=== PATIENT | male | born 1975 | race Caucasian/White ===

== ENCOUNTER → 2016-07-23 | Day surgery (SDC) | payer OTHER ==
[2016-07-16 15:22] VITALS: BMI 22.0
[~2016-07-23] VITALS: Ht 180.3 cm; Wt 72.7 kg
[~2016-07-23] MED LIST: BUDE0.09 PO; ERGO1CAP35 PO; ERGO500037 PO; FOLI1TAB7 PO; LEVO1TAB34 PO; LIDOCAINE HCL 2% 2 ML VIAL (20MG/ML) ONE; METH2.5T PO; METR-163 PO; MIDAZOLAM HCL 1 MG/ML 2ML VIAL ONE; MTR500 PO; ONDA4TAB65 PO; ONDA8TAB6 PO; OXYC-88 PO; OXYC15TA49 PO; OXYC1TAB3 PO; PRED10TA PO; PROC1TAB5 PO; PROPOFOL IV EMULSION 10 MG/ML 20 ML VIAL IV ONE; SODIUM CHLORIDE 0.9% 500ML 500 ML IV ONE; VNTHFA/IN INH
[2016-07-23 11:09] VITALS: Ht 180.3 cm; Wt 72.7 kg
[2016-07-23 11:34] VITALS: TEMP 36.9
--- NOTE | 2016-07-23 12:36 | Endo History and Physical ---
History & Physical Date of Service: Jul 23, 2016. Chief Complaint: crohns disease Referring Physician: Dr Arnulfo Arreaga History of Present Illness 40 yo CM who presents for colonoscopy secondary to Crohn's Disease. Past Medical History Gastrointestinal Disorder, Other Past Surgical History Hx Cardiac Surgery: No Hx Internal Defibrillator: No Hx Abdominal Surgery: Yes (2 COLON RESECTION, APPY, ILEECTOMY) Hx of Implantable Prosthesis: No Hx Post-Op Nausea and Vomiting: No Hx Cancer Surgery: No Hx Thoracic Surgery: No Hx Orthopedic: No Hx Urinary Tract Surgery: Yes (VASECTOMY) Family History IBD Social History Smoking Status: Never Smoker Hx Substance Use: No Hx Alcohol Use: No Allergies Coded Allergies: Vedolizumab (Verified Allergy, Severe, LEG SWOLLEN, 08/13/15) Azathioprine (Verified Allergy, Unknown, JOINTS SWELLING, 07/16/16) Infliximab (Verified Adverse Reaction, Unknown, "remicade stopped working for me", 08/13/15) Morphine (Verified Adverse Reaction, Unknown, "does not work for me;only dilaudid", 08/13/15) Current Medications Reported Home Medications Medications Dose Route/Sig Max Daily Dose Days Date Category Dose Instructions Oxycodone/Acetaminophen 10MG/325MG 1 Tab Tab 1 Tab PO Q4H PRN 07/16/16 Reported Zofran (Ondansetron Hcl) 4 Mg Tab 4 Mg PO PRN PRN 07/16/16 Reported Methotrexate 2.5 Mg Tab 6 Tab PO DAILY 07/16/16 Reported TAKES ON MONDAYS Folvite (Folic Acid) 1 Mg Tab 1 Mg PO 6XWK 07/16/16 Reported Budesonide 3 Mg Cap 3 Tab PO DAILY 07/16/16 Reported Flagyl (Metronidazole) 500 Mg Tab 500 Mg PO TID 07/16/16 Reported Compazine (Prochlorperazine Maleate) 10 Mg Tab 10 Mg PO Q6H PRN 07/16/16 Reported Vitamin D Cap (Ergocalciferol) 50,000 Interunit Cap 50,000 Inter.unit PO WK 07/30/15 Reported Vital Signs Weight (Kilograms): 72.73 Height (Feet): 5 Height (Inches): 11 Date Time Temp Pulse Resp B/P Pulse Ox O2 Delivery O2 Flow Rate FiO2 07/23/16 11:34 36.9 75 20 118/65 95 Room Air Physical Exam General Appearance: WD/WN, no apparent distress Respiratory/Chest: Auscultation: breath sounds normal Cardiovascular: Heart Auscultation: RRR Abdomen: Bowel Sounds: normal Inspection & Palpation: soft, non-distended, no tenderness, guarding & rebound Assessment and Plan Assessment: 40 yo CM who presents for colonoscopy secondary to Crohn's Disease. Plan: Proceed with colonoscopy.
--- NOTE | 2016-07-23 13:10 | Anesthesiology Progress Note ---
Anesthesia Post Op Note Date & Time Jul 23, 2016 at 13:10 Vital Signs Pain Intensity: 0 Vital Signs Past 12 Hours Date Time Temp Pulse Resp B/P Pulse Ox O2 Delivery O2 Flow Rate FiO2 07/23/16 12:57 86 20 93/62 95 Room Air 07/23/16 11:34 36.9 75 20 118/65 95 Room Air Notes Mental Status: alert / awake / arousable, participated in evaluation Pt Amnestic to Procedure: Yes Nausea / Vomiting: adequately controlled Pain: adequately controlled Airway Patency, RR, SpO2: stable & adequate BP & HR: stable & adequate Hydration State: stable & adequate Anesthetic Complications: no major complications apparent Pt doing well.
--- NOTE | 2016-07-23 13:22 | Discharge Instructions ---
Endoscopy Patient Instructions Date / Procedure(s) Performed Jul 23, 2016. Colonoscopy Allergy Information Coded Allergies: Vedolizumab (Verified Allergy, Severe, LEG SWOLLEN, 08/13/15) Azathioprine (Verified Allergy, Unknown, JOINTS SWELLING, 07/16/16) Infliximab (Verified Adverse Reaction, Unknown, "remicade stopped working for me", 08/13/15) Morphine (Verified Adverse Reaction, Unknown, "does not work for me;only dilaudid", 08/13/15) Discharge Date / Findings Jul 23, 2016. Crohn's Disease Anal fistula Poor bowel prep Medication Instructions OK to resume all medications today as prescribed Reported Home Medications Medications Dose Route/Sig Max Daily Dose Days Date Category Dose Instructions Oxycodone/Acetaminophen 10MG/325MG 1 Tab Tab 1 Tab PO Q4H PRN 07/16/16 Reported Zofran (Ondansetron Hcl) 4 Mg Tab 4 Mg PO PRN PRN 07/16/16 Reported Methotrexate 2.5 Mg Tab 6 Tab PO DAILY 07/16/16 Reported TAKES ON MONDAYS Folvite (Folic Acid) 1 Mg Tab 1 Mg PO 6XWK 07/16/16 Reported Budesonide 3 Mg Cap 3 Tab PO DAILY 07/16/16 Reported Flagyl (Metronidazole) 500 Mg Tab 500 Mg PO TID 07/16/16 Reported Compazine (Prochlorperazine Maleate) 10 Mg Tab 10 Mg PO Q6H PRN 07/16/16 Reported Vitamin D Cap (Ergocalciferol) 50,000 Interunit Cap 50,000 Inter.unit PO WK 07/30/15 Reported Provider Instructions Activity Restrictions - No exercising or heavy lifting for 24 hours. - Do not drink alcohol the day of the procedure. - Do not drive a car or operate machinery until the day after the procedure. - Do not make any important decisions or sign important papers in 24 hours after the procedure. Following Day: - Return to full activity which may include returning to work/school. Diet Start your diet with liquids and light foods (jello, soup, juice, toast). Then eat your usual diet if not nauseated. Treatment For Common After Affects For mild abdominal pain, bloating, or excessive gas: - Rest - Eat lightly - Lie on right side Follow-Up Information Follow-up with Dr Arnulfo Arreaga as scheduled Anesthesia Information What You Should Know You have had a procedure that required some medicine to reduce anxiety and discomfort. This treatment is called moderate sedation. After receiving the treatment, you may be sleepy, but you will be able to breathe on your own. The effects of the treatment may last for several hours. Follow these instructions along with Activity/Diet recommendations noted above: * Do NOT do anything where dizziness or clumsiness would be dangerous. * Rest quietly at home today, then you can be up and about tomorrow. * Have a responsible person stay with you the rest of today. * You may have had an I.V. today. If so, you may take the dressing off later today. Recommendations Call your doctor if: * Trouble breathing * Continuous vomiting for more than 24 hours * Temperature above 101 degrees * Severe abdominal pain or bloating * Pain not relieved by pain medicine ordered * There is increased drainage or redness from any incision * A large amount of rectal bleeding greater than 2-3 tablespoons. (If you had a polyp/s removed or have hemorrhoids, a small amount of blood - from the rectum is to be expected.) * You have any unanswered questions or concerns. IN THE EVENT OF A SERIOUS EMERGENCY, GO TO THE NEAREST EMERGENCY ROOM Your discharge instructions were prepared by provider Jerad Conde. Patient Instructions Signature Page Param Melissa Patient (or Guardian) Signature/Date: I have read and understand the instructions given to me by my caregivers. Caregiver/RN/Doctor Signature/Date: The above-named patient and/or guardian has received patient instructions on this date. + Original Patient Signature Page (only) stays with chart. Please make copy for patient.
[2016-07-23 13:27] VITALS: BP 120/70; PULSE 70; O2SAT 98
--- NOTE | 2016-07-23 13:28 | GI REPORT ---
Procedure Date: 07/23/2016 12:33 PM Procedure: Colonoscopy Indications: Follow-up of Crohn's disease Medicines: Monitored Anesthesia Care Complications: No immediate complications. Estimated Blood Loss: Estimated blood loss: none. Procedure: Pre-Anesthesia Assessment: - Prior to the procedure, a History and Physical was performed, and patient medications and allergies were reviewed. The patient's tolerance of previous anesthesia was also reviewed. The risks and benefits of the procedure and the sedation options and risks were discussed with the patient. All questions were answered, and informed consent was obtained. Prior Anticoagulants: The patient has taken no previous anticoagulant or antiplatelet agents. ASA Grade Assessment: II - A patient with mild systemic disease. After reviewing the risks and benefits, the patient was deemed in satisfactory condition to undergo the procedure. After I obtained informed consent, the scope was passed under direct vision. Throughout the procedure, the patient's blood pressure, pulse, and oxygen saturations were monitored continuously. The scope was introduced through the anus with the intention of advancing to the ileum. The scope was advanced to the sigmoid colon before the procedure was aborted. Medications were given. The colonoscopy was aborted due to poor bowel prep with stool present. Lavage did not allow for the successful completion of the procedure. The colonoscopy was performed without difficulty. The patient tolerated the procedure well. The quality of the bowel preparation was inadequate. No anatomical landmarks were photographed. Findings: The perianal exam findings include perianal fistula. Semi-solid stool was found in the rectum and in the sigmoid colon, precluding visualization. Impression: - The procedure was aborted due to poor bowel prep with stool present. - Preparation of the colon was inadequate. - Perianal fistula found on perianal exam. - Stool in the rectum and in the sigmoid colon. - No specimens collected. Recommendation: - Resume previous diet. - Continue present medications. - Repeat colonoscopy because the bowel preparation was poor. - Return to GI office as previously scheduled. Jerad Conde, 07/23/2016 1:27:25 PM This report has been signed electronically. Note Initiated On: 07/23/2016 12:33 PM I attest to the content of the Intraoperative Record and orders documented therein, exceptions below
== END | disposition home or self-care (01) ==
LOC: C.GI 10:54
PROVIDERS: ATTEND Internal Medicine
DX: K50.90 Crohn's disease, unspecified, without complications (principal); Z53.09 Procedure and treatment not carried out because of other contraindication; Z90.49 Acquired absence of other specified parts of digestive tract; Z88.8 Allergy status to other drugs, medicaments and biological substances; Z83.79 Family history of other diseases of the digestive system; Z88.5 Allergy status to narcotic agent

== ENCOUNTER 2016-10-01 13:03 | Inpatient (IN) | payer OTHER ==
[~2016-10-01] VITALS: Ht 180.3 cm; Wt 72.6 kg
[~2016-10-01 13:03] MED LIST changes: -ERGO500037 PO; -LEVO1TAB34 PO; -LIDOCAINE HCL 2% 2 ML VIAL (20MG/ML) ONE; -MIDAZOLAM HCL 1 MG/ML 2ML VIAL ONE; -MTR500 PO; -ONDA8TAB6 PO; -OXYC15TA49 PO; -OXYC1TAB3 PO; -PRED10TA PO; -PROPOFOL IV EMULSION 10 MG/ML 20 ML VIAL IV ONE; -SODIUM CHLORIDE 0.9% 500ML 500 ML IV ONE; -VNTHFA/IN INH
[2016-10-01] MEDS ORDERED: OPTIRAY 320 IV PRN (13:30)
[2016-10-01] MEDS ORDERED: SODIUM CHLORIDE 0.9% 1000ML 2,000 ML IV ONE (13:30)
[2016-10-01] MEDS: ONDANSETRON INJ 2 MG/ML 2 ML VIAL IV PRN ×3 (13:41→19:29)
[2016-10-01] MEDS: HYDROmorphone INJ 1 MG/ML SYR IV PRN ×4 (13:42→19:22)
--- NOTE | 2016-10-01 13:52 | EMERGENCY ROOM VISIT NOTE ---
History Report prepared by Je: Lalitha Fletcher Under the Supervision of: Dr. Hal Garcia M.D. First contact with patient: 13:21 Chief Complaint: ABDOMINAL PAIN Nursing Triage Summary: Pt transferred from [facility] for eval of Crohn's disease. Dr. Conde contacted about patient's transfer. History of Present Illness The patient is a 40 year old male who presents to the Emergency Room with complaints of constant abdominal pain beginning yesterday. The patient states that he had a history of Crohn's Disease and has had it for 11 years. He notes that he has a history of multiple surgeries and has also had fistulas. He reports that his pain today feels similar to when he had a fistula but it is difficult to evaluate due to diffuse tenderness. The patient complains of nausea , fever, and decreased appetite. He states that he was seen by his doctor this morning and was sent here with a fever and high white blood count. The patient denies any leg pain. I spoke to the patient's PCP prior to arrival and he notes that the patient had a high WBC count and a fever. He notes that the patient is on Vancomycin, Flagyl, and Ancef. Source of History: patient Onset: yesterday Position: abdomen Quality: other (tender) Timing: constant Associated Symptoms: + fevers, + nausea Note: The patient denies any leg pain. Review of Systems All systems have been listed, reviewed, and are negative other than those previously mentioned. Please see Additional Medical History Sheet. Past Medical & Surgical Medical Problems: (1) Crohn's disease (2) Exacerbation of Crohn's disease (3) Knee effusion, right (4) Knee pain (5) Knee swelling Surgical Problems: (1) H/O resection of small bowel (2) Hx of appendectomy Family History FH: Crohn's disease Social History Smoking Status: Never Smoker Marital Status: single Occupation Status: unemployed Current/Historical Medications Scheduled Budesonide (Budesonide), 3 TAB PO DAILY Ergocalciferol (Vitamin D Cap), 50,000 INTER.UNIT PO WK Folic Acid (Folvite), 1 MG PO 6XWK Methotrexate (Methotrexate), 6 TAB PO DAILY Scheduled PRN Ondansetron Hcl (Zofran), 4 MG PO PRN PRN for Nausea Oxycodone/Acetaminophen 10MG/325MG (Oxycodone/Acetaminophen 10MG/325MG), 1 TAB PO Q4H PRN for Pain Prochlorperazine Maleate (Compazine), 10 MG PO Q6H PRN for Nausea Allergies Coded Allergies: Vedolizumab (Verified Allergy, Severe, LEG SWOLLEN, 10/01/16) Azathioprine (Verified Allergy, Unknown, JOINTS SWELLING, 10/01/16) Infliximab (Verified Adverse Reaction, Unknown, "remicade stopped working for me", 10/01/16) Morphine (Verified Adverse Reaction, Unknown, "does not work for me;only dilaudid", 10/01/16) Uncoded Allergies: ENTYVIO (Allergy, Unknown, SWELLING, 10/01/16) Physical Exam Vital Signs Date Time Temp Pulse Resp B/P (MAP) Pulse Ox O2 Delivery O2 Flow Rate FiO2 10/01/16 17:53 100 14 10/01/16 17:48 99 17 10/01/16 17:43 98 13 10/01/16 17:38 96 12 10/01/16 17:33 96 12 10/01/16 17:33 105 10/01/16 17:28 102 15 10/01/16 17:23 106 16 10/01/16 17:18 103 13 95 10/01/16 17:13 103 14 96 10/01/16 17:08 105 14 95 10/01/16 17:03 105 18 95 10/01/16 16:58 105 14 95 10/01/16 16:53 106 15 95 10/01/16 16:48 106 14 96 10/01/16 16:43 105 16 97 10/01/16 16:38 106 14 95 10/01/16 16:33 103 12 95 10/01/16 16:28 104 12 96 10/01/16 16:23 102 11 95 10/01/16 16:22 101 20 130/78 96 Room Air 10/01/16 16:22 130/78 10/01/16 16:08 110 15 10/01/16 16:03 111 18 10/01/16 15:58 112 20 10/01/16 15:53 106 17 10/01/16 15:48 113 16 10/01/16 15:43 112 15 10/01/16 15:38 110 15 10/01/16 15:33 110 16 10/01/16 15:28 111 15 10/01/16 15:24 126/79 10/01/16 15:23 110 15 10/01/16 15:18 110 14 10/01/16 15:13 109 15 10/01/16 15:08 107 14 10/01/16 15:03 104 15 10/01/16 14:58 105 17 10/01/16 14:53 100 14 10/01/16 14:48 97 19 10/01/16 14:43 102 19 10/01/16 14:38 198 15 98 10/01/16 14:33 200 22 98 10/01/16 14:30 99 15 126/79 100 Room Air 10/01/16 14:29 126/79 10/01/16 14:28 102 15 10/01/16 14:23 99 13 10/01/16 14:18 97 14 10/01/16 14:13 101 21 10/01/16 14:08 105 24 10/01/16 14:03 100 16 10/01/16 13:58 97 15 10/01/16 13:53 94 21 10/01/16 13:48 95 13 10/01/16 13:43 96 13 99 10/01/16 13:38 94 23 98 10/01/16 13:33 95 10/01/16 13:33 97 17 99 10/01/16 13:28 98 Room Air 10/01/16 13:09 37.8 99 18 117/80 100 Room Air 10/01/16 13:07 117/80 Physical Exam GENERAL: Patient awake, alert, oriented x 3. Patient follows commands. Patient does not appear toxic. He is in moderate to severe distress. Patient is mildly dehydrated. SKIN: No erythema, pallor, cyanosis or rash HEENT: Normal head, pupils equal, reactive to light and accommodation. Ears normal. Oral cavity and posterior pharynx appear normal. Mucous membranes are dry. Neck: Without adenopathy, no neck vein distention. LUNGS: Clear to auscultation. No wheezes, no rales, no rhonchi. HEART: No murmurs. No gallops. No rubs ABDOMEN: No masses, marked tenderness to the right lower abdomen with positive rebound and guarding, no hepatomegaly or splenomegaly. Old well healed mid abdominal scar. EXTREMITIES: No signs of trauma. No pedal or pretibial edema. No calf or thigh tenderness. NEUROLOGIC: Cranial nerves II-XII within normal limits. No gross motor sensory function deficits. Medical Decision & Procedures Laboratory Results Test 10/01/16 14:03 10/01/16 14:50 10/01/16 17:37 Est Creatinine Clear Calc Drug Dose 100.8 ml/min Total Bilirubin 0.6 mg/dl (0.2-1) Aspartate Amino Transf (AST/SGOT) 14 U/L (15-37) Alanine Aminotransferase (ALT/SGPT) 23 U/L (12-78) Alkaline Phosphatase 106 U/L (45-117) Total Protein 7.5 gm/dl (6.4-8.2) Albumin 3.0 gm/dl (3.4-5.0) Globulin 4.5 gm/dl (2.5-4.0) Albumin/Globulin Ratio 0.7 (0.9-2) Lipase 85 U/L (73-393) Urine Color DK YELLOW Urine Appearance CLEAR (CLEAR) Urine pH 5.5 (4.5-7.5) Urine Specific [place] 1.022 (1.000-1.030) Urine Protein NEG (NEG) Urine Glucose (UA) NEG (NEG) Urine Ketones NEG (NEG) Urine Occult Blood NEG (NEG) Urine Nitrite NEG (NEG) Urine Bilirubin NEG (NEG) Urine Urobilinogen NEG (NEG) Urine Leukocyte Esterase NEG (NEG) Lactic Acid Level 0.5 mmol/L (0.4-2.0) Laboratory results as stated above per my review. Medications Administered Medications (Trade) Dose Ordered Sig/Alo Route Start Time Stop Time Status Last Admin Dose Admin Hydromorphone HCl (Dilaudid Inj) 1 mg Q1HWA PRN IV 10/01/16 13:30 10/01/16 20:54 DC 10/01/16 19:22 1 MG Ondansetron HCl (Zofran Inj) 4 mg Q1HWA PRN IV 10/01/16 13:30 10/01/16 20:54 DC 10/01/16 19:29 4 MG Sodium Chloride 2,000 ml @ 1,000 mls/hr Q2H ONCE IV 10/01/16 13:30 10/01/16 15:29 DC 10/01/16 13:41 1,000 MLS/HR Promethazine HCl 12.5 mg/Sodium Chloride 50.5 ml @ 204 mls/hr NOW STAT IV 10/01/16 15:36 10/01/16 15:50 DC 10/01/16 15:56 204 MLS/HR Sodium Chloride 1,000 ml @ 250 mls/hr Q4H STAT IV 10/01/16 15:50 10/01/16 19:49 DC 10/01/16 15:58 250 MLS/HR Hydromorphone HCl (Dilaudid Inj) 1 mg Q30M PRN IV 10/01/16 16:00 10/01/16 20:49 DC 10/01/16 15:59 1 MG Piperacillin Sod/ Tazobactam Sod (Zosyn Iv) 4.5 gm NOW STAT IV 10/01/16 16:35 10/01/16 16:36 DC 10/01/16 16:47 4.5 GM ECG Indication: abdominal pain Rate (beats per minute): 97 Rhythm: sinus rhythm Findings: 1st degree AV block, no acute ischemic change, no ectopy ED Course 1321: Past medical records reviewed. The patient was evaluated in room A11. A complete history and physical examination was performed. 1330: Sodium Chloride 2000 ml @ 1000 mls/hr IV, Zofran Inj 4mg PRN IV nausea, Dilaudid Inj 1mg PRN IV pain. 1532 the patient remains nauseous despite Zofran. He was ordered Phenergan. The patient has been unable to drink any of his contrast material. The patient will get a CT without oral contrast. The case will be signed out to Dr. Francisco at 15:44. Medical Decision Differential diagnosis includes Crohn's disease, bowel obstruction, fistula, abscess. The patient was sent here from [facility]. The patient has a long history of Crohn's disease and fistulas. He has required 2 surgeries. The patient has been seen by Dr. Conde in the past from gastroenterology. The patient is now here with pain for the past day. He is very nauseous and vomiting. The patient's white count was found to be elevated. Additional labs, urinalysis and imaging were obtained. Please see above. The patient was given IV pain medication and anti-emetics. Multiple labs were obtained. Please see above. White count is elevated. Patient was given IV fluids and pain medication. He was given Zofran and Phenergan for nausea. CT imaging results are pending. Case was signed off to Dr. Francisco at change of shift. Blood pressure Screening: Patient was found to have normal blood pressure on screening and does not require follow up. Medication Reconciliation: I attest that I have personally reviewed the patient' s current medication list. Impression Primary Impression: Exacerbation of Crohn's disease Scribe Attestation The scribe's documentation has been prepared under my direction and personally reviewed by me in its entirety. I confirm that the note above accurately reflects all work, treatment, procedures, and medical decision making performed by me. Departure Information Referrals Arnulfo Arreaga D.O. (PCP) Patient Instructions [facility]
[2016-10-01 14:13] LABS: BASO % 0.2 %; BASO ABS # 0.03 K/uL (0-0.2); COMPLETE YES; EOS % 0.5 %; HEMATOCRIT 37.6 % (42-52); IG% 0.3 %; LYMPH % 15.9 %; LYMPH ABS # 2.27 K/uL (1.2-3.4); MEAN CELL VOLUME 75.4 fL (80-100); MEAN CORPUSCULAR HEMOGLOBIN 24.6 pg (25-34); MEAN CORPUSCULAR HGB CONC 32.7 g/dl (32-36); MEAN PLATELET VOLUME 9.3 fL (7.4-10.4); MONO % 10.1 %; PLATELET COUNT 255 K/uL (130-400); RED BLOOD COUNT 4.99 M/uL (4.7-6.1); WHITE BLOOD COUNT 14.29 K/uL (4.8-10.8)
[2016-10-01 14:35] LABS: BUN/CREATININE RATIO 7.8 (10-20); POTASSIUM 3.8 mmol/L (3.5-5.1)
[2016-10-01 14:38] LABS: ALB/GLOB RATIO 0.7 (0.9-2)
[2016-10-01 14:45] LABS: CALCIUM 8.7 mg/dl (8.5-10.1)
[2016-10-01 15:27] LABS: MANUAL MICROSCOPIC REQUIRED? NO; REVIEW REQ? NO; URINE APPEARANCE CLEAR (CLEAR); URINE BILIRUBIN NEG (NEG); URINE COLOR DK YELLOW; URINE NITRITE NEG (NEG); URINE PH 5.5 (4.5-7.5); URINE SPECIFIC GRAVITY 1.022 (1.000-1.030); UROBILINOGEN NEG (NEG); ZZUR CULT IF INDIC CLEAN CATCH NO
[2016-10-01] MEDS ORDERED: PROMETHAZINE HCL INJ 12.5 MG in SODIUM CHLORIDE 0.9% 50ML 50 ML IV STA (15:36)
[2016-10-01] MEDS ORDERED: PROMETHAZINE HCL INJ 25 MG in SODIUM CHLORIDE 0.9% 50ML 50 ML IV STA (15:50)
[2016-10-01] MEDS ORDERED: SODIUM CHLORIDE 0.9% 1000ML 1,000 ML IV STA (15:50)
[2016-10-01] MEDS ORDERED: PROMETHAZINE HCL INJ 25 MG/ML 1 ML VIAL ONE (15:53)
[2016-10-01] MEDS ORDERED: HYDROmorphone INJ 1 MG/ML SYR IV PRN (16:00)
--- NOTE | 2016-10-01 16:29 | DIAGNOSTIC IMAGING REPORT ---
CT ABD/PELVIS IV CONTRAST ONLY CLINICAL HISTORY: Abdominal pain. Crohn's disease. Possible fistula. COMPARISON STUDY: 07/13/2015 TECHNIQUE: Following the IV administration of 116 mL of Optiray-320, CT scan of the abdomen and pelvis was performed from the lung bases to the proximal femurs. Images are reviewed in the axial, sagittal, and coronal planes. IV contrast was administered without complication. CT DOSE: 377.39 mGy.cm FINDINGS: Lower chest: There are right infrahilar airspace opacities suspicious for pneumonia. Imaging subsequent to treatment is recommended in follow-up. Liver: The contrast-enhanced liver is normal in size, contour, and attenuation. There is no intrahepatic biliary ductal dilatation. The hepatic veins and portal veins are patent. Gallbladder: Unremarkable. Spleen: Normal in size and attenuation. Pancreas: Unremarkable. Adrenal glands: Unremarkable. Kidneys: There is symmetric renal cortical enhancement. The kidneys are normal in size without hydronephrosis. Bowel: Bowel evaluation is significantly limited as no oral contrast was administered. There are postsurgical changes of a prior distal ileal resection with ileocolonic anastomosis. There is distal ileal bowel wall thickening with infiltration of the adjacent fat, consistent with active Crohn's disease. There are no transition zones to indicate bowel obstruction. There is infiltration of the soft tissues within the left gluteal fold. There is a suspected left-sided perianal fistula. There is a tiny fluid collection within the left medial gluteal fold consistent with a small abscess. This measures approximately 17 mm in diameter. Peritoneum: There is no intraperitoneal free air or abdominal ascites. Vasculature: The abdominal aorta is normal in course and caliber. Adenopathy: There are enlarged central mesenteric lymph nodes, likely reactive. Pelvic viscera: The bladder, and pelvic viscera are unremarkable. Skeletal structures: No destructive osseous lesions are seen. IMPRESSION: 1. Right lower lobe perihilar airspace consolidation consistent with pneumonia. Imaging subsequent to treatment is recommended in follow-up 2. Postsurgical changes of the distal ileal resection with ileocolonic anastomosis 3. Distal ileal bowel wall thickening with infiltration of the surrounding fat. The findings are consistent with active Crohn's disease 4. Infiltration the fat in the left gluteal fold. There is a 17 mm left medial gluteal fold abscess. 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 5. Central mesenteric lymphadenopathy, likely reactive. Electronically signed by: Lalo Aguilar M.D. 10/01/2016 4:28 PM Dictated Date/Time: 10/01/2016 4:20 PM
[2016-10-01] MEDS ORDERED: PIPERACILLIN/TAZOBACTAM 4.5 GM/100ML D5W IV STA (16:35)
[2016-10-01] MEDS ORDERED: ONDANSETRON INJ 2 MG/ML 2 ML VIAL IV PRN (18:00)
[2016-10-01] MEDS ORDERED: ACETAMINOPHEN 325 MG TAB PO PRN (18:00)
[2016-10-01 18:14] VITALS: O2SAT 96; Ht 180.3 cm; Wt 72.6 kg
--- NOTE | 2016-10-01 18:24 | EMERGENCY ROOM VISIT NOTE ---
ED Visit Note First contact with patient: 15:47 I received this patient at change of shift signout from Dr. Garcia. Please see his note for complete history and physical. The patient is a 40-year-old male who has a history of Crohn's disease. He is had problems with fistulas as well as medication noncompliance in the past. He presented to the emergency department today with severe pain low-grade fever and an elevated white blood cell count. He was sent to our facility for a CT the abdomen and pelvis because the previous facility he presented with unable to do a CAT scan. The patient's CAT scan report did show signs of inflammation which could be consistent with Crohn's disease. He also had a gluteal cleft abscess which he states is not a new finding for him. He was treated with IV fluids IV pain medicine and IV antiemetics. On subsequent reevaluation he was resting comfortable he. I discussed his case with the on-call [facility] hospitalist. They've agreed to evaluate the patient in the emergency department for further management and disposition. I discussed this patient with the on-call teacher physically impaired. He is recommended further treatment with IV antibiotics and they will evaluate him in consultation for further management.
[2016-10-01] MEDS: LEVALBUTEROL 1.25MG/0.5ML NEB INH SCH (21:00)
[2016-10-01] MEDS: IPRATROPIUM BROMIDE NEB SOLN 0.02% 2.5 ML VIAL INH SCH (21:00)
[2016-10-01] MEDS ORDERED: LEVALBUTEROL/IPRATROPIUM NEB INH SCH (21:00)
[2016-10-01] MEDS ORDERED: VANCOMYCIN CONSULT ACTIVE PRN (21:04)
--- NOTE | 2016-10-01 21:04 | History and Physical ---
History & Physical Date & Time of Service: Oct 01, 2016 at 20:50 Chief Complaint: Exacerbation Of Chrons Disease Primary Care Physician: Arnulfo Arreaga D.O. History of Present Illness Source: patient, hospital records 40 year old male with history of Crohn's Disease on Methotrexate, s/p Ileal Resection with Ileocolic Anastomosis 2014 in [facility], Perianal Abscess s/p Drainage March 2016, presenting with abdominal pain, vomiting and fever since last night. Patient follows with Dr. Conde for GI, Dr. Arreaga for PCP. Doing ok until last night when he started to have nausea/vomiting, RLQ abdominal pain, fever/chills. Last BM was this morning, loose brown, non bloody. (Patient reports he always have loose BMs). Was seen at another ER and sent to [facility]. At [facility] ER, patient was febrile, tachycardic, with elevated WBC. CT scan showed: 1. Right lower lobe perihilar airspace consolidation consistent with pneumonia. Imaging subsequent to treatment is recommended in follow-up 2. Postsurgical changes of the distal ileal resection with ileocolonic anastomosis 3. Distal ileal bowel wall thickening with infiltration of the surrounding fat. The findings are consistent with active Crohn's disease 4. Infiltration the fat in the left gluteal fold. There is a 17 mm left medial gluteal fold abscess. 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 5. Central mesenteric lymphadenopathy, likely reactive. Given IV fluids, Zosyn, Dilaudid. 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 Francisco, advised antibiotics. On exam, patient resting in bed, alert, oriented, reports persistent RLQ pain, shortly relieved by current analgesic regimen. Denies nausea. Has dry cough, occasional wheezing, no shortness of breath. States he has some increased drainage and tenderness from the left buttock abscess. No other symptoms. Past Medical/Surgical History Medical Problems: (1) Crohn's disease Status: Chronic (2) Knee effusion, right Status: Resolved (3) Knee pain Status: Resolved (4) Knee swelling Status: Resolved Surgical Problems: (1) H/O resection of small bowel Status: Resolved (2) Hx of appendectomy Status: Resolved Family History FH: Crohn's disease Social History Smoking Status: Former Smoker Smokeless Tobacco Use: No Alcohol Use: none Drug Use: none Marital Status: single Housing status: lives alone Occupational Status: unemployed, disabled Allergies Coded Allergies: Vedolizumab (Verified Allergy, Severe, LEG SWOLLEN, 10/01/16) Azathioprine (Verified Allergy, Unknown, JOINTS SWELLING, 10/01/16) Infliximab (Verified Adverse Reaction, Unknown, "remicade stopped working for me", 10/01/16) Morphine (Verified Adverse Reaction, Unknown, "does not work for me;only dilaudid", 10/01/16) Uncoded Allergies: ENTYVIO (Allergy, Unknown, SWELLING, 10/01/16) Home Medications Scheduled Budesonide (Budesonide), 3 TAB PO DAILY Ergocalciferol (Vitamin D Cap), 50,000 INTER.UNIT PO WK Folic Acid (Folvite), 1 MG PO 6XWK Methotrexate (Methotrexate), 6 TAB PO DAILY Scheduled PRN Ondansetron Hcl (Zofran), 4 MG PO PRN PRN for Nausea Oxycodone/Acetaminophen 10MG/325MG (Oxycodone/Acetaminophen 10MG/325MG), 1 TAB PO Q4H PRN for Pain Prochlorperazine Maleate (Compazine), 10 MG PO Q6H PRN for Nausea Review of Systems Constitutional- (+) as noted above Eyes- no acute visual changes ENT- no sinus drainage; no pharyngitis Pulmonary- no cough, no wheezing, no shortness of breath Cardiac- no chest pain, no palpitations, no orthopnea, no dependent edema GI- (+) as noted above - no dysuria, no hematuria Musculoskeletal- no arthralgias, no myalgias Derm- no rashes, no new skin lesions, no changing skin lesions Hematologic- no unusual bruising, no unusual bleeding Lymphatics- no adenopathy Endocrine- no polyuria or polydipsia; no heat or cold intolerance Neuro- no headaches, no focal neurologic symptoms Psych- no anxiety, no depression Physical Exam Vital Signs Date Time Temp Pulse Resp B/P (MAP) Pulse Ox O2 Delivery O2 Flow Rate FiO2 10/01/16 18:36 99 20 121/78 10/01/16 18:33 98 16 10/01/16 18:28 97 13 10/01/16 18:23 96 13 10/01/16 18:18 96 13 10/01/16 18:14 96 Room Air 10/01/16 18:13 93 13 6/9/17 18:08 101 8 17 18:03 94 10 17 17:58 98 11 17 17:53 100 14 17 17:48 99 17 17 17:43 98 13 17 17:38 96 12 17 17:33 96 12 17 17:33 105 17 17:28 102 15 17 17:23 106 16 17 17:18 103 13 95 17 17:13 103 14 96 17 17:08 105 14 95 17 17:03 105 18 95 17 16:58 105 14 95 17 16:53 106 15 95 17 16:48 106 14 96 10/01/16 16:43 105 16 97 17 16:38 106 14 95 10/01/16 16:33 103 12 95 10/01/16 16:28 104 12 96 10/01/16 16:23 102 11 95 10/01/16 16:22 101 20 130/78 96 Room Air 10/01/16 16:22 130/78 10/01/16 16:08 110 15 10/01/16 16:03 111 18 10/01/16 15:58 112 20 10/01/16 15:53 106 17 10/01/16 15:48 113 16 10/01/16 15:43 112 15 10/01/16 15:38 110 15 10/01/16 15:33 110 16 10/01/16 15:28 111 15 10/01/16 15:24 126/79 10/01/16 15:23 110 15 10/01/16 15:18 110 14 10/01/16 15:13 109 15 10/01/16 15:08 107 14 10/01/16 15:03 104 15 10/01/16 14:58 105 17 10/01/16 14:53 100 14 10/01/16 14:48 97 19 10/01/16 14:43 102 19 10/01/16 14:38 198 15 98 10/01/16 14:33 200 22 98 10/01/16 14:30 99 15 126/79 100 Room Air 10/01/16 14:29 126/79 10/01/16 14:28 102 15 10/01/16 14:23 99 13 10/01/16 14:18 97 14 10/01/16 14:13 101 21 10/01/16 14:08 105 24 10/01/16 14:03 100 16 10/01/16 13:58 97 15 10/01/16 13:53 94 21 10/01/16 13:48 95 13 10/01/16 13:43 96 13 99 10/01/16 13:38 94 23 98 10/01/16 13:33 95 10/01/16 13:33 97 17 99 10/01/16 13:28 98 Room Air 10/01/16 13:09 37.8 99 18 117/80 100 Room Air 10/01/16 13:07 117/80 General Appearance: WD/WN, no apparent distress Head: normocephalic, atraumatic Eyes: normal inspection, EOMI, sclerae normal ENT: normal ENT inspection, hearing grossly normal, pharynx normal Neck: supple, no adenopathy, thyroid normal, no JVD, trachea midline Respiratory/Chest: no respiratory distress, no accessory muscle use, + wheezing (mild mid-base wheezing) Cardiovascular: regular rate, rhythm, no edema, no JVD, no murmur, normal peripheral pulses Abdomen/GI: normal bowel sounds, soft, + pertinent finding ((+) rlq tenderness) Back: normal inspection, no CVA tenderness Extremities/Musculoskelatal: no calf tenderness, normal capillary refill, no pedal edema, + pertinent finding (left buttock- (+) small ulcer with surrounding erythema, induration, moderate tenderness) 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, no motor/sensory deficits, alert, normal mood/affect, normal reflexes, oriented x 3 Skin: normal color, warm/dry, no rash Lymphatic: no adenopathy Diagnostics Laboratory Results Results Past 24 Hours Test 10/01/16 14:03 10/01/16 14:50 10/01/16 17:37 Range/Units White Blood Count 14.29 4.8-10.8 K/uL Red Blood Count 4.99 4.7-6.1 M/uL Hemoglobin 12.3 14.0-18.0 g/dL Hematocrit 37.6 42-52 % Mean Corpuscular Volume 75.4 80-100 fL Mean Corpuscular Hemoglobin 24.6 25-34 pg Mean Corpuscular Hemoglobin Concent 32.7 32-36 g/dl Platelet Count 255 130-400 K/uL Mean Platelet Volume 9.3 7.4-10.4 fL Neutrophils (%) (Auto) 73.0 % Lymphocytes (%) (Auto) 15.9 % Monocytes (%) (Auto) 10.1 % Eosinophils (%) (Auto) 0.5 % Basophils (%) (Auto) 0.2 % Neutrophils # (Auto) 10.43 1.4-6.5 K/uL Lymphocytes # (Auto) 2.27 1.2-3.4 K/uL Monocytes # (Auto) 1.44 0.11-0.59 K/uL Eosinophils # (Auto) 0.07 0-0.5 K/uL Basophils # (Auto) 0.03 0-0.2 K/uL RDW Standard Deviation 44.6 36.4-46.3 fL RDW Coefficient of Variation 16.2 11.5-14.5 % Immature Granulocyte % (Auto) 0.3 % Immature Granulocyte # (Auto) 0.05 0.00-0.02 K/uL Sodium Level 139 136-145 mmol/L Potassium Level 3.8 3.5-5.1 mmol/L Chloride Level 104 98-107 mmol/L Carbon Dioxide Level 25 21-32 mmol/L Anion Gap 10.0 3-11 mmol/L Blood Urea Nitrogen 8 7-18 mg/dl Creatinine 1.00 0.60-1.40 mg/dl Est Creatinine Clear Calc Drug Dose 100.8 ml/min Estimated GFR () 108.6 Estimated GFR (Non- 93.7 BUN/Creatinine Ratio 7.8 10-20 Random Glucose 85 70-99 mg/dl Calcium Level 8.7 8.5-10.1 mg/dl Total Bilirubin 0.6 0.2-1 mg/dl Aspartate Amino Transf (AST/SGOT) 14 15-37 U/L Alanine Aminotransferase (ALT/SGPT) 23 12-78 U/L Alkaline Phosphatase 106 45-117 U/L Total Protein 7.5 6.4-8.2 gm/dl Albumin 3.0 3.4-5.0 gm/dl Globulin 4.5 2.5-4.0 gm/dl Albumin/Globulin Ratio 0.7 0.9-2 Lipase 85 73-393 U/L Urine Color DK YELLOW Urine Appearance CLEAR CLEAR Urine pH 5.5 4.5-7.5 Urine Specific [place] 1.022 1.000-1.030 Urine Protein NEG NEG Urine Glucose (UA) NEG NEG Urine Ketones NEG NEG Urine Occult Blood NEG NEG Urine Nitrite NEG NEG Urine Bilirubin NEG NEG Urine Urobilinogen NEG NEG Urine Leukocyte Esterase NEG NEG Lactic Acid Level 0.5 0.4-2.0 mmol/L Diagnostic Radiology per EKG SR with 1st degree av block Impression Assessment and Plan 40 year old male with history of Crohn's Disease on Methotrexate, s/p Ileal Resection with Ileocolic Anastomosis 2014 in [facility], Perianal Abscess s/p Drainage March 2016, presenting with abdominal pain, vomiting and fever since last night. CROHN'S DISEASE FLARE UP - hold Methotrexate - Prednisone 40mg po one dose IV Zosyn NPO IV fluids consult GI LEFT BUTTOCK ABSCESS, POSSIBLE PERIANAL FISTULA - Vanco + Zosyn IV - consult Gen Surg POSSIBLE RIGHT LOWER LOBE PNEUMONIA - from Aspiration? - Nebs antibiotics as noted above POSSIBLE SEPSIS - from above conditions - lactic acid normal - check blood cultures sputum culture - antibiotics as noted above IV fluids DVT PROPHYLAXIS SCDs DISPOSITION pending Advanced Directives Existing Living Will: No Existing Power of Ground Wirer: No VTE Prophylaxis VTE Risk Assessment Done? Y/N: Yes Risk Level: Moderate
[2016-10-01] MEDS ORDERED: PIPERACILL/TAZOBAC CONSULT ACTIVE PRN (21:15)
[2016-10-01] MEDS ORDERED: VANCOMYCIN INJ 1,700 MG in SODIUM CHLORIDE 0.9% 500ML 500 ML IV ONE (21:15)
[2016-10-01] MEDS: D5NSS + 20MEQ KCL 1,000 ML IV SCH (21:51)
[2016-10-01] MEDS: PIPERACILL/TAZOBAC IV 3.375 GM in DEXTROSE 5% 100ML IV SCH (22:02)
--- NOTE | 2016-10-01 22:12 | Pharmacy Progress Note ---
Pharmacy Abx Initial Consult Date of Service Oct 01, 2016. Pharmacy Dosing Scope Date of Consult: 10/01/16 Consultation requested by: Dr. Petersen Pharmacy is consulted to initiate Vancomycin and Zosyn IV dosing therapy, order appropriate labs and adjust drug dose/frequency. Subjective The patient is a 40 year old male admitted on Oct 01, 2016 at 17:56. Objective Height (Feet): 5 Height (Inches): 11.00 Weight (Kilograms): 72.600 Vital Signs (Past 12Hrs) Vital Signs Past 12 Hours Date Time Temp Pulse Resp B/P (MAP) Pulse Ox O2 Delivery O2 Flow Rate FiO2 10/01/16 18:36 99 20 121/78 10/01/16 18:33 98 16 10/01/16 18:28 97 13 10/01/16 18:23 96 13 10/01/16 18:18 96 13 10/01/16 18:14 96 Room Air 10/01/16 18:13 93 13 10/01/16 18:08 101 8 10/01/16 18:03 94 10 10/01/16 17:58 98 11 10/01/16 17:53 100 14 10/01/16 17:48 99 17 10/01/16 17:43 98 13 10/01/16 17:38 96 12 10/01/16 17:33 96 12 10/01/16 17:33 105 10/01/16 17:28 102 15 10/01/16 17:23 106 16 10/01/16 17:18 103 13 95 10/01/16 17:13 103 14 96 10/01/16 17:08 105 14 95 10/01/16 17:03 105 18 95 10/01/16 16:58 105 14 95 10/01/16 16:53 106 15 95 10/01/16 16:48 106 14 96 10/01/16 16:43 105 16 97 10/01/16 16:38 106 14 95 10/01/16 16:33 103 12 95 10/01/16 16:28 104 12 96 10/01/16 16:23 102 11 95 10/01/16 16:22 101 20 130/78 96 Room Air 10/01/16 16:22 130/78 10/01/16 16:08 110 15 10/01/16 16:03 111 18 10/01/16 15:58 112 20 6/9/17 15:53 106 17 10/01/16 15:48 113 16 10/01/16 15:43 112 15 10/01/16 15:38 110 15 10/01/16 15:33 110 16 10/01/16 15:28 111 15 10/01/16 15:24 126/79 10/01/16 15:23 110 15 10/01/16 15:18 110 14 10/01/16 15:13 109 15 10/01/16 15:08 107 14 10/01/16 15:03 104 15 10/01/16 14:58 105 17 10/01/16 14:53 100 14 10/01/16 14:48 97 19 10/01/16 14:43 102 19 10/01/16 14:38 198 15 98 10/01/16 14:33 200 22 98 10/01/16 14:30 99 15 126/79 100 Room Air 10/01/16 14:29 126/79 10/01/16 14:28 102 15 10/01/16 14:23 99 13 10/01/16 14:18 97 14 10/01/16 14:13 101 21 10/01/16 14:08 105 24 10/01/16 14:03 100 16 10/01/16 13:58 97 15 10/01/16 13:53 94 21 10/01/16 13:48 95 13 10/01/16 13:43 96 13 99 10/01/16 13:38 94 23 98 10/01/16 13:33 95 10/01/16 13:33 97 17 99 10/01/16 13:28 98 Room Air 10/01/16 13:09 37.8 99 18 117/80 100 Room Air 10/01/16 13:07 117/80 Lab Results (24Hrs) Laboratory Tests (24 Hours) Test 10/01/16 14:03 10/01/16 17:37 White Blood Count 14.29 K/uL (4.8-10.8) H Red Blood Count 4.99 M/uL (4.7-6.1) Hemoglobin 12.3 g/dL (14.0-18.0) L Hematocrit 37.6 % (42-52) L Mean Corpuscular Volume 75.4 fL (80-100) L Mean Corpuscular Hemoglobin 24.6 pg (25-34) L Mean Corpuscular Hemoglobin Concent 32.7 g/dl (32-36) Platelet Count 255 K/uL (130-400) Mean Platelet Volume 9.3 fL (7.4-10.4) Neutrophils (%) (Auto) 73.0 % Lymphocytes (%) (Auto) 15.9 % Monocytes (%) (Auto) 10.1 % Eosinophils (%) (Auto) 0.5 % Basophils (%) (Auto) 0.2 % Neutrophils # (Auto) 10.43 K/uL (1.4-6.5) H Lymphocytes # (Auto) 2.27 K/uL (1.2-3.4) Monocytes # (Auto) 1.44 K/uL (0.11-0.59) H Eosinophils # (Auto) 0.07 K/uL (0-0.5) Basophils # (Auto) 0.03 K/uL (0-0.2) Lactic Acid Level 0.5 mmol/L (0.4-2.0) Micro Results Date/Time Source Procedure Growth Status 10/01/16 21:33 Blood Blood Culture Pending Received 10/01/16 21:25 Blood Blood Culture Pending Received Risk Factors for Resistance * Immunocompromised (chronic steroid therapy, chemotherapy, immunomodulators) - - on Budesonide 9mg po daily for Crohn's disease. Also takes MTX Assessment & Plan Assessment 40 year old male with exacerbation of Crohn's disease and sepsis possibly secondary to aspiration pneumonia and/or buttock abscess with possible perianal fistula * ED note per Dr. Garcia states "I spoke to the patient's PCP prior to arrival and he notes that the patient had a high WBC count and a fever. He notes that the patient is on Vancomycin, Flagyl, and Ancef." Patient denies ever receiving Vancomycin when asked. Admitting provider Dr. Petersen's H&P did not mention patient being on Vancomycin prior to admission. He was unavailable at time consult was reviewed. Discussed situation with covering hospitalist, Dr. Salter. She discussed with nursing and concluded that patient was transferred from a smaller facility and perhaps was ordered those antibiotics, but never received any doses. She states per nursing, patient did not have IV access prior to presentation at [facility] therefore it is impossible that he had received Vancomycin recently. She gave approval to load and initiate Vancomycin. * Estimated pharmacokinetic parameters: * Ke ~0.087/hr, T1/2 ~8 hrs Plan Vancomycin IV * Loading dose: 1700 mg (23 mg/kg) * Maintenance dose: 1100 mg IV (15 mg/kg) every 10 hours * Goal trough level for pneumonia/abscess : 15 to 20 mcg/mL * Trough level ordered for 10/03 @ 0330 (prior to 3rd dose and therefore not reflective of steady state) Piperacillin/tazobactam * 4.5 g bolus administered over 30 minutes was given in the ED, then 3.375 g IV extended infusion every 8 hours for CrCl greater than 20 mL/min Pharmacy will continue to follow and will adjust dose/frequency as necessary. Thank you.
[2016-10-01] MEDS: HYDROmorphone INJ 2 MG/ML SYR/VIAL IV PRN (22:23)
[2016-10-02] VITALS (7 sets, daily range): BP systolic 102–112; BP diastolic 64–71; PULSE 67–97; TEMP 36.3–37.1; O2SAT 98–100
[2016-10-02] MEDS: ONDANSETRON INJ 2 MG/ML 2 ML VIAL IV PRN ×3 (01:35→17:19)
[2016-10-02] MEDS: HYDROmorphone INJ 2 MG/ML SYR/VIAL IV PRN ×5 (01:36→20:41)
[2016-10-02] MEDS: IPRATROPIUM BROMIDE NEB SOLN 0.02% 2.5 ML VIAL INH SCH ×4 (01:50→18:59)
[2016-10-02] MEDS: LEVALBUTEROL 1.25MG/0.5ML NEB INH SCH ×4 (01:50→18:59)
[2016-10-02] MEDS: PIPERACILL/TAZOBAC IV 3.375 GM in DEXTROSE 5% 100ML IV SCH ×3 (05:31→21:39)
[2016-10-02] MEDS: D5NSS + 20MEQ KCL 1,000 ML IV SCH ×3 (05:31→21:38)
[2016-10-02 07:13] LABS: COMPLETE YES; HEMATOCRIT 35.9 % (42-52); IG% 0.4 %; LYMPH ABS # 0.93 K/uL (1.2-3.4); MEAN CELL VOLUME 76.5 fL (80-100); MEAN CORPUSCULAR HEMOGLOBIN 24.9 pg (25-34); MEAN CORPUSCULAR HGB CONC 32.6 g/dl (32-36); MEAN PLATELET VOLUME 9.6 fL (7.4-10.4); MONO % 3.1 %; NEUT % 86.5 %; PLATELET COUNT 236 K/uL (130-400); RED BLOOD COUNT 4.69 M/uL (4.7-6.1); WHITE BLOOD COUNT 9.28 K/uL (4.8-10.8)
[2016-10-02 08:17] LABS: BUN/CREATININE RATIO 6.5 (10-20); CALCIUM 8.4 mg/dl (8.5-10.1); CREATININE 0.93 mg/dl (0.60-1.40); MAGNESIUM 2.1 mg/dl (1.8-2.4); PHOSPHORUS 3.1 mg/dl (2.5-4.9); POTASSIUM 4.4 mmol/L (3.5-5.1)
[2016-10-02] MEDS: VANCOMYCIN INJ 1,100 MG in SODIUM CHLORIDE 0.9% 250ML 250 ML IV SCH ×2 (08:57→18:05)
--- NOTE | 2016-10-02 10:07 | SURGICAL CONSULTATION ---
DATE OF CONSULTATION: 10/02/2016 DATE OF CONSULTATION: 10/02/2016. CONSULT REQUESTED FROM: Dr. Petersen for a rectal fistula. 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 At that time he had some complication with bleeding. He was then followed up by Dr. Conde who apparently in 2016 scoped and had recurrent disease and was sent to [place] where another 16 inches of small bowel was taken. Since that time, the patient pretty much has had constant pain limiting his activities and his lifestyle. He is on disability for the problem. He has lost over 100 pounds. He was last scoped by Dr. Conde approximately a year ago where at that time was told that there was no real recurrent disease. He presented here to the Emergency Room with significant abdominal pain where his CAT scan was obtained that showed a distal ileal wall thickening and infiltration surrounding consistent with active Crohn's disease and he also had left-sided perianal fistula. We were consulted regarding his perianal fistula. The patient apparently had a perirectal abscess approximately a year ago and was treated at [facility] where incision and drainage of this was performed and had been seeing a surgeon since that time, last time he saw him a few months ago stated that the area was healing well, although the patient states that periodically kept draining. PHYSICAL EXAMINATION: GENERAL: Today, the patient is in no acute distress. Obviously looking chronically ill. VITAL SIGNS: Temperature showed 36.3, pulse 67, respirations 18, blood pressure 108/71, O2 sats 100% on room air. LABORATORY LILLY: White count is 9.20, hemoglobin is 11.7. Chemistries are normal. ABDOMEN: Softly distended. He does elicit some tenderness in the right lower quadrant area. The perianal area was inspected. He does have a fistula left-sided at approximately 4 o'clock position, with residual effects from the I&D with a significant scar formation anterior to the area. I did not do a digital exam. There is no active drainage at this time. No evidence of any abscess. IMPRESSION: At this point, there is nothing surgical to do for the patient, certainly manage his Crohn's disease more actively. I would recommend that the only option offered him would place a [place] in that area and this was discussed with the patient. This certainly does not need to be done at this time. We will follow along with you. SELVIND
--- NOTE | 2016-10-02 14:07 | GASTROINTESTINAL CONSULTATION ---
DATE OF CONSULTATION: 10/02/2016 DATE OF CONSULTATION: 10/02/2016. CHIEF COMPLAINT: Abdominal discomfort. HISTORY OF PRESENT ILLNESS: The patient is a 40-year-old male with a past medical history significant for Crohn's disease who presented to the Emergency Room for evaluation of abdominal discomfort, nausea and vomiting. The patient reports that the symptoms have been ongoing for approximately 2-3 weeks. The patient is normally followed by Dr. Conde and but underwent his last colonoscopy with his internal medicine provider (Dr. Arreaga) at [facility]. The patient does not know the findings. The patient was seen in the Emergency Room yesterday and found to have inflammatory changes in the distal ileum consistent with Crohn's inflammatory changes. The patient does report having been on multiple medications over the years, which include Remicade, Humira and Cimzia. He reports that he has been intolerant most of these and is now maintained on Methotrexate and Budesonide. The patient has had several surgical procedures, one done at [facility] and one done at [facility] results of these are unavailable for review today. Based on available notes it appears he may have had an Ileocectomy and the small bowel resection due to a stricture. PAST MEDICAL HISTORY: Crohn's disease, joint pain and perianal fistulas. PAST SURGICAL HISTORY: Small bowel resection x2, perianal fistula aspirations. SOCIAL HISTORY: The patient is a prior smoker. Denies alcohol consumption presently or drug use. ALLERGIES: MULTIPLE AGENTS TO INCLUDE INFLIXIMAB/Humira/Cimzia, MORPHINE . OUTPATIENT MEDICATIONS: 1. Budesonide 3 mg daily. 2. Vitamin D. 3. Folic acid. 4. Methotrexate 6 mg daily. REVIEW OF SYSTEMS: CONSTITUTIONAL: The patient does note having abdominal discomfort, fevers and chills. EYES: No changes in vision. CARDIAC: No chest pain, no palpitations. PULMONARY: No shortness of breath. No cough today. GASTROINTESTINAL: Please see history of present illness. GENITOURINARY: No dysuria. ENDOCRINE: No polyuria noted. MUSCULOSKELETAL: No noted joint pains. No new muscle pains. HEAD, EYES, EARS, NOSE, AND THROAT: No difficulty swallowing. NEUROLOGIC: No headache. No double vision. PSYCHIATRIC: No depression today. PHYSICAL EXAMINATION: VITAL SIGNS: Temperature 36.3, pulse 67, respiratory rate 18, blood pressure is 108/71. GENERAL: No scleral icterus noted. No JVD noted. LUNGS: Clear to auscultation. CARDIAC: Regular rate and rhythm. ABDOMEN: Soft. The patient with mild tenderness, nonfocal. No rebound or peritoneal signs. EXTREMITIES: No edema. DERMATOLOGY: No spider nevi. No rashes noted. LABORATORY DATA: White blood cell count today is 9.2 from 14.2 yesterday, hemoglobin 11.7, hematocrit is 35.9, platelet count is 236. Sodium is 139, potassium is 4.4, chloride is 107, BUN is 6, creatinine is 0.93, calcium is 8.3, phosphorus is 3.1. AST 14, ALT 23, alkaline phosphatase 106, albumin is 3.0. Lipase is 85. IMAGING STUDIES: CT dated 10/01/2016 IMPRESSION: 1. Right lower lobe infiltrates. 2. Surgical changes in the distal ileum consistent with ileocolonic anastomosis. 3. Distal ileal bowel wall thickening consistent with active Crohn's disease. 4. Infiltration of fat gluteal fold with a 17 mm left gluteal fold abscess and left-sided perianal fistula. IMPRESSION: A 40-year-old male with a past history notable for fistulizing Crohn's disease presenting with abdominal pain, fevers and chills. Given the patient's presentation, I would suggest continued use of broad-spectrum antibiotics to include Cipro and Flagyl. At this point, we should hold on addition of steroids given the abscess seen in the gluteal region. The patient's long-term management will need to be determined by his regular GI provider or perhaps an inflammatory bowel disease specialist as he has been refractory to numerous biologics in the past. RECOMMENDATIONS: 1. Advance to a full liquid diet. 2. Continue with ciprofloxacin and Flagyl. 3. Would screen for C. diff with a stool study. 4. Please call with any questions or concerns. MTDD
--- NOTE | 2016-10-02 18:07 | Progress Note ---
Medicine Progress Note Date & Time of Visit: Oct 02, 2016 at 17:58. Subjective patient states he feels improved compared to yesterday still has RLQ pain but less nausea no fever/chills., no hematochezia has dry cough, no dyspnea left buttock still painful- baseline per patient Objective Last 8 Hrs Date Time Temp Pulse Resp B/P (MAP) Pulse Ox O2 Delivery O2 Flow Rate FiO2 10/02/16 16:00 Room Air 10/02/16 15:47 36.8 85 20 102/64 (77) 99 Room Air 10/02/16 13:59 74 16 99 Room Air Physical Exam: General- oriented x 3 not in distress speaks in sentences with no effort Eyes- anicteric Neck- supple, no JVD Lungs- mild expiratory wheeze on the right, clear on the left Heart- regular rhythm; no murmur, normal rate Abdomen- normal bowel sounds, soft, non distended, (+) tenderness on RLQ Extremities- no pretibial edema, no calf tenderness; Neuro- alert, oriented x 3;no gross deficits Skin- warm & dry Laboratory Results: Last 24 Hours Test 10/02/16 06:50 White Blood Count 9.28 K/uL Red Blood Count 4.69 M/uL Hemoglobin 11.7 g/dL Hematocrit 35.9 % Mean Corpuscular Volume 76.5 fL Mean Corpuscular Hemoglobin 24.9 pg Mean Corpuscular Hemoglobin Concent 32.6 g/dl Platelet Count 236 K/uL Mean Platelet Volume 9.6 fL Neutrophils (%) (Auto) 86.5 % Lymphocytes (%) (Auto) 10.0 % Monocytes (%) (Auto) 3.1 % Eosinophils (%) (Auto) 0.0 % Basophils (%) (Auto) 0.0 % Neutrophils # (Auto) 8.02 K/uL Lymphocytes # (Auto) 0.93 K/uL Monocytes # (Auto) 0.29 K/uL Eosinophils # (Auto) 0.00 K/uL Basophils # (Auto) 0.00 K/uL RDW Standard Deviation 45.4 fL RDW Coefficient of Variation 16.2 % Immature Granulocyte % (Auto) 0.4 % Immature Granulocyte # (Auto) 0.04 K/uL Sodium Level 139 mmol/L Potassium Level 4.4 mmol/L Chloride Level 107 mmol/L Carbon Dioxide Level 23 mmol/L Anion Gap 9.0 mmol/L Blood Urea Nitrogen 6 mg/dl Creatinine 0.93 mg/dl Est Creatinine Clear Calc Drug Dose 108.4 ml/min Estimated GFR () 118.6 Estimated GFR (Non- 102.3 BUN/Creatinine Ratio 6.5 Random Glucose 179 mg/dl Calcium Level 8.4 mg/dl Phosphorus Level 3.1 mg/dl Magnesium Level 2.1 mg/dl Date/Time Source Procedure Growth Status 10/01/16 21:33 Blood Blood Culture Pending Received 10/01/16 21:25 Blood Blood Culture Pending Received 10/01/16 22:15 Nasal MRSA DNA Surveillance Screen - Final Specimen Negative for MRSA by DNA Probe Complete Assessment & Plan 40 year old male with history of Crohn's Disease on Methotrexate, s/p Ileal Resection with Ileocolic Anastomosis 2014 in [facility], Perianal Abscess s/p Drainage March 2016, presenting with abdominal pain, vomiting and fever since last night. CROHN'S DISEASE FLARE UP - hold Methotrexate - Prednisone 40mg po one dose given no further steroids at this time per GI - will continue IV Zosyn for now (also to cover Aspiration pneumonia, Buttock abscess) clear liquids IV fluids appreciate GI service input LEFT BUTTOCK ABSCESS, POSSIBLE PERIANAL FISTULA - Vanco + Zosyn IV Day 2 ff up wound cultures - no surgical intervention at this time - Gen Surg Service input appreciated POSSIBLE RIGHT LOWER LOBE PNEUMONIA - likely from Aspiration? - on Zosyn V day 2 - Nebs POSSIBLE SEPSIS - from above conditions - lactic acid normal - blood cultures: pending sputum culture: pending - afebrile leukocytosis resolved - antibiotics as noted above IV fluids DVT PROPHYLAXIS SCDs ambulation DISPOSITION pending Current Inpatient Medications: Current Inpatient Medications Medications (Trade) Dose Ordered Sig/Alo Route Start Time Stop Time Status Last Admin Dose Admin Ioversol (Optiray 320) 100 ml UD PRN IV 10/01/16 13:30 10/05/16 13:29 Acetaminophen (Tylenol Tab) 650 mg Q4H PRN PO 10/01/16 18:00 10/31/16 17:59 Potassium Chloride/Dextrose/ Sod Cl 1,000 ml @ 125 mls/hr Q8H IV 10/01/16 21:00 10/31/16 20:59 10/02/16 13:29 125 MLS/HR Hydromorphone HCl (Dilaudid Inj) 2 mg Q3H PRN IV 10/01/16 20:45 10/15/16 20:44 10/02/16 17:19 2 MG Ondansetron HCl (Zofran Inj) 4 mg Q6H PRN IV 10/01/16 20:45 10/31/16 20:44 10/02/16 17:19 4 MG Ipratropium [place] (Atrovent 0.02% 0.5MG/2.5ML Neb) 0.5 mg Q6R INH 10/01/16 21:00 10/31/16 20:59 10/02/16 13:59 0.5 MG Levalbuterol (Xopenex 1.25MG/ 0.5ML Neb) 1.25 mg Q6R INH 10/01/16 21:00 10/31/16 20:59 10/02/16 13:59 1.25 MG Vancomycin HCl (Consult) 1 ea UD PRN N/A 10/01/16 21:04 10/31/16 21:03 Piperacillin Sod/ Tazobactam Sod (Consult) 1 ea UD PRN N/A 10/01/16 21:15 10/31/16 21:14 Piperacillin Sod/ Tazobactam Sod 3.375 gm/Dextrose 115 ml @ 28.75 mls/ hr Q8H IV 10/01/16 22:00 10/08/16 21:59 10/02/16 13:29 28.75 MLS/HR Vancomycin HCl 1100 mg/Sodium Chloride 272 ml @ 125 mls/hr Q10H IV 10/02/16 08:00 10/08/16 07:59 10/02/16 08:57 125 MLS/HR
[2016-10-03] VITALS (7 sets, daily range): BP systolic 112–124; BP diastolic 73–77; PULSE 68–92; TEMP 36.4–36.9; O2SAT 95–99
[2016-10-03] MEDS: HYDROmorphone INJ 2 MG/ML SYR/VIAL IV PRN ×7 (00:07→21:15)
[2016-10-03] MEDS: ONDANSETRON INJ 2 MG/ML 2 ML VIAL IV PRN ×2 (00:07→18:14)
[2016-10-03 03:27] LABS: BASO % 0.2 %; BASO ABS # 0.02 K/uL (0-0.2); COMPLETE YES; EOS % 1.7 %; HEMATOCRIT 28.3 % (42-52); IG% 0.2 %; LYMPH % 26.6 %; LYMPH ABS # 2.22 K/uL (1.2-3.4); MEAN CELL VOLUME 76.1 fL (80-100); MEAN CORPUSCULAR HEMOGLOBIN 24.2 pg (25-34); MEAN CORPUSCULAR HGB CONC 31.8 g/dl (32-36); MEAN PLATELET VOLUME 9.5 fL (7.4-10.4); MONO % 13.4 %; NEUT % 57.9 %; PLATELET COUNT 228 K/uL (130-400); RED BLOOD COUNT 3.72 M/uL (4.7-6.1); WHITE BLOOD COUNT 8.36 K/uL (4.8-10.8)
[2016-10-03] MEDS ORDERED: VANCOMYCIN TROUGH ONE (03:30)
[2016-10-03 03:43] LABS: BUN/CREATININE RATIO 6.7 (10-20); CALCIUM 7.7 mg/dl (8.5-10.1); CREATININE 0.93 mg/dl (0.60-1.40); MAGNESIUM 1.9 mg/dl (1.8-2.4); PHOSPHORUS 3.5 mg/dl (2.5-4.9)
[2016-10-03] MEDS: VANCOMYCIN INJ 1,100 MG in SODIUM CHLORIDE 0.9% 250ML 250 ML IV SCH (04:25)
[2016-10-03] MEDS: PIPERACILL/TAZOBAC IV 3.375 GM in DEXTROSE 5% 100ML IV SCH (05:37)
[2016-10-03] MEDS: D5NSS + 20MEQ KCL 1,000 ML IV SCH ×2 (05:37→15:01)
[2016-10-03] MEDS: LEVALBUTEROL 1.25MG/0.5ML NEB INH SCH ×3 (06:57→19:13)
[2016-10-03] MEDS: IPRATROPIUM BROMIDE NEB SOLN 0.02% 2.5 ML VIAL INH SCH ×3 (06:57→19:13)
--- NOTE | 2016-10-03 08:37 | SURGERY PROGRESS NOTE ---
DATE: 10/03/2016 Param is doing much better today. His abdomen is much softer. No fullness or tenderness right lower quadrant. The perianal area is unchanged. There is no evidence of any abscess or any drainage. At this point, I will leave further treatments to the primary service. From my point of view, he can be discharged. He should follow up with his primary surgeon in [place] regarding possibility of placing a [place] on that fistulous tract. I think that would be advisable, but I would rather see him get over the primary pathology which is the recurrent likely of Crohn's disease. At this point I have nothing further to add.
--- NOTE | 2016-10-03 08:53 | Pharmacy Progress Note ---
Pharmacy Abx Dose Progress Nt Date of Service Oct 03, 2016. Pharmacy Dosing Scope The patient is currently receiving the following antimicrobial agents per Pharmacy consult: * vancomycin 1100 mg IV every 11 hours * piperacillin/tazobactam 3.375 g IV every 8 hours Objective Height (Feet): 5 Height (Inches): 11.00 Weight (Kilograms): 72.600 Vital Signs (Past 12Hrs) Vital Signs Past 12 Hours Date Time Temp Pulse Resp B/P (MAP) Pulse Ox O2 Delivery O2 Flow Rate FiO2 10/03/16 07:17 36.4 76 18 124/76 (92) 97 Room Air 10/03/16 06:58 68 16 98 Room Air 10/03/16 00:47 36.8 74 18 112/73 (86) 95 Room Air 10/03/16 00:00 Room Air Lab Results (24Hrs) Laboratory Tests (24 Hours) Test 10/03/16 03:16 White Blood Count 8.36 K/uL (4.8-10.8) Red Blood Count 3.72 M/uL (4.7-6.1) L Hemoglobin 9.0 g/dL (14.0-18.0) L Hematocrit 28.3 % (42-52) L Mean Corpuscular Volume 76.1 fL (80-100) L Mean Corpuscular Hemoglobin 24.2 pg (25-34) L Mean Corpuscular Hemoglobin Concent 31.8 g/dl (32-36) L Platelet Count 228 K/uL (130-400) Mean Platelet Volume 9.5 fL (7.4-10.4) Neutrophils (%) (Auto) 57.9 % Lymphocytes (%) (Auto) 26.6 % Monocytes (%) (Auto) 13.4 % Eosinophils (%) (Auto) 1.7 % Basophils (%) (Auto) 0.2 % Neutrophils # (Auto) 4.84 K/uL (1.4-6.5) Lymphocytes # (Auto) 2.22 K/uL (1.2-3.4) Monocytes # (Auto) 1.12 K/uL (0.11-0.59) H Eosinophils # (Auto) 0.14 K/uL (0-0.5) Basophils # (Auto) 0.02 K/uL (0-0.2) Micro Results Date/Time Source Procedure Growth Status 10/01/16 21:33 Blood Blood Culture - Preliminary NO GROWTH TO DATE. Resulted 10/01/16 21:25 Blood Blood Culture - Preliminary NO GROWTH TO DATE. Resulted 10/01/16 22:15 Nasal MRSA DNA Surveillance Screen - Final Specimen Negative for MRSA by DNA Probe Complete 10/03/16 02:50 Stool Shiga Toxin Test Pending Received 10/03/16 02:50 Stool Stool Culture Pending Received 10/03/16 02:50 Stool C.difficile Toxin B Gene (PCR) - Final No C. difficile toxin B gene detected Complete 10/03/16 05:40 Sputum Expectorated Sputum Gram Stain - Final Resulted 10/03/16 05:40 Sputum Expectorated Sputum Sputum Culture Pending Resulted Risk Factors for Resistance * Immunocompromised * methotrexate at home Assessment & Plan Assessment * 40 year old male receiving broad-spectrum antibiotics for treatment of sepsis secondary to pneumonia (?aspiration) vs. buttock abscess vs. perianal fistula * Day # 3 of antimicrobial therapy * WBC now WNL, afebrile, and patient noted to be feeling better per progress notes Plan * continue broad-spectrum antibiotics at this time, consider de-escalation when able Vancomycin IV * Trough level of 13.5 mcg/mL is sub-therapeutic * Change to vancomycin 1000 mg IV every 8 hours * Goal trough level for sepsis: 15 to 20 mcg/mL * Trough level ordered for: 10/04/16 prior to the 12:00 dose Piperacillin/tazobactam * Continue 3.375 g IV extended infusion every 8 hours for CrCl greater than 20 mL/min Pharmacy will continue to follow and will adjust dose/frequency as necessary. Thank you.
--- NOTE | 2016-10-03 10:13 | Progress Note ---
Medicine Progress Note Date & Time of Visit: Oct 03, 2016 at 10:09. Subjective continues to feel improved abdominal pain improving, tolerating full liquids had formed stool, non bloody this morning coughing less, no dyspnea, no chest pain buttock pain about the same no other symptoms Objective Last 8 Hrs Date Time Temp Pulse Resp B/P (MAP) Pulse Ox O2 Delivery O2 Flow Rate FiO2 10/03/16 07:17 36.4 76 18 124/76 (92) 97 Room Air 10/03/16 06:58 68 16 98 Room Air Physical Exam: General- oriented x 3 not in distress speaks in sentences with no effort Eyes- anicteric Neck- no JVD Lungs- mild expiratory wheeze bilaterally, good air entry Heart- regular rhythm; no murmur, normal rate Abdomen- normal bowel sounds, soft, non distended, (+) mild tenderness on RLQ Extremities- no pretibial edema, no calf tenderness; Neuro- alert, oriented x 3;no gross deficits Skin- warm & dry Laboratory Results: Last 24 Hours Test 10/03/16 03:16 White Blood Count 8.36 K/uL Red Blood Count 3.72 M/uL Hemoglobin 9.0 g/dL Hematocrit 28.3 % Mean Corpuscular Volume 76.1 fL Mean Corpuscular Hemoglobin 24.2 pg Mean Corpuscular Hemoglobin Concent 31.8 g/dl Platelet Count 228 K/uL Mean Platelet Volume 9.5 fL Neutrophils (%) (Auto) 57.9 % Lymphocytes (%) (Auto) 26.6 % Monocytes (%) (Auto) 13.4 % Eosinophils (%) (Auto) 1.7 % Basophils (%) (Auto) 0.2 % Neutrophils # (Auto) 4.84 K/uL Lymphocytes # (Auto) 2.22 K/uL Monocytes # (Auto) 1.12 K/uL Eosinophils # (Auto) 0.14 K/uL Basophils # (Auto) 0.02 K/uL RDW Standard Deviation 45.2 fL RDW Coefficient of Variation 16.2 % Immature Granulocyte % (Auto) 0.2 % Immature Granulocyte # (Auto) 0.02 K/uL Sodium Level 143 mmol/L Potassium Level 4.0 mmol/L Chloride Level 112 mmol/L Carbon Dioxide Level 22 mmol/L Anion Gap 9.0 mmol/L Blood Urea Nitrogen 6 mg/dl Creatinine 0.93 mg/dl Est Creatinine Clear Calc Drug Dose 108.4 ml/min Estimated GFR () 118.6 Estimated GFR (Non- 102.3 BUN/Creatinine Ratio 6.7 Random Glucose 108 mg/dl Calcium Level 7.7 mg/dl Phosphorus Level 3.5 mg/dl Magnesium Level 1.9 mg/dl Vancomycin Level Trough 13.5 mcg/ml Date/Time Source Procedure Growth Status 10/03/16 02:50 Stool Shiga Toxin Test Pending Received 10/03/16 02:50 Stool Stool Culture Pending Received 10/03/16 02:50 Stool C.difficile Toxin B Gene (PCR) - Final No C. difficile toxin B gene detected Complete 10/03/16 05:40 Sputum Expectorated Sputum Gram Stain - Final Resulted 10/03/16 05:40 Sputum Expectorated Sputum Sputum Culture Pending Resulted 10/03/16 09:21 Drainage - Surface Buttock Left Gram Stain Pending Received 10/03/16 09:21 Drainage - Surface Buttock Left Wound Culture Pending Received Assessment & Plan 40 year old male with history of Crohn's Disease on Methotrexate, s/p Ileal Resection with Ileocolic Anastomosis 2014 in [facility], Perianal Abscess s/p Drainage March 2016, presenting with abdominal pain, vomiting and fever since last night. CROHN'S DISEASE FLARE UP - improving gradually - hold Methotrexate - Prednisone 40mg po one dose given no further steroids at this time per GI - change Zosyn day 3 to Levaquin + Flagyl Day 1 (also to cover Aspiration pneumonia, Buttock abscess) advance diet per GI IV fluids appreciate GI service input LEFT BUTTOCK ABSCESS, POSSIBLE PERIANAL FISTULA - Vanco + Zosyn IV Day 3--> change to levaquin + flagyl ff up wound cultures - no surgical intervention at this time - Gen Surg Service input appreciated POSSIBLE RIGHT LOWER LOBE PNEUMONIA - likely from Aspiration? - on Zosyn V day 3-- > change to levaquin + flagyl - Nebs POSSIBLE SEPSIS - from above conditions - lactic acid normal - blood cultures: negative sputum culture: pending wound culture: pending - afebrile leukocytosis resolved - antibiotics as noted above IV fluids DVT PROPHYLAXIS SCDs ambulation DISPOSITION pending possible d/c tomorrow if cleared by GI Current Inpatient Medications: Current Inpatient Medications Medications (Trade) Dose Ordered Sig/Alo Route Start Time Stop Time Status Last Admin Dose Admin Ioversol (Optiray 320) 100 ml UD PRN IV 10/01/16 13:30 10/05/16 13:29 Acetaminophen (Tylenol Tab) 650 mg Q4H PRN PO 10/01/16 18:00 10/31/16 17:59 Potassium Chloride/Dextrose/ Sod Cl 1,000 ml @ 125 mls/hr Q8H IV 10/01/16 21:00 10/31/16 20:59 10/03/16 05:37 125 MLS/HR Hydromorphone HCl (Dilaudid Inj) 2 mg Q3H PRN IV 10/01/16 20:45 10/15/16 20:44 10/03/16 06:04 2 MG Ondansetron HCl (Zofran Inj) 4 mg Q6H PRN IV 10/01/16 20:45 10/31/16 20:44 10/03/16 00:07 4 MG Ipratropium [place] (Atrovent 0.02% 0.5MG/2.5ML Neb) 0.5 mg Q6R INH 10/01/16 21:00 10/31/16 20:59 10/03/16 06:57 0.5 MG Levalbuterol (Xopenex 1.25MG/ 0.5ML Neb) 1.25 mg Q6R INH 10/01/16 21:00 10/31/16 20:59 10/03/16 06:57 1.25 MG Levofloxacin 500 mg/Prmx 100 ml @ 100 mls/hr Q24H IV 10/03/16 10:15 10/13/16 10:14 UNV Metronidazole 500 mg/Prmx 100 ml @ 100 mls/hr Q8H IV 10/03/16 10:15 10/13/16 10:14 UNV
--- NOTE | 2016-10-03 10:36 | Gastroenterology Progress Note ---
Progress Note Date of Service: Oct 03, 2016 Subjective Pt evaluation today including: conversation w/ patient, physical exam The patient notes feeling much improved today. He notes his appetite is starting to return and he tolerated liquids without difficulty yesterday. He denies having any hematochezia or alteration of bowel habits. Overall his abdominal pain is much better than it was prior to admission. Review of Systems Constitutional: + chills, + problem reported, No fever, No sweats, No fatigue Respiratory: No cough, No wheezing, No dyspnea at rest Abdomen: No pain, No constipation, No acolic stools, No jaundice Medications Current Inpatient Medications Medications (Trade) Dose Ordered Sig/Alo Route Start Time Stop Time Status Last Admin Dose Admin Ioversol (Optiray 320) 100 ml UD PRN IV 10/01/16 13:30 10/05/16 13:29 Acetaminophen (Tylenol Tab) 650 mg Q4H PRN PO 10/01/16 18:00 10/31/16 17:59 Potassium Chloride/Dextrose/ Sod Cl 1,000 ml @ 75 mls/hr [id number] IV 10/01/16 21:00 10/31/16 20:59 10/03/16 05:37 125 MLS/HR Hydromorphone HCl (Dilaudid Inj) 2 mg Q3H PRN IV 10/01/16 20:45 10/15/16 20:44 10/03/16 10:17 2 MG Ondansetron HCl (Zofran Inj) 4 mg Q6H PRN IV 10/01/16 20:45 10/31/16 20:44 10/03/16 00:07 4 MG Ipratropium [place] (Atrovent 0.02% 0.5MG/2.5ML Neb) 0.5 mg Q6R INH 10/01/16 21:00 10/31/16 20:59 10/03/16 06:57 0.5 MG Levalbuterol (Xopenex 1.25MG/ 0.5ML Neb) 1.25 mg Q6R INH 10/01/16 21:00 10/31/16 20:59 10/03/16 06:57 1.25 MG Levofloxacin 500 mg/Prmx 100 ml @ 100 mls/hr Q24H IV 10/03/16 11:00 10/13/16 10:59 Metronidazole 500 mg/Prmx 100 ml @ 100 mls/hr Q8H IV 10/03/16 12:00 10/13/16 11:59 Objective Vital Signs Date Time Temp Pulse Resp B/P (MAP) Pulse Ox O2 Delivery O2 Flow Rate FiO2 10/03/16 07:17 36.4 76 18 124/76 (92) 97 Room Air 10/03/16 06:58 68 16 98 Room Air 10/03/16 00:47 36.8 74 18 112/73 (86) 95 Room Air 10/03/16 00:00 Room Air 10/02/16 20:00 Room Air 10/02/16 18:59 78 18 99 Room Air 10/02/16 16:00 Room Air 10/02/16 15:47 36.8 85 20 102/64 (77) 99 Room Air 10/02/16 13:59 74 16 99 Room Air Physical Exam General Appearance: no apparent distress Eyes: PERRL Neck: supple Respiratory/Chest: lungs clear Cardiovascular: regular rate, rhythm, no edema, no murmur Abdomen: soft, + tenderness (mild epigastric tenderness improved from prior to admission) Neurologic/Psych: oriented x 3 Skin: no jaundice Laboratory Results Last 24 Hours Test 10/03/16 03:16 White Blood Count 8.36 K/uL Red Blood Count 3.72 M/uL Hemoglobin 9.0 g/dL Hematocrit 28.3 % Mean Corpuscular Volume 76.1 fL Mean Corpuscular Hemoglobin 24.2 pg Mean Corpuscular Hemoglobin Concent 31.8 g/dl Platelet Count 228 K/uL Mean Platelet Volume 9.5 fL Neutrophils (%) (Auto) 57.9 % Lymphocytes (%) (Auto) 26.6 % Monocytes (%) (Auto) 13.4 % Eosinophils (%) (Auto) 1.7 % Basophils (%) (Auto) 0.2 % Neutrophils # (Auto) 4.84 K/uL Lymphocytes # (Auto) 2.22 K/uL Monocytes # (Auto) 1.12 K/uL Eosinophils # (Auto) 0.14 K/uL Basophils # (Auto) 0.02 K/uL RDW Standard Deviation 45.2 fL RDW Coefficient of Variation 16.2 % Immature Granulocyte % (Auto) 0.2 % Immature Granulocyte # (Auto) 0.02 K/uL Sodium Level 143 mmol/L Potassium Level 4.0 mmol/L Chloride Level 112 mmol/L Carbon Dioxide Level 22 mmol/L Anion Gap 9.0 mmol/L Blood Urea Nitrogen 6 mg/dl Creatinine 0.93 mg/dl Est Creatinine Clear Calc Drug Dose 108.4 ml/min Estimated GFR () 118.6 Estimated GFR (Non- 102.3 BUN/Creatinine Ratio 6.7 Random Glucose 108 mg/dl Calcium Level 7.7 mg/dl Phosphorus Level 3.5 mg/dl Magnesium Level 1.9 mg/dl Vancomycin Level Trough 13.5 mcg/ml Assessment and Plan 40-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 The patient appears to be improved with use of intravenous broad-spectrum antibiotics. Recommendations Continue with Cipro and Flagyl coverage Continue with Budesonide 3 milligrams per day With methotrexate 6 mg per day Further recommendations with regard to his Crohn's disease will be addressed by his regular GI provider (Dr. Conde)
[2016-10-03] MEDS: LEVOFLOXACIN / D5W 500 MG in PREMIXED IN D5W 100 ML IV SCH (10:47)
[2016-10-03] MEDS ORDERED: VANCOMYCIN INJ 1,000 MG in SODIUM CHLORIDE 0.9% 250ML 250 ML IV SCH (12:00)
[2016-10-03] MEDS: METRONIDAZOLE / NSS 500 MG in PREMIXED NSS 100 ML IV SCH ×2 (12:08→21:14)
[2016-10-03] MEDS: ACYCLOVIR 5% OINT 15 GM TUBE EXT SCH ×2 (16:17→19:29)
[2016-10-04] MEDS: HYDROmorphone INJ 2 MG/ML SYR/VIAL IV PRN ×5 (00:15→15:49)
[2016-10-04] MEDS: METRONIDAZOLE / NSS 500 MG in PREMIXED NSS 100 ML IV SCH ×2 (06:14→13:31)
[2016-10-04] MEDS: D5NSS + 20MEQ KCL 1,000 ML IV SCH ×2 (06:15→17:34)
[2016-10-04] MEDS: IPRATROPIUM BROMIDE NEB SOLN 0.02% 2.5 ML VIAL INH SCH ×2 (06:49→13:37)
[2016-10-04 06:50] VITALS: PULSE 77; O2SAT 95
[2016-10-04] MEDS: LEVALBUTEROL 1.25MG/0.5ML NEB INH SCH ×2 (06:50→13:37)
[2016-10-04 07:19] LABS: BASO % 0.1 %; BASO ABS # 0.01 K/uL (0-0.2); COMPLETE YES; HEMATOCRIT 33.2 % (42-52); IG% 0.3 %; LYMPH % 18.3 %; LYMPH ABS # 1.77 K/uL (1.2-3.4); MEAN CELL VOLUME 74.8 fL (80-100); MEAN CORPUSCULAR HEMOGLOBIN 23.4 pg (25-34); MEAN CORPUSCULAR HGB CONC 31.3 g/dl (32-36); MEAN PLATELET VOLUME 9.3 fL (7.4-10.4); MONO % 9.9 %; NEUT % 69.4 %; PLATELET COUNT 315 K/uL (130-400); RED BLOOD COUNT 4.44 M/uL (4.7-6.1); WHITE BLOOD COUNT 9.68 K/uL (4.8-10.8)
[2016-10-04] MEDS: ACYCLOVIR 5% OINT 15 GM TUBE EXT SCH ×3 (07:31→17:46)
[2016-10-04 07:50] VITALS: BP 117/73; PULSE 81; TEMP 36.7; O2SAT 95
[2016-10-04 07:57] LABS: BUN/CREATININE RATIO 4.5 (10-20); CALCIUM 8.7 mg/dl (8.5-10.1); CREATININE 0.9 mg/dl (0.60-1.40); MAGNESIUM 2.1 mg/dl (1.8-2.4); PHOSPHORUS 3.4 mg/dl (2.5-4.9)
--- NOTE | 2016-10-04 10:15 | Gastroenterology Progress Note ---
Progress Note Date of Service: Oct 04, 2016 Subjective Pt evaluation today including: conversation w/ patient, physical exam, chart review, lab review, review of inpatient medication list Patient reports improved abdominal pain. Rates 6/10 at present. Continues IV antibiotics. No nausea, vomiting, diarrhea or bloody stools reported. Stool for C Diff was negative. CX and O&P pending. Tolerating full liquid diet. Review of Systems Constitutional: + see HPI Abdomen: + see HPI Medications Current Inpatient Medications Medications (Trade) Dose Ordered Sig/Alo Route Start Time Stop Time Status Last Admin Dose Admin Ioversol (Optiray 320) 100 ml UD PRN IV 10/01/16 13:30 10/05/16 13:29 Acetaminophen (Tylenol Tab) 650 mg Q4H PRN PO 10/01/16 18:00 10/31/16 17:59 Potassium Chloride/Dextrose/ Sod Cl 1,000 ml @ 75 mls/hr [id number] IV 10/01/16 21:00 10/31/16 20:59 10/04/16 06:15 75 MLS/HR Hydromorphone HCl (Dilaudid Inj) 2 mg Q3H PRN IV 10/01/16 20:45 10/15/16 20:44 10/04/16 09:35 2 MG Ondansetron HCl (Zofran Inj) 4 mg Q6H PRN IV 10/01/16 20:45 10/31/16 20:44 10/03/16 18:14 4 MG Ipratropium [place] (Atrovent 0.02% 0.5MG/2.5ML Neb) 0.5 mg Q6R INH 10/01/16 21:00 10/31/16 20:59 10/04/16 06:49 0.5 MG Levalbuterol (Xopenex 1.25MG/ 0.5ML Neb) 1.25 mg Q6R INH 10/01/16 21:00 10/31/16 20:59 10/04/16 06:50 1.25 MG Levofloxacin 500 mg/Prmx 100 ml @ 100 mls/hr Q24H IV 10/03/16 11:00 10/13/16 10:59 10/03/16 10:47 100 MLS/HR Metronidazole 500 mg/Prmx 100 ml @ 100 mls/hr Q8H IV 10/03/16 12:00 10/13/16 11:59 10/04/16 06:14 100 MLS/HR Acyclovir (Zovirax 5% Oint) 1 appln QID EXT 10/03/16 16:00 10/13/16 15:59 10/04/16 07:31 1 APPLN Objective Vital Signs Date Time Temp Pulse Resp B/P (MAP) Pulse Ox O2 Delivery O2 Flow Rate FiO2 10/04/16 09:03 Room Air 10/04/16 07:50 36.7 81 18 117/73 (88) 95 Room Air 10/04/16 06:50 77 16 95 Room Air 10/04/16 00:00 Room Air 10/03/16 22:16 36.5 80 16 117/76 (90) 99 Room Air 10/03/16 20:00 Room Air 10/03/16 19:13 80 16 98 Room Air 10/03/16 16:00 Room Air 10/03/16 15:59 36.9 92 18 123/77 (92) 97 Room Air 10/03/16 14:18 72 16 98 Room Air Physical Exam General Appearance: no apparent distress Eyes: EOMI Respiratory/Chest: lungs clear, normal breath sounds, no respiratory distress Cardiovascular: regular rate, rhythm, no gallop, no murmur Abdomen: normal bowel sounds, non tender, soft Extremities: normal inspection Neurologic/Psych: alert, normal mood/affect, oriented x 3 Skin: warm/dry Laboratory Results Last 24 Hours Test 10/04/16 07:00 White Blood Count 9.68 K/uL Red Blood Count 4.44 M/uL Hemoglobin 10.4 g/dL Hematocrit 33.2 % Mean Corpuscular Volume 74.8 fL Mean Corpuscular Hemoglobin 23.4 pg Mean Corpuscular Hemoglobin Concent 31.3 g/dl Platelet Count 315 K/uL Mean Platelet Volume 9.3 fL Neutrophils (%) (Auto) 69.4 % Lymphocytes (%) (Auto) 18.3 % Monocytes (%) (Auto) 9.9 % Eosinophils (%) (Auto) 2.0 % Basophils (%) (Auto) 0.1 % Neutrophils # (Auto) 6.72 K/uL Lymphocytes # (Auto) 1.77 K/uL Monocytes # (Auto) 0.96 K/uL Eosinophils # (Auto) 0.19 K/uL Basophils # (Auto) 0.01 K/uL RDW Standard Deviation 44.3 fL RDW Coefficient of Variation 16.0 % Immature Granulocyte % (Auto) 0.3 % Immature Granulocyte # (Auto) 0.03 K/uL Sodium Level 142 mmol/L Potassium Level 4.0 mmol/L Chloride Level 106 mmol/L Carbon Dioxide Level 27 mmol/L Anion Gap 9.0 mmol/L Blood Urea Nitrogen 4 mg/dl Creatinine 0.90 mg/dl Est Creatinine Clear Calc Drug Dose 112.0 ml/min Estimated GFR () 123.4 Estimated GFR (Non- 106.5 BUN/Creatinine Ratio 4.5 Random Glucose 104 mg/dl Calcium Level 8.7 mg/dl Phosphorus Level 3.4 mg/dl Magnesium Level 2.1 mg/dl Assessment and Plan Patient is a 40-year-old male with a history of fistula arising Crohn's disease currently improving on antibiotic coverage for a inflammatory change in the distal ileum and perirectal abscess. 1. Continue antibiotic therapy as prescribed. 2. Agree with Dr. Hoyt to continue Budesonide 3 mg daily. 3. Continued dietary advancement as tolerated. 4. Agree with tertiary evaluation as recommended by Dr. Hoyt. Patient has been evaluated previously by Dr. Gar at [facility] clinic. Patient is agreeable to return for additional recommendations. Will attempt to arrange outpatient appointment. Agree with LIGIA Ashley as above Patient was discharged prior to my evaluation.
[2016-10-04] MEDS: LEVOFLOXACIN / D5W 500 MG in PREMIXED IN D5W 100 ML IV SCH (11:23)
[2016-10-04] MEDS ORDERED: VANCOMYCIN TROUGH SCH (11:30)
[2016-10-04] MEDS: ONDANSETRON INJ 2 MG/ML 2 ML VIAL IV PRN (12:31)
[2016-10-04 13:35] VITALS: PULSE 79; O2SAT 98
[2016-10-04 15:34] VITALS: BP 114/70; PULSE 78; TEMP 36.8; O2SAT 99
--- NOTE | 2016-10-04 17:03 | Progress Note ---
Medicine Progress Note Date & Time of Visit: Oct 04, 2016 at 16:50. Subjective patient states he feels much better abdominal pain has improved, tolerating diet no melena/hematochezia cough improved, no dyspnea fever/chills buttock pain also improved states he is ready and would like to be discharged today Objective Last 8 Hrs Date Time Temp Pulse Resp B/P (MAP) Pulse Ox O2 Delivery O2 Flow Rate FiO2 10/04/16 15:34 36.8 78 16 114/70 (85) 99 Room Air 10/04/16 13:35 79 16 98 Room Air 10/04/16 09:03 Room Air Physical Exam: General- oriented x 3 not in distress speaks in sentences with no effort Eyes- anicteric Lungs- mild expiratory wheeze bilateral bases, good air entry Heart- regular rhythm; no murmur, normal rate Abdomen- normal bowel sounds, soft, non distended, NO tenderness on RLQ Extremities- no pretibial edema, no calf tenderness; Neuro- alert, oriented x 3;no gross deficits Skin- warm & dry Laboratory Results: Last 24 Hours Test 10/04/16 07:00 White Blood Count 9.68 K/uL Red Blood Count 4.44 M/uL Hemoglobin 10.4 g/dL Hematocrit 33.2 % Mean Corpuscular Volume 74.8 fL Mean Corpuscular Hemoglobin 23.4 pg Mean Corpuscular Hemoglobin Concent 31.3 g/dl Platelet Count 315 K/uL Mean Platelet Volume 9.3 fL Neutrophils (%) (Auto) 69.4 % Lymphocytes (%) (Auto) 18.3 % Monocytes (%) (Auto) 9.9 % Eosinophils (%) (Auto) 2.0 % Basophils (%) (Auto) 0.1 % Neutrophils # (Auto) 6.72 K/uL Lymphocytes # (Auto) 1.77 K/uL Monocytes # (Auto) 0.96 K/uL Eosinophils # (Auto) 0.19 K/uL Basophils # (Auto) 0.01 K/uL RDW Standard Deviation 44.3 fL RDW Coefficient of Variation 16.0 % Immature Granulocyte % (Auto) 0.3 % Immature Granulocyte # (Auto) 0.03 K/uL Sodium Level 142 mmol/L Potassium Level 4.0 mmol/L Chloride Level 106 mmol/L Carbon Dioxide Level 27 mmol/L Anion Gap 9.0 mmol/L Blood Urea Nitrogen 4 mg/dl Creatinine 0.90 mg/dl Est Creatinine Clear Calc Drug Dose 112.0 ml/min Estimated GFR () 123.4 Estimated GFR (Non- 106.5 BUN/Creatinine Ratio 4.5 Random Glucose 104 mg/dl Calcium Level 8.7 mg/dl Phosphorus Level 3.4 mg/dl Magnesium Level 2.1 mg/dl Assessment & Plan 40 year old male with history of Crohn's Disease on Methotrexate, s/p Ileal Resection with Ileocolic Anastomosis 2014 in [facility], Perianal Abscess s/p Drainage March 2016, presenting with abdominal pain, vomiting and fever since last night. CROHN'S DISEASE FLARE UP - presented with abdominal pain, nausea/vomiting CT abdomen: IMPRESSION: 1. Right lower lobe perihilar airspace consolidation consistent with pneumonia. Imaging subsequent to treatment is recommended in follow-up 2. Postsurgical changes of the distal ileal resection with ileocolonic anastomosis 3. Distal ileal bowel wall thickening with infiltration of the surrounding fat. The findings are consistent with active Crohn's disease 4. Infiltration the fat in the left gluteal fold. There is a 17 mm left medial gluteal fold abscess. 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 5. Central mesenteric lymphadenopathy, likely reactive. - held Methotrexate Prednisone 40mg po one dose given - consulted GI- Dr. Hoyt covering for Dr. Conde no further steroids per GI - changed Zosyn IV (given for 3 days) to Levaquin + Flagyl (given for 2 days) - clinically improved diet advanced, tolerated - GI recommendations per LIGIA Jones: Levaquin + Flagyl x 5 more days resume usual Methotrexate and Budesonide GI clinic will call patient for follow up, they are arranging for patient to be evaluated in [facility] LEFT BUTTOCK ABSCESS, POSSIBLE PERIANAL FISTULA - CT abdomen/Pelvis: Infiltration the fat in the left gluteal fold. There is a 17 mm left medial gluteal fold abscess. 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 - wound culture: coag neg staph MRSA nasal swab: negative - changed Zosyn IV (given for 3 days) to Levaquin + Flagyl (given for 2 days) - improved appearance of left buttock lesion - General Surgeon Dr. Soriano consulted no surgical intervention at this time - continue outpatient ff up continue antibiotics as noted above monitor closely POSSIBLE RIGHT LOWER LOBE PNEUMONIA - likely from Aspiration during vomiting episodes - CT abdomen/pelvis: Right lower lobe perihilar airspace consolidation consistent with pneumonia. - sputum culture: normal florentin - wheezing improving - antibiotics as noted above PRN Albuterol - repeat chest xray on ff up with PCP monitor closely POSSIBLE SEPSIS FROM ABOVE CONDITIONS - fever and leukocytosis resolved - clinically improved overall - given IV fluids DISPOSITION d/c home ff up with PCP tomorrow as scheduled then regularly ff up with GI as scheduled Current Inpatient Medications: Current Inpatient Medications Medications (Trade) Dose Ordered Sig/Alo Route Start Time Stop Time Status Last Admin Dose Admin Ioversol (Optiray 320) 100 ml UD PRN IV 10/01/16 13:30 10/05/16 13:29 Acetaminophen (Tylenol Tab) 650 mg Q4H PRN PO 10/01/16 18:00 10/31/16 17:59 Potassium Chloride/Dextrose/ Sod Cl 1,000 ml @ 75 mls/hr [id number] IV 10/01/16 21:00 10/31/16 20:59 10/04/16 06:15 75 MLS/HR Hydromorphone HCl (Dilaudid Inj) 2 mg Q3H PRN IV 10/01/16 20:45 10/15/16 20:44 10/04/16 15:49 2 MG Ondansetron HCl (Zofran Inj) 4 mg Q6H PRN IV 10/01/16 20:45 10/31/16 20:44 10/04/16 12:31 4 MG Ipratropium [place] (Atrovent 0.02% 0.5MG/2.5ML Neb) 0.5 mg Q6R INH 10/01/16 21:00 10/31/16 20:59 10/04/16 13:37 0.5 MG Levalbuterol (Xopenex 1.25MG/ 0.5ML Neb) 1.25 mg Q6R INH 10/01/16 21:00 10/31/16 20:59 10/04/16 13:37 1.25 MG Levofloxacin 500 mg/Prmx 100 ml @ 100 mls/hr Q24H IV 10/03/16 11:00 10/13/16 10:59 10/04/16 11:23 100 MLS/HR Metronidazole 500 mg/Prmx 100 ml @ 100 mls/hr Q8H IV 10/03/16 12:00 10/13/16 11:59 10/04/16 13:31 100 MLS/HR Acyclovir (Zovirax 5% Oint) 1 appln QID EXT 10/03/16 16:00 10/13/16 15:59 10/04/16 11:23 1 APPLN
[2016-10-04] MEDS ORDERED: VNTHFA/IN INH (17:10)
[2016-10-04] MEDS ORDERED: ONDA4TAB65 PO (17:10)
[2016-10-04] MEDS ORDERED: MTR500 PO (17:10)
[2016-10-04] MEDS ORDERED: LEVO1TAB34 PO (17:10)
--- NOTE | 2016-10-04 17:18 | Discharge Instructions ---
Discharge Instructions Date of Service Oct 04, 2016. Admission Reason for Admission: Exacerbation Of Chrons Disease Discharge Discharge Diagnosis / Problem: Crohn's Disease Flare Up, Pneumonia, Buttock Abscess/Fistula Discharge Goals Goal(s): Diagnostic testing, Therapeutic intervention Activity Recommendations Activity Limitations: as noted below (no heavy exertion until re-evaluated by Primary Care Physician) Lifting Limitations: until after follow-up appointment Exercise/Sports Limitations: until after follow-up appointment . Instructions / Follow-Up Instructions / Follow-Up PLEASE REVIEW YOUR NEW MEDICATION LIST AND FOLLOW INSTRUCTIONS CAREFULLY. CALL PRIMARY CARE PHYSICIAN OR RETURN TO ER IMMEDIATELY IF WITH RECURRENCE OF SYMPTOMS, FEVER/CHILLS, INCREASING COUGH, SHORTNESS OF BREATH. ENSURE ADEQUATE DAILY FLUID INTAKE. ADVANCE DIET TOLERATED. FOLLOW UP WITH DR. CUI TOMORROW SCHEDULED. FOLLOW UP WITH GI CLINIC SCHEDULED. Current Hospital Diet Patient's current hospital diet: Full Liquid Diet Discharge Diet Recommended Diet: Regular Diet (SOFT DIET) Pending Studies Studies pending at discharge: yes List of pending studies: CHEST XRAY ON FOLLOW UP WITH PRIMARY CARE PHYSICIAN Medical Emergencies . Who to Call and When: Medical Emergencies: If at any time you feel your situation is an emergency, please call 911 immediately. . Non-Emergent Contact Non-Emergency issues call your: Primary Care Provider Call Non-Emergent contact if: you have a fever, your pain is not controlled, your pain is worsening, wound has increased drainage, wound has increased redness, wound has increased pain, you have any medication questions . . "Provider Documentation" section prepared by Kayden Petersen. . VTE Core Measure Inpt VTE Proph given/why not?: SCD's [place] Drug Monitoring Program Search Results: patient reviewed within database
--- NOTE | 2016-10-04 17:21 | Discharge Summary ---
Discharge Summary Date of Service Oct 04, 2016. Discharge Summary Admission Date: Oct 01, 2016 at 17:56 Discharge Date: Oct 04, 2016 Discharge Disposition: Home Principal Diagnosis: CROHN'S DISEASE FLARE UP Secondary Diagnoses/Problems: Please refer to hospital course below. Procedures: CT ABD/PELVIS IV CONTRAST ONLY CLINICAL HISTORY: Abdominal pain. Crohn's disease. Possible fistula. COMPARISON STUDY: 07/13/2015 TECHNIQUE: Following the IV administration of 116 mL of Optiray-320, CT scan of the abdomen and pelvis was performed from the lung bases to the proximal femurs. Images are reviewed in the axial, sagittal, and coronal planes. IV contrast was administered without complication. CT DOSE: 377.39 mGy.cm FINDINGS: Lower chest: There are right infrahilar airspace opacities suspicious for pneumonia. Imaging subsequent to treatment is recommended in follow-up. Liver: The contrast-enhanced liver is normal in size, contour, and attenuation. There is no intrahepatic biliary ductal dilatation. The hepatic veins and portal veins are patent. Gallbladder: Unremarkable. Spleen: Normal in size and attenuation. Pancreas: Unremarkable. Adrenal glands: Unremarkable. Kidneys: There is symmetric renal cortical enhancement. The kidneys are normal in size without hydronephrosis. Bowel: Bowel evaluation is significantly limited as no oral contrast was administered. There are postsurgical changes of a prior distal ileal resection with ileocolonic anastomosis. There is distal ileal bowel wall thickening with infiltration of the adjacent fat, consistent with active Crohn's disease. There are no transition zones to indicate bowel obstruction. There is infiltration of the soft tissues within the left gluteal fold. There is a suspected left-sided perianal fistula. There is a tiny fluid collection within the left medial gluteal fold consistent with a small abscess. This measures approximately 17 mm in diameter. Peritoneum: There is no intraperitoneal free air or abdominal ascites. Vasculature: The abdominal aorta is normal in course and caliber. Adenopathy: There are enlarged central mesenteric lymph nodes, likely reactive. Pelvic viscera: The bladder, and pelvic viscera are unremarkable. Skeletal structures: No destructive osseous lesions are seen. IMPRESSION: 1. Right lower lobe perihilar airspace consolidation consistent with pneumonia. Imaging subsequent to treatment is recommended in follow-up 2. Postsurgical changes of the distal ileal resection with ileocolonic anastomosis 3. Distal ileal bowel wall thickening with infiltration of the surrounding fat. The findings are consistent with active Crohn's disease 4. Infiltration the fat in the left gluteal fold. There is a 17 mm left medial gluteal fold abscess. 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 5. Central mesenteric lymphadenopathy, likely reactive. Electronically signed by: Lalo Aguilar M.D. 10/01/2016 4:28 PM Consultations: Gastroenterology: Dr. oHyt (covering for Dr. Conde); LIGIA Jones Pending Studies/Follow-Up: Chest xray on follow up with Primary Care Physician; Please refer to hospital course below for further details. Medication Reconciliation New Medications: Albuterol Hfa (Ventolin Hfa) 200 Puffs/56176 Mcg Aers 2 PUFFS INH Q4H PRN for SOB/Wheezing, #1 INHALER 1 Refill Levofloxacin (Levaquin) 500 Mg Tab 500 MG PO DAILY for 5 Days, #5 TAB 0 Refills Metronidazole (Metronidazole) 500 Mg Tab 1 TAB PO TID for 5 Days, #15 TABS 0 Refills Changed Medications: Ondansetron Hcl (Zofran) 4 Mg Tab 4 MG PO Q6H PRN for Nausea for 10 Days (Changed from: PRN) Continued Medications: Budesonide (Budesonide) 3 Mg Cap 3 TAB PO DAILY Ergocalciferol (Vitamin D Cap) 50,000 Interunit Cap 77790 INTER.UNIT PO WK, CAP Folic Acid (Folvite) 1 Mg Tab 1 MG PO 6XWK, TAB Methotrexate (Methotrexate) 2.5 Mg Tab 6 TAB PO DAILY, TAB TAKES ON MONDAYS Oxycodone/Acetaminophen 10MG/325MG (Oxycodone/Acetaminophen 10MG/325MG) 1 Tab Tab 1 TAB PO Q4H PRN for Pain, TAB Prochlorperazine Maleate (Compazine) 10 Mg Tab 10 MG PO Q6H PRN for Nausea, TAB Admission Information HPI (per Admitting provider): 40 year old male with history of Crohn's Disease on Methotrexate, s/p Ileal Resection with Ileocolic Anastomosis 2014 in [facility], Perianal Abscess s/p Drainage March 2016, presenting with abdominal pain, vomiting and fever since last night. Patient follows with Dr. Conde for GI, Dr. Cui for PCP. Doing ok until last night when he started to have nausea/vomiting, RLQ abdominal pain, fever/chills. Last BM was this morning, loose brown, non bloody. (Patient reports he always have loose BMs). Was seen at another ER and sent to [facility]. At [facility] ER, patient was febrile, tachycardic, with elevated WBC. CT scan showed: 1. Right lower lobe perihilar airspace consolidation consistent with pneumonia. Imaging subsequent to treatment is recommended in follow-up 2. Postsurgical changes of the distal ileal resection with ileocolonic anastomosis 3. Distal ileal bowel wall thickening with infiltration of the surrounding fat. The findings are consistent with active Crohn's disease 4. Infiltration the fat in the left gluteal fold. There is a 17 mm left medial gluteal fold abscess. 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 5. Central mesenteric lymphadenopathy, likely reactive. Given IV fluids, Zosyn, Dilaudid. call center analyst GI MD called by Dr. Francisco, advised antibiotics. On exam, patient resting in bed, alert, oriented, reports persistent RLQ pain, shortly relieved by current analgesic regimen. Denies nausea. Has dry cough, occasional wheezing, no shortness of breath. States he has some increased drainage and tenderness from the left buttock abscess. No other symptoms. Physical Exam (per Admitting): General Appearance: WD/WN, no apparent distress Head: normocephalic, atraumatic Eyes: normal inspection, EOMI, sclerae normal ENT: normal ENT inspection, hearing grossly normal, pharynx normal Neck: supple, no adenopathy, thyroid normal, no JVD, trachea midline Respiratory/Chest: no respiratory distress, no accessory muscle use, + wheezing Cardiovascular: regular rate, rhythm, no edema, no JVD, no murmur, normal peripheral pulses Abdomen/GI: normal bowel sounds, soft, + pertinent finding Back: normal inspection, no CVA tenderness Extremities/Musculoskelatal: no calf tenderness, normal capillary refill, no pedal edema, + pertinent finding Neurologic/Psych: cadd operator II-XII nml as tested, no motor/sensory deficits, alert , normal mood/affect, normal reflexes, oriented x 3 Skin: normal color, warm/dry, no rash Lymphatic: no adenopathy Hospital Course 40 year old male with history of Crohn's Disease on Methotrexate, s/p Ileal Resection with Ileocolic Anastomosis 2014 in [facility], Perianal Abscess s/p Drainage March 2016, presenting with abdominal pain, vomiting and fever since last night. CROHN'S DISEASE FLARE UP - presented with abdominal pain, nausea/vomiting CT abdomen: IMPRESSION: 1. Right lower lobe perihilar airspace consolidation consistent with pneumonia. Imaging subsequent to treatment is recommended in follow-up 2. Postsurgical changes of the distal ileal resection with ileocolonic anastomosis 3. Distal ileal bowel wall thickening with infiltration of the surrounding fat. The findings are consistent with active Crohn's disease 4. Infiltration the fat in the left gluteal fold. There is a 17 mm left medial gluteal fold abscess. 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 5. Central mesenteric lymphadenopathy, likely reactive. - held Methotrexate Prednisone 40mg po one dose given - consulted GI- Dr. Hoyt covering for Case no further steroids per GI - changed Zosyn IV (given for 3 days) to Levaquin + Flagyl (given for 2 days) - clinically improved diet advanced, tolerated - GI recommendations per LIGIA Jones: Levaquin + Flagyl x 5 more days resume usual Methotrexate and Budesonide GI clinic will call patient for follow up, they are arranging for patient to be evaluated in [facility] LEFT BUTTOCK ABSCESS, POSSIBLE PERIANAL FISTULA - CT abdomen/Pelvis: Infiltration the fat in the left gluteal fold. There is a 17 mm left medial gluteal fold abscess. 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 - wound culture: coag neg staph MRSA nasal swab: negative - changed Zosyn IV (given for 3 days) to Levaquin + Flagyl (given for 2 days) - improved appearance of left buttock lesion - General Surgeon Dr. Soriano consulted no surgical intervention at this time - continue outpatient ff up continue antibiotics as noted above monitor closely POSSIBLE RIGHT LOWER LOBE PNEUMONIA - likely from Aspiration during vomiting episodes - CT abdomen/pelvis: Right lower lobe perihilar airspace consolidation consistent with pneumonia. - sputum culture: normal florentin - wheezing improving - antibiotics as noted above PRN Albuterol - repeat chest xray on ff up with PCP monitor closely POSSIBLE SEPSIS FROM ABOVE CONDITIONS - fever and leukocytosis resolved - clinically improved overall - given IV fluids DISPOSITION d/c home ff up with PCP tomorrow as scheduled then regularly ff up with GI as scheduled Total time spent on discharge = 45 minutes This includes examination of the patient, discharge planning, medication reconciliation, and communication with other providers. Discharge Instructions Discharge Instructions Date of Service Oct 04, 2016. Admission Reason for Admission: Exacerbation Of Chrons Disease Discharge Discharge Diagnosis / Problem: Crohn's Disease Flare Up, Pneumonia, Buttock Abscess/Fistula Discharge Goals Goal(s): Diagnostic testing, Therapeutic intervention Activity Recommendations Activity Limitations: as noted below (no heavy exertion until re-evaluated by Primary Care Physician) Lifting Limitations: until after follow-up appointment Exercise/Sports Limitations: until after follow-up appointment . Instructions / Follow-Up Instructions / Follow-Up PLEASE REVIEW YOUR NEW MEDICATION LIST AND FOLLOW INSTRUCTIONS CAREFULLY. CALL PRIMARY CARE PHYSICIAN OR RETURN TO ER IMMEDIATELY IF WITH RECURRENCE OF SYMPTOMS, FEVER/CHILLS, INCREASING COUGH, SHORTNESS OF BREATH. ENSURE ADEQUATE DAILY FLUID INTAKE. ADVANCE DIET TOLERATED. FOLLOW UP WITH DR. CUI TOMORROW SCHEDULED. FOLLOW UP WITH GI CLINIC SCHEDULED. Current Hospital Diet Patient's current hospital diet: Full Liquid Diet Discharge Diet Recommended Diet: Regular Diet (SOFT DIET) Pending Studies Studies pending at discharge: yes List of pending studies: CHEST XRAY ON FOLLOW UP WITH PRIMARY CARE PHYSICIAN Medical Emergencies . Who to Call and When: Medical Emergencies: If at any time you feel your situation is an emergency, please call 911 immediately. . Non-Emergent Contact Non-Emergency issues call your: Primary Care Provider Call Non-Emergent contact if: you have a fever, your pain is not controlled, your pain is worsening, wound has increased drainage, wound has increased redness, wound has increased pain, you have any medication questions . . "Provider Documentation" section prepared by Kayden Petersen. . VTE Core Measure Inpt VTE Proph given/why not?: SCD's [place] Drug Monitoring Program Search Results: patient reviewed within database
[2016-10-04] MEDS ORDERED: METRONIDAZOLE 500 MG TAB PO SCH ×2 (17:30→20:00)
[2016-10-04] MEDS ORDERED: LEVOFLOXACIN 500 MG TAB PO SCH (17:30)
[2016-10-04 17:51] VITALS: BP 114/70; PULSE 78; TEMP 36.8; O2SAT 99
[2016-10-05] MEDS ORDERED: LEVOFLOXACIN 500 MG TAB PO SCH (11:00)
[2016-11-09] MEDS ORDERED: METR-163 PO (10:56)
[2016-11-09] MEDS ORDERED: OXYC1TAB3 PO (10:56)
[2016-11-09] MEDS ORDERED: ONDA8TAB6 PO (10:56)
[2016-11-09] MEDS ORDERED: OXYC15TA49 PO (10:56)
[2017-02-20] MEDS ORDERED: ERGO500037 PO (15:41)
[2017-02-20] MEDS ORDERED: PRED10TA PO (17:29)
== END 2016-10-04 18:10 | disposition home or self-care (01) | DRG 871 ==
LOC: EDBD 13:03 → C.EDA 13:06 → C.MS4W 17:56 → ENRESERV 18:30
PROVIDERS: ADMIT Internal Medicine; ATTEND Internal Medicine
DX: A41.9 Sepsis, unspecified organism (principal); J69.0 Pneumonitis due to inhalation of food and vomit; K50.90 Crohn's disease, unspecified, without complications; L02.31 Cutaneous abscess of buttock; K60.3 Anal fistula; Z87.891 Personal history of nicotine dependence; Z90.49 Acquired absence of other specified parts of digestive tract; Z79.899 Other long term (current) drug therapy; Z79.891 Long term (current) use of opiate analgesic; Z79.52 Long term (current) use of systemic steroids

== ENCOUNTER → 2016-11-23 | Day surgery (SDC) | payer OTHER ==
[2016-11-09 11:00] VITALS: Ht 177.8 cm; Wt 72.7 kg
[~2016-11-23] VITALS: Ht 177.8 cm; Wt 72.7 kg
[~2016-11-23] MED LIST changes: +LIDOCAINE HCL 2% 2 ML VIAL (20MG/ML) ONE; -ONDA4TAB65 PO; +ONDA8TAB6 PO; -OXYC-88 PO; +OXYC15TA49 PO; +OXYC1TAB3 PO; -PROC1TAB5 PO; +PROPOFOL IV EMULSION 10 MG/ML 20 ML VIAL IV ONE
--- NOTE | 2016-11-23 10:57 | Endo History and Physical ---
History & Physical Date of Service: Nov 23, 2016. Chief Complaint: Crohn's Referring Physician: Dr. Arnulfo Arreaga History of Present Illness 41 yo CM who presents for colonoscopy secondary to Crohn's Disease. Past Medical History Gastrointestinal Disorder, Other Past Surgical History Hx Cardiac Surgery: No Hx Internal Defibrillator: No Hx Pacemaker: No Hx Abdominal Surgery: Yes (COLON RESECTION X2, APPY, ILEECTOMY) Hx of Implantable Prosthesis: No Hx Post-Op Nausea and Vomiting: No Hx Cancer Surgery: No Hx Thoracic Surgery: No Hx Orthopedic: No Hx Urinary Tract Surgery: Yes (VASECTOMY) Family History IBD Social History Smoking Status: Former Smoker Hx Substance Use: No Hx Alcohol Use: No Allergies Coded Allergies: Vedolizumab (Verified Allergy, Severe, LEG SWOLLEN, 11/09/16) Azathioprine (Verified Allergy, Unknown, JOINTS SWELLING, 11/09/16) Infliximab (Verified Adverse Reaction, Unknown, "remicade stopped working for me", 11/09/16) Morphine (Verified Adverse Reaction, Unknown, "does not work for me;only dilaudid", 11/09/16) Uncoded Allergies: ENTIVIO (Allergy, Unknown, knees swell,can't walk, 11/23/16) Current Medications Reported Home Medications Medications Dose Route/Sig Max Daily Dose Days Date Category Dose Instructions Zofran (Ondansetron HCl) 8 Mg Tab 8 Mg PO Q6H PRN 11/09/16 Reported Roxicodone Ir (Oxycodone HCl) 5 Mg Tab 5 Mg PO Q4H PRN 11/09/16 Reported Roxicodone (Oxycodone Hcl) 15 Mg Tab 15 Mg PO QID PRN 11/09/16 Reported Flagyl (Metronidazole) 500 Mg Tab 500 Mg PO TID 11/09/16 Reported Methotrexate 2.5 Mg Tab 6 Tab PO DAILY 07/16/16 Reported TAKES ON MONDAYS Folvite (Folic Acid) 1 Mg Tab 1 Mg PO 6XWK 07/16/16 Reported Budesonide 3 Mg Cap 3 Tab PO DAILY PRN 07/16/16 Reported Vitamin D Cap (Ergocalciferol) 50,000 Interunit Cap 50,000 Inter.unit PO WK 07/30/15 Reported Vital Signs Weight (Kilograms): 72.73 Height (Feet): 5 Height (Inches): 10 Date Time Temp Pulse Resp B/P (MAP) Pulse Ox O2 Delivery O2 Flow Rate FiO2 11/23/16 10:29 36.7 60 18 119/72 (88) 99 Room Air Physical Exam General Appearance: WD/WN, no apparent distress Respiratory/Chest: Auscultation: breath sounds normal Cardiovascular: Heart Auscultation: RRR Abdomen: Bowel Sounds: normal Inspection & Palpation: soft, non-distended, no tenderness, guarding & rebound Assessment and Plan Assessment: 41 yo CM who presents for colonoscopy secondary to Crohn's Disease. Plan: Proceed with colonoscopy.
--- NOTE | 2016-11-23 11:28 | Anesthesiology Progress Note ---
Anesthesia Post Op Note Date & Time Nov 23, 2016 at 11:28 Vital Signs Pain Intensity: 5 Vital Signs Past 12 Hours Date Time Temp Pulse Resp B/P (MAP) Pulse Ox O2 Delivery O2 Flow Rate FiO2 11/23/16 11:19 57 16 101/59 (73) 99 Room Air 11/23/16 10:29 36.7 60 18 119/72 (88) 99 Room Air Notes Mental Status: alert / awake / arousable, participated in evaluation Pt Amnestic to Procedure: Yes Nausea / Vomiting: adequately controlled Pain: adequately controlled Airway Patency, RR, SpO2: stable & adequate BP & HR: stable & adequate Hydration State: stable & adequate Anesthetic Complications: no major complications apparent
--- NOTE | 2016-11-23 11:29 | GI REPORT ---
Procedure Date: 11/23/2016 10:49 AM Procedure: Colonoscopy Indications: Disease activity assessment of Crohn's disease of the small bowel Medicines: Monitored Anesthesia Care Complications: No immediate complications. Estimated Blood Loss: Estimated blood loss: none. Procedure: Pre-Anesthesia Assessment: - Prior to the procedure, a History and Physical was performed, and patient medications and allergies were reviewed. The patient's tolerance of previous anesthesia was also reviewed. The risks and benefits of the procedure and the sedation options and risks were discussed with the patient. All questions were answered, and informed consent was obtained. Prior Anticoagulants: The patient has taken no previous anticoagulant or antiplatelet agents. ASA Grade Assessment: II - A patient with mild systemic disease. After reviewing the risks and benefits, the patient was deemed in satisfactory condition to undergo the procedure. After I obtained informed consent, the scope was passed under direct vision. Throughout the procedure, the patient's blood pressure, pulse, and oxygen saturations were monitored continuously. The scope was introduced through the anus and advanced to the terminal ileum. The colonoscopy was performed without difficulty. The patient tolerated the procedure well. The quality of the bowel preparation was poor. The terminal ileum and the rectum were photographed. Findings: There was evidence of a patent end-to-side ileo-colonic anastomosis found in the natalia-terminal Ileum. This was characterized by multiple ulcerations with moderate to severe Crohn's disease activity. This was traversed. This was biopsied with a cold forceps for histology. Copious quantities of semi-liquid stool was found in the entire colon, interfering with visualization. Lavage of the area was performed using a large amount of normal saline, resulting in incomplete clearance with fair visualization. Several random biopsies were obtained with cold forceps for histology in the entire colon. Impression: - Preparation of the colon was poor. - Patent end-to-side ileo-colonic anastomosis, characterized by ulceration. Biopsied. - Stool in the entire examined colon. - Several random biopsies were obtained in the entire colon. Recommendation: - Resume previous diet. - Continue present medications. - Recommend initiation of Stelarra therapy - Repeat colonoscopy for surveillance based on pathology results. - Return to primary care physician as previously scheduled. Jerad Conde DO 11/23/2016 11:28:49 AM This report has been signed electronically. Note Initiated On: 11/23/2016 10:49 AM I attest to the content of the Intraoperative Record and orders documented therein, exceptions below
--- NOTE | 2016-11-23 11:29 | Discharge Instructions ---
Endoscopy Patient Instructions Date / Procedure(s) Performed Nov 23, 2016. Colonoscopy Allergy Information Coded Allergies: Vedolizumab (Verified Allergy, Severe, LEG SWOLLEN, 11/09/16) Azathioprine (Verified Allergy, Unknown, JOINTS SWELLING, 11/09/16) Infliximab (Verified Adverse Reaction, Unknown, "remicade stopped working for me", 11/09/16) Morphine (Verified Adverse Reaction, Unknown, "does not work for me;only dilaudid", 11/09/16) Uncoded Allergies: ENTIVIO (Allergy, Unknown, knees swell,can't walk, 11/23/16) Discharge Date / Findings Nov 23, 2016. Crohn's Ileitis s/p biopsies Random colon biopsies Poor bowel prep Medication Instructions OK to resume all medications today as prescribed Reported Home Medications Medications Dose Route/Sig Max Daily Dose Days Date Category Dose Instructions Zofran (Ondansetron HCl) 8 Mg Tab 8 Mg PO Q6H PRN 11/09/16 Reported Roxicodone Ir (Oxycodone HCl) 5 Mg Tab 5 Mg PO Q4H PRN 11/09/16 Reported Roxicodone (Oxycodone Hcl) 15 Mg Tab 15 Mg PO QID PRN 11/09/16 Reported Flagyl (Metronidazole) 500 Mg Tab 500 Mg PO TID 11/09/16 Reported Methotrexate 2.5 Mg Tab 6 Tab PO DAILY 07/16/16 Reported TAKES ON MONDAYS Folvite (Folic Acid) 1 Mg Tab 1 Mg PO 6XWK 07/16/16 Reported Budesonide 3 Mg Cap 3 Tab PO DAILY PRN 07/16/16 Reported Vitamin D Cap (Ergocalciferol) 50,000 Interunit Cap 50,000 Inter.unit PO WK 07/30/15 Reported Provider Instructions Activity Restrictions - No exercising or heavy lifting for 24 hours. - Do not drink alcohol the day of the procedure. - Do not drive a car or operate machinery until the day after the procedure. - Do not make any important decisions or sign important papers in 24 hours after the procedure. Following Day: - Return to full activity which may include returning to work/school. Diet Start your diet with liquids and light foods (jello, soup, juice, toast). Then eat your usual diet if not nauseated. Treatment For Common After Affects For mild abdominal pain, bloating, or excessive gas: - Rest - Eat lightly - Lie on right side Follow-Up Information Follow-up with Dr. Arnulfo Arreaga as scheduled Anesthesia Information What You Should Know You have had a procedure that required some medicine to reduce anxiety and discomfort. This treatment is called moderate sedation. After receiving the treatment, you may be sleepy, but you will be able to breathe on your own. The effects of the treatment may last for several hours. Follow these instructions along with Activity/Diet recommendations noted above: * Do NOT do anything where dizziness or clumsiness would be dangerous. * Rest quietly at home today, then you can be up and about tomorrow. * Have a responsible person stay with you the rest of today. * You may have had an I.V. today. If so, you may take the dressing off later today. Recommendations Call your doctor if: * Trouble breathing * Continuous vomiting for more than 24 hours * Temperature above 101 degrees * Severe abdominal pain or bloating * Pain not relieved by pain medicine ordered * There is increased drainage or redness from any incision * A large amount of rectal bleeding greater than 2-3 tablespoons. (If you had a polyp/s removed or have hemorrhoids, a small amount of blood - from the rectum is to be expected.) * You have any unanswered questions or concerns. IN THE EVENT OF A SERIOUS EMERGENCY, GO TO THE NEAREST EMERGENCY ROOM Your discharge instructions were prepared by provider Jerad Conde. Patient Instructions Signature Page Param Melissa Patient (or Guardian) Signature/Date: I have read and understand the instructions given to me by my caregivers. Caregiver/RN/Doctor Signature/Date: The above-named patient and/or guardian has received patient instructions on this date. + Original Patient Signature Page (only) stays with chart. Please make copy for patient.
[2016-11-23 11:54] VITALS: BP 119/82; PULSE 48; O2SAT 100
== END | disposition home or self-care (01) ==
LOC: C.GI 10:08
PROVIDERS: ATTEND Internal Medicine
DX: K50.90 Crohn's disease, unspecified, without complications (principal); K52.9 Noninfective gastroenteritis and colitis, unspecified; Z90.49 Acquired absence of other specified parts of digestive tract; Z87.891 Personal history of nicotine dependence

== ENCOUNTER → 2017-02-07 | Outpatient (CLI) | payer OTHER ==
[~2017-02-07] MED LIST changes: -LIDOCAINE HCL 2% 2 ML VIAL (20MG/ML) ONE; -PROPOFOL IV EMULSION 10 MG/ML 20 ML VIAL IV ONE
[2017-02-09 14:32] LABS: QUANTIF TB AG-NIL <0.00 IU/ML; QUANTIFERON NIL 1.97 IU/ML
== END | disposition home or self-care (01) ==
LOC: C.LABSPEC 12:27
PROVIDERS: ATTEND Internal Medicine Gastroenterology
DX: K50.00 Crohn's disease of small intestine without complications (principal); K50.10 Crohn's disease of large intestine without complications

== ENCOUNTER 2017-04-04 18:30 | Inpatient (IN) | payer OTHER ==
[~2017-04-04] VITALS: Ht 180.3 cm; Wt 72.7 kg
[~2017-04-04 18:30] MED LIST changes: -BUDE0.09 PO; -ERGO1CAP35 PO; +ERGO500037 PO; -FOLI1TAB7 PO; +FOLI1TAB8 PO; -METR-163 PO; +PRED10TA PO
[2017-04-04 20:15] VITALS: BP 128/78; PULSE 67; TEMP 37; O2SAT 98
[2017-04-04 21:45] VITALS: BP 128/78; PULSE 67; TEMP 37; O2SAT 98; Ht 180.3 cm; Wt 72.7 kg
[2017-04-04] MEDS ORDERED: ACETAMINOPHEN 325 MG TAB PO PRN (22:15)
[2017-04-04] MEDS ORDERED: POLYETHYLENE (MIRALAX) 17 GM PACK PO PRN (22:15)
[2017-04-04] MEDS ORDERED: ONDANSETRON 8 MG TAB PO PRN (22:15)
[2017-04-04] MEDS ORDERED: MAGNESIUM HYDROXIDE SUSP 30 ML UDC PO PRN (22:15)
[2017-04-04] MEDS ORDERED: ALUMINUM/MAGNESIUM/SIMETH (MAALOX MAX) 30 ML UDC PO PRN (22:15)
[2017-04-04] MEDS ORDERED: PIPERACILL/TAZOBAC IV 3.375 GM in DEXTROSE 5% 100ML 100 ML IV SCH (22:30)
[2017-04-04] MEDS: HYDROmorphone INJ 1 MG/ML SYR IV PRN (22:33)
--- NOTE | 2017-04-04 22:34 | DIAGNOSTIC IMAGING REPORT ---
KUB CLINICAL HISTORY: Generalized abdominal pain. FINDINGS: 2 AP supine abdominal radiographs are correlated with abdominal CT dated 10/01/2016. There is no radiographic evidence of bowel obstruction. There are mildly distended and gas-filled loops of small bowel. No evidence of intraperitoneal free air is seen on these supine views. There are no abnormal abdominal calcifications. The bony structures appear intact. A bone island is incidentally noted in the left femoral head. IMPRESSION: 1. There is no radiographic evidence of high-grade bowel obstruction. 2. There is mild gaseous distention of the small bowel loops. This is nonspecific and may correspond to a nonspecific enteritis. Clinical correlation will be required. Electronically signed by: Royce Blackwood M.D. 04/04/2017 10:33 PM Dictated Date/Time: 04/04/2017 10:32 PM
[2017-04-04 22:45] LABS: BASO % 0.2 %; BASO ABS # 0.02 K/uL (0-0.2); COMPLETE YES; EOS % 1.1 %; HEMATOCRIT 36.3 % (42-52); IG% 0.2 %; LYMPH % 18.5 %; LYMPH ABS # 1.97 K/uL (1.2-3.4); MEAN CELL VOLUME 78.6 fL (80-100); MEAN CORPUSCULAR HEMOGLOBIN 26.4 pg (25-34); MEAN CORPUSCULAR HGB CONC 33.6 g/dl (32-36); MEAN PLATELET VOLUME 9.8 fL (7.4-10.4); MONO % 8.4 %; NEUT % 71.6 %; PLATELET COUNT 203 K/uL (130-400); RED BLOOD COUNT 4.62 M/uL (4.7-6.1); WHITE BLOOD COUNT 10.65 K/uL (4.8-10.8)
[2017-04-04] MEDS ORDERED: PATIENT'S HEIGHT AND/OR WEIGHT NEEDED SCH (22:45)
[2017-04-04 22:57] LABS: PARTIAL THROMBOPLASTIN RATIO 1.2
[2017-04-04] MEDS ORDERED: PIPERACILL/TAZOBAC CONSULT ACTIVE PRN (23:00)
[2017-04-04 23:03] LABS: BUN/CREATININE RATIO 7.6 (10-20); CALCIUM 8.7 mg/dl (8.5-10.1); CREATININE 0.87 mg/dl (0.60-1.40); POTASSIUM 3.3 mmol/L (3.5-5.1)
[2017-04-04 23:06] LABS: ALB/GLOB RATIO 0.9 (0.9-2)
[2017-04-04] MEDS ORDERED: POTASSIUM CHLORIDE 20 MEQ TABCR PO STA (23:15)
--- NOTE | 2017-04-04 23:15 | History and Physical ---
History & Physical Date & Time of Service: Apr 04, 2017 at 22:19 Chief Complaint: Inflamatory Bowel Disease, Dehydration Primary Care Physician: Arnulfo Arreaga D.O. History of Present Illness Source: patient, hospital records This is a 41 yo m with a h/o chronic RLQ pain secondary to crohn's disease that is presenting to us with an acute exacerbation of Crohn's. Patient is a transfer from [place]. The patient states that he normally has RLQ pain that extends to the right pelvis however in the past 24 hours he developed bloody diarrhea and sudden worsening of his pain. It is currently a 02/01. He typically controls it using Oxycodone and use Stelara for maintenance of the Crohn's disease. He has used steroids in the past for exacerbations and he typically follows with Dr Veliz. Last documented exacerbation was in Sep 2016 here. patient states that his bloody stools has resolved but continues to have diarrhea. Currently denies any N&V, fever, chest pain, rash or SOB. Labs reviewed at [place] reflected a leukocytosis with an elevated PT/PTT but normal INR PDMP was reviewed and rx reflective of patient's chronic oxycodone use Past Medical/Surgical History Medical Problems: (1) Crohn's disease Status: Chronic (2) Knee effusion, right Status: Resolved (3) Knee pain Status: Resolved (4) Knee swelling Status: Resolved Surgical Problems: (1) H/O resection of small bowel Status: Resolved (2) Hx of appendectomy Status: Resolved Family History FH: Crohn's disease cousin cousin FH: suicide MOTHER Social History Smoking Status: Never Smoker Smokeless Tobacco Use: No Alcohol Use: none Drug Use: none Marital Status: single Housing status: lives alone Occupational Status: unemployed, disabled Immunizations History of Influenza Vaccine: Unknown History of Tetanus Vaccine?: Unknown History of Pneumococcal: Unknown History of Hepatitis B Vaccine: Unknown Multi-Drug Resistant Organisms History of MDRO: No Allergies Coded Allergies: Vedolizumab (Verified Allergy, Severe, LEG SWOLLEN, 02/20/17) Azathioprine (Verified Allergy, Unknown, JOINTS SWELLING, 02/20/17) Infliximab (Verified Adverse Reaction, Unknown, "remicade stopped working for me", 02/20/17) Morphine (Verified Adverse Reaction, Unknown, "does not work for me;only dilaudid", 02/20/17) Home Medications Scheduled Ergocalciferol (Vitamin D 51552 Unit), 50,000 UNIT PO WK Folic Acid (Folvite), 1 MG PO 6XWK Methotrexate (Methotrexate), 6 TAB PO DAILY Prednisone Tab (Prednisone), 20 MG PO DAILY Scheduled PRN Ondansetron Hcl (Zofran), 8 MG PO Q6H PRN for Nausea Oxycodone Hcl (Roxicodone), 15 MG PO QID PRN for Pain Oxycodone Immediate Rel Tab (Roxicodone Ir), 5 MG PO Q4H PRN for Severe Pain Review of Systems Constitutional: No fever Eyes: No worsening of vision ENT: No hearing loss Respiratory: No cough, No sputum, No wheezing, No shortness of breath, No dyspnea on exertion, No dyspnea at rest Cardiovascular: No chest pain Abdomen: + pain, + diarrhea, + GI bleeding, No nausea, No vomiting, No constipation Genitourinary - Male: No hematuria, No dysuria, No urinary frequency Neurologic: No weakness, No numbness/tingling, No balance problems Psychiatric: No depression symptoms Endocrine: No fatigue Hematologic / Lymphatic: No abnormal bleeding/bruising, No night sweats Integumentary: No rash Physical Exam Vital Signs Date Time Temp Pulse Resp B/P (MAP) Pulse Ox O2 Delivery O2 Flow Rate FiO2 04/04/17 21:45 37.0 67 18 128/78 98 Room Air 04/04/17 20:15 37.0 67 18 128/78 (95) 98 Room Air General Appearance: + mild distress Head: normocephalic, atraumatic Eyes: normal inspection ENT: normal ENT inspection Neck: supple Respiratory/Chest: normal breath sounds, no respiratory distress, no accessory muscle use Cardiovascular: regular rate, rhythm, no murmur, normal peripheral pulses Abdomen/GI: normal bowel sounds, + tenderness (rlq without rebound ), + guarding Back: normal inspection, no CVA tenderness, normal range of motion Extremities/Musculoskelatal: normal inspection, no calf tenderness, no pedal edema, normal range of motion Neurologic/Psych: alert, normal mood/affect, oriented x 3 Skin: normal color, warm/dry, no rash Lymphatic: no adenopathy Diagnostics Laboratory Results Results Past 24 Hours Test 04/04/17 22:10 Range/Units Diagnostic Radiology KUB CLINICAL HISTORY: Generalized abdominal pain. FINDINGS: 2 AP supine abdominal radiographs are correlated with abdominal CT dated 10/01/2016. There is no radiographic evidence of bowel obstruction. There are mildly distended and gas-filled loops of small bowel. No evidence of intraperitoneal free air is seen on these supine views. There are no abnormal abdominal calcifications. The bony structures appear intact. A bone island is incidentally noted in the left femoral head. IMPRESSION: 1. There is no radiographic evidence of high-grade bowel obstruction. 2. There is mild gaseous distention of the small bowel loops. This is nonspecific and may correspond to a nonspecific enteritis. Clinical correlation will be required. Impression Assessment and Plan This is a 41 yo m with a h/o Crohn's presenting to us with acute worsening of chronic RLQ pain RLQ pain possibly secondary to Crohn's exacerbation - Med surg admission - consult GI - Advance diet as tolerating starting tomorrow - Oxycodone and Dilaudid for pain control - Methylpred 40 mg bid - KUB - will repeat labs and include lipase and ESR - Zosyn DVT Prophylaxis - will just use SCD now, will repeat PT/PTT prior to initiating heparin for prophylaxis Attending addendum: I have physically seen this patient, have supervised the medical residents activities, and agree with the H&P unless as otherwise noted. Assessment and Plan: Crohn's exacerbation-- Previous admissions from 04/28/15 - 05/03/15, and 10/01/16 - 10/04/16. Admit to medical surgical floor Solu-Medrol 40 mg IV twice a day Zosyn IV Nothing by mouth except medications Continue folic acid. On methotrexate and prednisone as outpatient Stool studies Minimize narcotic medications, continue outpatient dosing of oxycodone Repeat laboratories in the a.m. 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 Veliz Level of Care Med/Surg Advanced Directives Existing Living Will: Yes Existing Power of Economic Specialist: No Resuscitation Status FULL RESUSCITATION VTE Prophylaxis VTE Risk Assessment Done? Y/N: Yes Risk Level: Moderate Given or contraindicated: SCD's Social Service Consult None Apply Additional Copies To Arnulfo Arreaga D.O.
[2017-04-04] MEDS: ONDANSETRON INJ 2 MG/ML 2 ML VIAL IV PRN (23:31)
[2017-04-04] MEDS: OXYCODONE HCL IR 5 MG TAB (IMMEDIATE RELEASE) PO PRN (23:32)
[2017-04-04 23:44] VITALS: BP 127/85; PULSE 65; TEMP 37.1; O2SAT 97
[2017-04-05] VITALS: O2SAT 98
[2017-04-05] MEDS: HYDROmorphone INJ 1 MG/ML SYR IV PRN ×10 (00:36→23:50)
[2017-04-05] MEDS: PIPERACILL/TAZOBAC IV 3.375 GM in DEXTROSE 5% 100ML IV SCH ×3 (04:10→20:40)
[2017-04-05] MEDS: OXYCODONE HCL IR 5 MG TAB (IMMEDIATE RELEASE) PO PRN ×5 (04:12→20:33)
[2017-04-05] MEDS: ONDANSETRON INJ 2 MG/ML 2 ML VIAL IV PRN ×2 (06:37→19:14)
[2017-04-05 07:12] VITALS: BP 119/78; PULSE 64; TEMP 36.7; O2SAT 98
--- NOTE | 2017-04-05 07:15 | Family Medicine Progress Note ---
Progress Note Date of Service Apr 05, 2017. Subjective Pt evaluation today including: conversation w/ patient, physical exam, chart review, lab review The patient was seen and examined at bedside. No acute overnight events. Tmax of 37.1, Not tachycardic. Stringer portion of the history were reviewed, last admission for crohn's was about a year ago. He is on almost scheduled Opiates by his PCP in [place], this has been going on for about two years. He is only on Stelara Injections ever 8 weeks for Crohns. He sees dr. Osborne for this. He reports that his abdominal pain is about the same as yesterday, maybe slight improvement. He was able to tolerate some of his breakfast. Regularly has between 6-12 BM per day at his baseline, came in because of hematochezia and pain. Plan of care was described to the patient and all questions were answered. Constitutional: No fever, No chills, No sweats ENT: No hearing loss Respiratory: No cough, No sputum, No wheezing, No shortness of breath Abdomen: + pain, + diarrhea, No nausea, No vomiting, No constipation Musculoskeletal: No joint pain Male : No dysuria Endo: No fatigue Skin: No rash Objective Physical Exam General Appearance: WD/WN, no apparent distress Eyes: PERRL, EOMI Neck: supple Respiratory/Chest: chest non-tender, lungs clear, normal breath sounds, no respiratory distress, no accessory muscle use Cardiovascular: regular rate, rhythm, no edema, no gallop, no JVD, no murmur Abdomen: no organomegaly, no pulsatile mass, + pertinent finding (TTP in the RLQ, no gaurding, no rebound in any quadrant, active bowel sounds, non tender in the LLQ LUQ or RUQ. No signs of trauma. 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 Patient has chronic abdominal pain and is on scheduled Oxycodone by his PCP. He was started on IV Zosyn. Oxycodone and Dilautid for pain control and Methylprednisone 40mg IV BID for inflammation. RLQ pain possibly secondary to Crohn's exacerbation - Patient has a longstanding history of Crohn's disease. ESR was 28. Lipase 240. - Was able to tolerate some of his clear liquid diet. - Add IV fluids - Oxycodone 15mg PO QID PRN + Oxycodone 5mg Q4 PRN + IV Dilaudid 1mg Q2H PRN - c/w Methylpred IV 40 mg bid - c/w Zosyn, Day #1 - ESR tomorrow AM. - Appreciate GI recommendations going forward. DVT Prophylaxis - will just use SCD now - If prolonged hospital stay will put on Hep SQ BID FULL CODE Resident Involvement: Resident Care Provided Care Provided: Adult Hospital Medicine Reviewed: Pt Seen/Exam by Me History continues to have significant abdominal pain. needing IV pain meds regularly Constitutional: denies: fever Respiratory: negative: short of breath Cardiovascular: denies chest pain General Appearance: mild distress Respiratory: lungs clear, no respiratory distress Cardiovascular: regular rate, rhythm Gastrointestinal: normal bowel sounds, soft, tenderness (right LQ) Neurologic/Psychiatric: alert, oriented x 3 Skin Characteristics: warm/dry Assessment/Plan Resident Physician Supervision Note: I independently interviewed and examined the patient and verified the stringer history and physical, reviewed labs and image studies, discussed the case with the resident Dr. Marin and agree with the findings and care plan.
[2017-04-05] MEDS: METHYLPREDNISOLONE IV 40 MG in SYRINGE 0 ML IV SCH ×2 (08:47→21:10)
[2017-04-05 09:46] VITALS: O2SAT 98
--- NOTE | 2017-04-05 09:52 | Gastrointestinal Consultation ---
Gastrointestinal Consultation Date of Consultation: Apr 05, 2017 Attending Physician: Oliva Still Consulting Physician: Carlos Alberto Cabrera Reason for Consultation: Crohns flare History of Present Illness Patient is a 41 year old male with chief complaint of abd pain and diarrhea. Reviewed [place] and [facility] EMR as well as [facility] ER report. 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 He was treated with Humira and Remicade which worked for couple years then stopped working. Cimzia and Entyvio had severe joint effusions knees so stopped. Has one dose of Stelara and due for next 8 week dose around rosy. No steroids since about the summer with flare then. Most recent colonoscopy 11/23/2016 mod to severe ulceration at ileocolonic anastomosis path inflammation, random colon path negative. Over last few months patient states worsening of his chronic RLQ pain (on po narcotics at home). In last few days diarrhea worsening with blood noted in it. Also pain up to 10/10. Went to [facility] ER last pm and transferred here. Dr Veliz is his usual GI. ON reviewing labs ESR 28 high, mildly elevated WBC, LFTS and lipase normal. KUB mild gaseous distension SB loops. 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 He feels that the perianal fistula is about baseline. He states this constellation of symptoms is typical for his crohns exacerbation. Pain level about the same today. Four loose stools overnight but no blood in them. Past Medical/Surgical History Medical Problems: (1) Abdominal pain Status: Acute (2) Crohn disease Status: Acute (3) Crohn's disease Status: Chronic Family History FH: Crohn's disease cousin cousin FH: suicide MOTHER Social History Smoking Status: Never Smoker Drug Use: none Marital Status: single Occupation Status: unemployed, disabled Allergies Coded Allergies: Vedolizumab (Verified Allergy, Severe, LEG SWOLLEN, 02/20/17) Azathioprine (Verified Allergy, Unknown, JOINTS SWELLING, 02/20/17) Infliximab (Verified Adverse Reaction, Unknown, "remicade stopped working for me", 02/20/17) Morphine (Verified Adverse Reaction, Unknown, "does not work for me;only dilaudid", 02/20/17) Current Medications Home Meds and Scripts Medications Dose Route/Sig Max Daily Dose Days Date Category Dose Instructions Prednisone 10 Mg Tab 20 Mg PO DAILY 02/20/17 Rx Vitamin D 85247 Unit (Ergocalciferol) 50,000 Unit Cap 50,000 Unit PO WK 02/20/17 Reported TAKES ON SUNDAYS Zofran (Ondansetron HCl) 8 Mg Tab 8 Mg PO Q6H PRN 11/09/16 Reported Roxicodone Ir (Oxycodone HCl) 5 Mg Tab 5 Mg PO Q4H PRN 11/09/16 Reported Roxicodone (Oxycodone Hcl) 15 Mg Tab 15 Mg PO QID PRN 11/09/16 Reported Methotrexate 2.5 Mg Tab 6 Tab PO DAILY 07/16/16 Reported TAKES ON MONDAYS Folvite (Folic Acid) 1 Mg Tab 1 Mg PO 6XWK 07/16/16 Reported Review of Systems See HPI. otherwise 10 ROS negative. Physical Exam Date Time Temp Pulse Resp B/P (MAP) Pulse Ox O2 Delivery O2 Flow Rate FiO2 04/05/17 09:46 98 Room Air 04/05/17 07:12 36.7 64 18 119/78 (92) 98 Room Air 04/05/17 00:00 98 Room Air 04/04/17 23:44 37.1 65 18 127/85 (99) 97 Room Air 04/04/17 21:45 37.0 67 18 128/78 98 Room Air 04/04/17 20:15 37.0 67 18 128/78 (95) 98 Room Air General Appearance: WD/WN, no apparent distress Respiratory/Chest: lungs clear, no respiratory distress Cardiovascular: regular rate, rhythm, no edema, no murmur Abdomen: normal bowel sounds, soft, no organomegaly, no pulsatile mass, + guarding (RLQ but no rebound), + pertinent finding (perianal inspection--seton in place mild induration/pain) Neurologic/Psych: no motor/sensory deficits, normal mood/affect, oriented x 3 Skin: normal color, warm/dry Laboratory Results Last 24 Hours Test 04/04/17 22:33 White Blood Count 10.65 K/uL Red Blood Count 4.62 M/uL Hemoglobin 12.2 g/dL Hematocrit 36.3 % Mean Corpuscular Volume 78.6 fL Mean Corpuscular Hemoglobin 26.4 pg Mean Corpuscular Hemoglobin Concent 33.6 g/dl Platelet Count 203 K/uL Mean Platelet Volume 9.8 fL Neutrophils (%) (Auto) 71.6 % Lymphocytes (%) (Auto) 18.5 % Monocytes (%) (Auto) 8.4 % Eosinophils (%) (Auto) 1.1 % Basophils (%) (Auto) 0.2 % Neutrophils # (Auto) 7.63 K/uL Lymphocytes # (Auto) 1.97 K/uL Monocytes # (Auto) 0.89 K/uL Eosinophils # (Auto) 0.12 K/uL Basophils # (Auto) 0.02 K/uL RDW Standard Deviation 44.3 fL RDW Coefficient of Variation 15.3 % Immature Granulocyte % (Auto) 0.2 % Immature Granulocyte # (Auto) 0.02 K/uL Erythrocyte Sedimentation Rate 28 mm/hr Prothrombin Time 11.0 SECONDS Prothromb Time International Ratio 1.0 Activated Partial Thromboplast Time 30.6 SECONDS Partial Thromboplastin Ratio 1.2 Sodium Level 139 mmol/L Potassium Level 3.3 mmol/L Chloride Level 104 mmol/L Carbon Dioxide Level 31 mmol/L Anion Gap 4.0 mmol/L Blood Urea Nitrogen 7 mg/dl Creatinine 0.87 mg/dl Est Creatinine Clear Calc Drug Dose 114.9 ml/min Estimated GFR () 124.2 Estimated GFR (Non- 107.2 BUN/Creatinine Ratio 7.6 Random Glucose 94 mg/dl Calcium Level 8.7 mg/dl Total Bilirubin 0.6 mg/dl Aspartate Amino Transf (AST/SGOT) 9 U/L Alanine Aminotransferase (ALT/SGPT) 22 U/L Alkaline Phosphatase 74 U/L Total Protein 6.9 gm/dl Albumin 3.2 gm/dl Globulin 3.7 gm/dl Albumin/Globulin Ratio 0.9 Lipase 240 U/L Impression Patient is a 41 year old male Plan Crohns disease--seems like typical flare so continue IV steroids diarrhea--crohns flare most likely but check Cdiff and stool cx GI bleeding --consistent with crohns flare but check cdif and stool cx abd pain--compatible with crohns flare. perianal fistula---stable per patient Discussed with patient electing to skip CT of A/P to minimize radiation in patient that typically would have lot of them done over course of their lives. However, if he does not improve or worsens in next [address] to look for abscess. Pt ok with no CT for now.
[2017-04-05 10:47] LABS: BASO % 0.3 %; BASO ABS # 0.03 K/uL (0-0.2); HEMATOCRIT 36.4 % (42-52); IG% 0.2 %; LYMPH % 11.9 %; LYMPH ABS # 1.17 K/uL (1.2-3.4); MEAN CELL VOLUME 78.6 fL (80-100); MEAN CORPUSCULAR HEMOGLOBIN 26.6 pg (25-34); MONO % 3.7 %; NEUT % 82.9 %; PLATELET COUNT 209 K/uL (130-400); RED BLOOD COUNT 4.63 M/uL (4.7-6.1); WHITE BLOOD COUNT 9.85 K/uL (4.8-10.8)
[2017-04-05 10:56] LABS: COMPLETE YES; MEAN CORPUSCULAR HGB CONC 33.8 g/dl (32-36)
[2017-04-05 11:05] LABS: BUN/CREATININE RATIO 7.5 (10-20); CALCIUM 8.6 mg/dl (8.5-10.1); CREATININE 1.02 mg/dl (0.60-1.40); POTASSIUM 3.6 mmol/L (3.5-5.1)
[2017-04-05 11:10] LABS: ALB/GLOB RATIO 0.9 (0.9-2)
[2017-04-05 15:34] VITALS: BP 119/74; PULSE 60; TEMP 36.9; O2SAT 97
[2017-04-05] MEDS: D5NSS + 20MEQ KCL 1,000 ML IV SCH (16:07)
[2017-04-05 20:50] LABS: URINE APPEARANCE CLEAR (CLEAR); URINE BILIRUBIN NEG (NEG); URINE COLOR YELLOW; URINE NITRITE NEG (NEG); UROBILINOGEN NEG (NEG); ZZUR CULT IF INDIC CLEAN CATCH NO
[2017-04-05 20:55] LABS: MANUAL MICROSCOPIC REQUIRED? NO; REVIEW REQ? NO
[2017-04-05 22:39] VITALS: BP 112/67; PULSE 60; TEMP 36.6; O2SAT 92
[2017-04-06] MEDS: OXYCODONE HCL IR 5 MG TAB (IMMEDIATE RELEASE) PO PRN ×6 (00:46→21:46)
[2017-04-06] MEDS: ONDANSETRON INJ 2 MG/ML 2 ML VIAL IV PRN ×3 (01:59→15:39)
[2017-04-06] MEDS: HYDROmorphone INJ 1 MG/ML SYR IV PRN ×10 (02:00→23:03)
[2017-04-06] MEDS: PIPERACILL/TAZOBAC IV 3.375 GM in DEXTROSE 5% 100ML IV SCH ×3 (04:05→20:37)
[2017-04-06] MEDS: D5NSS + 20MEQ KCL 1,000 ML IV SCH (05:13)
[2017-04-06 07:14] VITALS: BP 110/71; PULSE 62; TEMP 36.6; O2SAT 96
[2017-04-06 07:15] LABS: BASO % 0.1 %; BASO ABS # 0.01 K/uL (0-0.2); COMPLETE YES; HEMATOCRIT 37.4 % (42-52); IG% 0.2 %; LYMPH % 16.4 %; LYMPH ABS # 1.63 K/uL (1.2-3.4); MEAN CELL VOLUME 78.9 fL (80-100); MEAN CORPUSCULAR HEMOGLOBIN 26.4 pg (25-34); MEAN CORPUSCULAR HGB CONC 33.4 g/dl (32-36); MEAN PLATELET VOLUME 9.7 fL (7.4-10.4); MONO % 5.9 %; NEUT % 77.4 %; PLATELET COUNT 206 K/uL (130-400); RED BLOOD COUNT 4.74 M/uL (4.7-6.1); WHITE BLOOD COUNT 9.92 K/uL (4.8-10.8)
[2017-04-06] MEDS: METHYLPREDNISOLONE IV 40 MG in SYRINGE 0 ML IV SCH ×2 (07:47→20:37)
[2017-04-06 07:48] LABS: BUN/CREATININE RATIO 6.1 (10-20); CALCIUM 8.6 mg/dl (8.5-10.1); CREATININE 0.94 mg/dl (0.60-1.40); POTASSIUM 4.6 mmol/L (3.5-5.1)
[2017-04-06 07:53] LABS: ALB/GLOB RATIO 0.8 (0.9-2)
[2017-04-06 09:40] VITALS: O2SAT 98
--- NOTE | 2017-04-06 12:28 | Family Medicine Progress Note ---
Progress Note Date of Service Apr 06, 2017. Subjective Pt evaluation today including: conversation w/ patient, physical exam, chart review, lab review Patient was seen and examined at bedside. Continues to complain of abdominal pain. States that the PO morphine doesn't work and that the IV Dilaudid only lasts for one hour. Patient is eating clear liquids. Patient denies being hungry. Constitutional: No fever, No chills, No sweats ENT: No hearing loss Respiratory: No cough, No sputum, No wheezing, No shortness of breath Abdomen: + pain, + diarrhea, No nausea, No vomiting, No constipation Musculoskeletal: No joint pain Male : No dysuria Endo: No fatigue Skin: No rash Objective Physical Exam Notes: General Appearance: WD/WN, no apparent distress Eyes: PERRL, EOMI Neck: supple Respiratory/Chest: chest non-tender, lungs clear, normal breath sounds, no respiratory distress, no accessory muscle use Cardiovascular: regular rate, rhythm, no edema, no gallop, no JVD, no murmur Abdomen: no organomegaly, no pulsatile mass, + pertinent finding (TTP in the RLQ, no guarding, no rebound in any quadrant, active bowel sounds, non tender in the LLQ LUQ or RUQ. No signs of trauma. 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 Patient has chronic abdominal pain and is on scheduled Oxycodone by his PCP. He was started on IV Zosyn. Oxycodone and Dilautid for pain control and Methylprednisone 40mg IV BID for inflammation. RLQ pain and diarrhea (with hematochezia) likely a Crohn's exacerbation - Patient has a longstanding history of Crohn's disease and diarrhea. ESR was 28. Lipase 240 on admission. Lactate WNL. - C. Diff negative, shiga toxin pending. - Will end IVF today, patient is tolerating his clear liquid diet. - c/w Oxycodone 15mg PO QID PRN + Oxycodone 5mg Q4 PRN + IV Dilaudid 1mg Q2H PRN - c/w Methylpred IV 40 mg bid - c/w Zosyn, Day #2 - ESR downtrending 28-->19. - GI on board, agree with diagnosis, big rec if pain doesn't improve by tomorrow we will do a CT Scan of the abdomen. Insomnia Lunesta prn while in the hospital. DVT Prophylaxis - Starting Hep SQ BID. FULL CODE Resident Involvement: Resident Care Provided Care Provided: Adult Hospital Medicine Reviewed: Pt Seen/Exam by Me History continuing to have same level of abdominal pain. getting IV dilaudid. tolerating clears well Constitutional: denies: fever Respiratory: negative: short of breath Cardiovascular: denies chest pain General Appearance: no apparent distress Respiratory: lungs clear, no respiratory distress Cardiovascular: regular rate, rhythm Neurologic/Psychiatric: alert, oriented x 3 Skin Characteristics: warm/dry Assessment/Plan Resident Physician Supervision Note: I independently interviewed and examined the patient and verified the zapata history and physical, reviewed labs and image studies, discussed the case with the resident Dr. Marin and agree with the findings and care plan.
[2017-04-06 14:52] VITALS: BP 118/77; PULSE 77; TEMP 36.7; O2SAT 99
--- NOTE | 2017-04-06 15:44 | PROGRESS NOTE ---
DATE: 04/06/2017 SUBJECTIVE: The patient continues to have abdominal pain, especially in the right lower quadrant. He is tolerating clear liquids. OBJECTIVE: His vital signs are normal. He is afebrile. He has had no bowel movement today. DATA: Stool for C. diff is negative. White count is 9.92, hemoglobin 12.5, platelets are 206,000. Sed rates 9, albumin is 3.0. The patient has received his loading dose of Stelara and will be due for his next dose in about a month. In the meantime, he is continuing on Solu-Medrol 40 mg twice a day and IV antibiotics and pain medication. PHYSICAL EXAMINATION: His abdomen is flat. There is tenderness in the right lower abdomen with some guarding. IMPRESSION AND PLAN: The patient has ileal Crohn's with small bowel distention on admission. I am concerned that he may be developing some scarring and permanent stricturing of the ileum that may not be amenable to medical therapy. Plan on getting an MR enterography to check the status of his ileum and if it looks like it is permanently scarred, may need to have surgery to have it repaired.
[2017-04-06] MEDS: HEPARIN SOD 5000 UNIT/0.5 ML CARP SQ SCH (20:38)
[2017-04-06] MEDS: ESZOPICLONE 3 MG TAB PO PRN (21:46)
[2017-04-07] VITALS: BP 110/72; PULSE 61; TEMP 36.7; O2SAT 98
[2017-04-07] MEDS: OXYCODONE HCL IR 5 MG TAB (IMMEDIATE RELEASE) PO PRN ×4 (00:59→18:42)
[2017-04-07] MEDS: HYDROmorphone INJ 1 MG/ML SYR IV PRN ×10 (02:21→22:12)
[2017-04-07] MEDS: PIPERACILL/TAZOBAC IV 3.375 GM in DEXTROSE 5% 100ML IV SCH ×3 (04:29→20:57)
[2017-04-07 06:36] LABS: BASO % 0.1 %; BASO ABS # 0.01 K/uL (0-0.2); COMPLETE YES; HEMATOCRIT 38.3 % (42-52); IG% 0.2 %; LYMPH % 14.7 %; LYMPH ABS # 1.84 K/uL (1.2-3.4); MEAN CELL VOLUME 79.3 fL (80-100); MEAN CORPUSCULAR HEMOGLOBIN 26.1 pg (25-34); MEAN CORPUSCULAR HGB CONC 32.9 g/dl (32-36); MEAN PLATELET VOLUME 9.8 fL (7.4-10.4); MONO % 4.3 %; NEUT % 80.7 %; PLATELET COUNT 205 K/uL (130-400); RED BLOOD COUNT 4.83 M/uL (4.7-6.1); WHITE BLOOD COUNT 12.48 K/uL (4.8-10.8)
[2017-04-07 07:13] LABS: BUN/CREATININE RATIO 8.9 (10-20); CALCIUM 8.9 mg/dl (8.5-10.1); CREATININE 0.95 mg/dl (0.60-1.40); POTASSIUM 3.8 mmol/L (3.5-5.1)
[2017-04-07] MEDS: HEPARIN SOD 5000 UNIT/0.5 ML CARP SQ SCH ×2 (07:22→20:58)
--- NOTE | 2017-04-07 07:28 | Family Medicine Progress Note ---
Progress Note Date of Service Apr 07, 2017. Subjective Pt evaluation today including: conversation w/ patient, physical exam, chart review, lab review Patient was seen and examined at bedside. Still has abdominal pain. No vomiting, no loose stools so far today. Pain is better than yesterday. Reports that the PO pain meds don't help. NPO for MRI Enterography today. Hunger: Patient is hungry Perianal Abscess: Constitutional: No fever, No chills, No sweats ENT: No hearing loss Respiratory: No cough, No sputum, No wheezing, No shortness of breath Abdomen: + pain, No nausea, No vomiting, No constipation Musculoskeletal: No joint pain Male : No dysuria Endo: No fatigue Skin: No rash Objective Physical Exam Notes: General Appearance: WD/WN, no apparent distress, similar exam to previous day. Eyes: PERRL, EOMI Neck: supple Respiratory/Chest: chest non-tender, lungs clear, normal breath sounds, no respiratory distress, no accessory muscle use Cardiovascular: regular rate, rhythm, no edema, no gallop, no JVD, no murmur Abdomen: no organomegaly, no pulsatile mass, + pertinent finding (TTP in the RLQ, no guarding, no rebound in any quadrant, active bowel sounds, non tender in the LLQ LUQ or RUQ. No signs of trauma. 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 Patient has chronic abdominal pain and is on scheduled Oxycodone by his PCP. He was started on IV Zosyn. Oxycodone and Dilautid for pain control and Methylprednisone 40mg IV BID for inflammation. RLQ pain and diarrhea (with hematochezia) likely a Crohn's exacerbation - Patient has a longstanding history of Crohn's disease and diarrhea. ESR was 28. Lipase 240 on admission. Lactate WNL. - C. Diff negative, shiga toxin pending. - Advance from clear liquid to full liquid diet. - c/w Oxycodone 15mg PO QID PRN + Oxycodone 5mg Q4 PRN + IV Dilaudid 1mg Q2H PRN - c/w Methylpred IV 40 mg bid - c/w Zosyn, Day #2 - ESR downtrending 28-->19. - GI on board, agree with diagnosis, big rec if pain doesn't improve by tomorrow we will do a CT Scan of the abdomen. Insomnia c/w Lunesta 3mg PRN for insomnia. MSK Walk around hallway once TID. (MISC ordered in chart) DVT Prophylaxis - c/w Hep SQ BID. FULL CODE Resident Involvement: Resident Care Provided Care Provided: Adult Hospital Medicine Reviewed: Pt Seen/Exam by Me History continuing to have abdominal pain. slept for 2 hours last night tolerating clears Constitutional: denies: fever Respiratory: negative: short of breath Cardiovascular: denies chest pain General Appearance: mild distress Respiratory: lungs clear, no respiratory distress Cardiovascular: regular rate, rhythm Gastrointestinal: normal bowel sounds, soft, tenderness (diffuse) Neurologic/Psychiatric: alert, oriented x 3 Assessment/Plan Resident Physician Supervision Note: I independently interviewed and examined the patient and verified the zapata history and physical, reviewed labs and image studies, discussed the case with the resident Dr. Marin and agree with the findings and care plan.
[2017-04-07 08:06] VITALS: BP 115/74; PULSE 63; TEMP 36.6; O2SAT 94
[2017-04-07] MEDS: METHYLPREDNISOLONE IV 40 MG in SYRINGE 0 ML IV SCH ×2 (08:46→20:58)
[2017-04-07] MEDS ORDERED: NURSING VERBAL MED ORDER ONE (09:00)
[2017-04-07] MEDS ORDERED: GLUCAGON FOR INJ 1 MG VIAL ONE (09:00)
[2017-04-07] MEDS ORDERED: GADAVIST IV PRN (10:45)
--- NOTE | 2017-04-07 11:12 | DIAGNOSTIC IMAGING REPORT ---
ENTEROGRAPHY ABD/PELVIS COMBO CLINICAL HISTORY: 41 years-old Male presenting with status of ileum, concern for Crohn's disease flare. TECHNIQUE: Multisequence, multiplanar MR imaging of the abdomen and pelvis was performed before and after the administration of intravenous contrast. IV contrast: 6 mL of Gadavist. COMPARISON: CT from 10/01/2016. FINDINGS: Localizer images: Unremarkable. Lung bases: Lung bases clear. Normal heart size. No pericardial or pleural effusion. Liver: Normal morphology. No liver lesion. Patent hepatic vasculature. Biliary: Suggestion of intervening stenoses in biliary ductal branches to segment 8 and segment 6. No extrahepatic biliary ductal dilatation or stenosis. Normal gallbladder. Pancreas: Normal. Spleen: Normal. Adrenal glands: Normal. Kidneys and ureters: Normal. No hydronephrosis. Bladder: Normal. Pelvic organs: Normal. Bowel: Adequate distention of small bowel with oral contrast. Postsurgical changes of the ileocecectomy with a neoterminal ileum in the right lower quadrant. Dynamic imaging demonstrates normal motility of the small bowel. However, the neoterminal ileum is featureless though previously noted small bowel wall thickening has resolved. This also demonstrates mild hyperemia on arterial phase. No perienteric fat stranding. Adjacent loop of small bowel in the right lower quadrant is distended with contrast on early imaging and without wall thickening. Therefore apparent hyperemia and wall thickening on post contrast imaging is felt to be related to peristalsis (series 18 image 53]. The previously noted inflammatory changes in the peroneal are not included in the field of view as this examination was not tailored for a perianal fistula evaluation. Peritoneal cavity: No free fluid or intraperitoneal gas. Vasculature: Aorta and IVC patent and normal in caliber. Lymph nodes: No enlarged lymph nodes in the abdomen or pelvis. Abdominal wall: Normal. Musculoskeletal: Normal. IMPRESSION: 1. Findings most consistent with chronic changes of inflammatory bowel disease involving the neoterminal ileum. Postsurgical changes of the ileocecectomy with a neoterminal ileum in the right lower quadrant. The lack of small bowel wall thickening and perienteric inflammatory changes suggest against the presence of active inflammation. No abscess or fistula. Notably, the examination was not tailored for a perianal fistula evaluation, and previously noted inflammatory changes in the left medial gluteal cleft are not included within the [id number]. 2. Subtle findings could suggest intervening stenoses in intrahepatic bladder ductal branches to segment 6 and 8. If there is clinical concern and abnormal LFTs, further evaluation with MRCP could be considered as clinically indicated. Electronically signed by: Joseph Perry M.D. 04/07/2017 11:11 AM Dictated Date/Time: 04/07/2017 10:56 AM
[2017-04-07] MEDS: ONDANSETRON INJ 2 MG/ML 2 ML VIAL IV PRN ×2 (12:22→18:38)
--- NOTE | 2017-04-07 12:39 | PROGRESS NOTE ---
DATE: 04/07/2017 SUBJECTIVE: The patient continues to have abdominal pain. He is tolerating clear liquids and had a bowel movement this morning after his MR enterography. OBJECTIVE: VITAL SIGNS: Normal. He is afebrile. ABDOMEN: He has had one bowel movement today. beater tender, especially in the right lower quadrant. LABORATORY DATA: Shows negative stool for bacterial pathogens and C. diff. His albumin is falling at 3.0. White count is still elevated at 12.48. IMAGING DATA: MR enterography today was encouraging and that there is no evidence of obstruction. The surgical anastomosis on the right lower quadrant is patent and the edema that was present in the previous study has resolved. IMPRESSION: The patient's MR enterography is encouraging that there is no obstruction or gross inflammation in the neoterminal ileum. PLAN: On advancing his diet to full liquid diet with some nutritional supplements. If he continues to have pain tomorrow, I do not disagree with getting a CT scan to rule out an abscess.
[2017-04-07 15:27] VITALS: BP 125/76; PULSE 66; TEMP 36.6; O2SAT 98
[2017-04-07] MEDS: BOOST PLUS VANILLA PO SCH ×2 (20:58)
[2017-04-07] MEDS: ESZOPICLONE 3 MG TAB PO PRN (22:11)
[2017-04-07 23:18] VITALS: BP 104/63; PULSE 64; TEMP 36.7; O2SAT 98
[2017-04-08] VITALS: O2SAT 98
[2017-04-08] MEDS: HYDROmorphone INJ 1 MG/ML SYR IV PRN ×4 (00:16→09:48)
[2017-04-08] MEDS: PIPERACILL/TAZOBAC IV 3.375 GM in DEXTROSE 5% 100ML IV SCH (03:45)
[2017-04-08] MEDS: OXYCODONE HCL IR 5 MG TAB (IMMEDIATE RELEASE) PO PRN ×6 (06:34→21:52)
[2017-04-08 06:42] LABS: COMPLETE YES; HEMATOCRIT 39.9 % (42-52); IG% 0.2 %; LYMPH % 15.8 %; LYMPH ABS # 1.97 K/uL (1.2-3.4); MEAN CELL VOLUME 78.2 fL (80-100); MEAN CORPUSCULAR HEMOGLOBIN 26.1 pg (25-34); MEAN CORPUSCULAR HGB CONC 33.3 g/dl (32-36); MONO % 4.1 %; NEUT % 79.9 %; PLATELET COUNT 221 K/uL (130-400); WHITE BLOOD COUNT 12.48 K/uL (4.8-10.8)
[2017-04-08 07:16] LABS: BUN/CREATININE RATIO 11.7 (10-20); CALCIUM 8.9 mg/dl (8.5-10.1); CREATININE 1.01 mg/dl (0.60-1.40); POTASSIUM 4.2 mmol/L (3.5-5.1)
[2017-04-08] MEDS: METHYLPREDNISOLONE IV 40 MG in SYRINGE 0 ML IV SCH ×2 (07:42→20:46)
[2017-04-08] MEDS: BOOST PLUS VANILLA PO SCH ×4 (07:52→20:46)
[2017-04-08] MEDS: HEPARIN SOD 5000 UNIT/0.5 ML CARP SQ SCH ×2 (07:52→20:46)
[2017-04-08 07:54] VITALS: BP 108/68; PULSE 63; TEMP 36.6; O2SAT 98
[2017-04-08] MEDS: ONDANSETRON INJ 2 MG/ML 2 ML VIAL IV PRN (09:48)
--- NOTE | 2017-04-08 10:43 | Family Medicine Progress Note ---
Progress Note Date of Service Apr 08, 2017. Subjective Pt evaluation today including: conversation w/ patient Param was feeling ok today. He reported persistent RLQ pain, but was able to eat his full liquid diet. He did not vomit, though felt some twinges of pain after eating. Denies any diarrhea. Has been ambulating around room, denies dizziness or feeling lightheaded. Constitutional: No fever, No chills, No weight loss, No weakness Eyes: No worsening of vision ENT: No hearing loss Respiratory: No cough, No sputum, No wheezing, No shortness of breath Cardiovascular: No chest pain Abdomen: + pain, + nausea, No vomiting All Other Systems: Reviewed and Negative Medications Current Inpatient Medications Medications (Trade) Dose Ordered Sig/Alo Route Start Time Stop Time Status Last Admin Dose Admin Acetaminophen (Tylenol Tab) 650 mg Q4H PRN PO 04/04/17 22:15 05/04/17 22:14 Al Hydrox/Mg Hydrox/Simethicone (Maalox Max Susp) 15 ml Q4H PRN PO 04/04/17 22:15 05/04/17 22:14 Magnesium Hydroxide (Milk Of Magnesia Susp) 30 ml Q6H PRN PO 04/04/17 22:15 05/04/17 22:14 Polyethylene (Miralax Powder Packet) 17 gm DAILY PRN PO 04/04/17 22:15 05/04/17 22:14 Ondansetron HCl (Zofran Inj) 4 mg Q6H PRN IV 04/04/17 22:15 05/04/17 22:14 04/08/17 09:48 4 MG Methylprednisolone Sodium Succinate 40 mg/Syringe 0.64 ml @ 1.5 mls/min BID IV 04/05/17 09:00 05/05/17 08:59 04/08/17 07:42 1.5 MLS/MIN Ergocalciferol (Vitamin D Cap) 50,000 interunit Crandall@0900 PO 04/10/17 09:00 05/10/17 08:59 Ondansetron HCl (Zofran Tab) 8 mg Q6H PRN PO 04/04/17 22:15 05/04/17 22:14 04/05/17 02:41 8 MG Oxycodone HCl (Roxicodone Immediate Rel Tab) 15 mg QID PRN PO 04/04/17 22:15 04/18/17 22:14 04/08/17 12:06 15 MG Oxycodone HCl (Roxicodone Immediate Rel Tab) 5 mg Q4H PRN PO 04/04/17 22:15 04/18/17 22:14 04/08/17 13:34 5 MG Heparin Sodium (Porcine) (Heparin Sq 5000 Unit/0.5ml) 5,000 unit Q12 SQ 04/06/17 21:00 05/06/17 20:59 Eszopiclone (Lunesta Tab) 3 mg HSZ PRN PO 04/06/17 16:30 05/06/17 16:29 04/07/17 22:11 3 MG Gadobutrol (Gadavist) 6 mmol UD PRN IV 04/07/17 10:45 04/11/17 10:44 Enteral Nutritional Formula (Boost Plus Vanilla) 1 can BID PO 04/07/17 21:00 05/07/17 20:59 04/08/17 07:52 1 CAN Ondansetron HCl (Zofran Odt) 4 mg Q4H PRN PO 04/08/17 10:45 05/08/17 10:44 Objective Vital Signs Date Time Temp Pulse Resp B/P (MAP) Pulse Ox O2 Delivery O2 Flow Rate FiO2 04/08/17 08:00 Room Air 04/08/17 07:54 36.6 63 18 108/68 (81) 98 Room Air 04/08/17 00:00 98 Room Air 04/07/17 23:18 36.7 64 20 104/63 (77) 98 Room Air 04/07/17 18:21 Room Air 04/07/17 15:27 36.6 66 18 125/76 (92) 98 Room Air Physical Exam General Appearance: WD/WN, no apparent distress, + pertinent finding (laying in bed comfortably, eating porridge) Eyes: normal inspection, PERRL ENT: hearing grossly normal Neck: supple, no JVD Respiratory/Chest: lungs clear, normal breath sounds, no respiratory distress Cardiovascular: regular rate, rhythm, no murmur Abdomen: soft, + guarding (mild guarding to RLQ) Extremities: non-tender, normal inspection, no pedal edema Neurologic/Psychiatric: alert, normal mood/affect, oriented x 3 Skin: no rash Laboratory Results Last 24 Hours Test 04/08/17 06:26 White Blood Count 12.48 K/uL Red Blood Count 5.10 M/uL Hemoglobin 13.3 g/dL Hematocrit 39.9 % Mean Corpuscular Volume 78.2 fL Mean Corpuscular Hemoglobin 26.1 pg Mean Corpuscular Hemoglobin Concent 33.3 g/dl Platelet Count 221 K/uL Mean Platelet Volume 10.0 fL Neutrophils (%) (Auto) 79.9 % Lymphocytes (%) (Auto) 15.8 % Monocytes (%) (Auto) 4.1 % Eosinophils (%) (Auto) 0.0 % Basophils (%) (Auto) 0.0 % Neutrophils # (Auto) 9.97 K/uL Lymphocytes # (Auto) 1.97 K/uL Monocytes # (Auto) 0.51 K/uL Eosinophils # (Auto) 0.00 K/uL Basophils # (Auto) 0.00 K/uL RDW Standard Deviation 43.5 fL RDW Coefficient of Variation 15.1 % Immature Granulocyte % (Auto) 0.2 % Immature Granulocyte # (Auto) 0.03 K/uL Sodium Level 138 mmol/L Potassium Level 4.2 mmol/L Chloride Level 103 mmol/L Carbon Dioxide Level 30 mmol/L Anion Gap 5.0 mmol/L Blood Urea Nitrogen 12 mg/dl Creatinine 1.01 mg/dl Est Creatinine Clear Calc Drug Dose 99.0 ml/min Estimated GFR () 106.6 Estimated GFR (Non- 92.0 BUN/Creatinine Ratio 11.7 Random Glucose 117 mg/dl Calcium Level 8.9 mg/dl MRI ENTEROGRAPHY IMPRESSION: 1. Findings most consistent with chronic changes of inflammatory bowel disease involving the neoterminal ileum. Postsurgical changes of the ileocecectomy with a neoterminal ileum in the right lower quadrant. The lack of small bowel wall thickening and perienteric inflammatory changes suggest against the presence of active inflammation. No abscess or fistula. Notably, the examination was not tailored for a perianal fistula evaluation, and previously noted inflammatory changes in the left medial gluteal cleft are not included within the [id number]. 2. Subtle findings could suggest intervening stenoses in intrahepatic bladder ductal branches to segment 6 and 8. If there is clinical concern and abnormal LFTs, further evaluation with MRCP could be considered as clinically indicated. Assessment and Plan Param is a 41 yo M, day 5 of a Crohn's disease flare, with persistent pain / nausea, now tolerating full liquid diet. Crohn's disease exacerbation - Followed by his outpatient GI physician, Dr Veliz. - Received Stelara q 8 weeks, has had one dose so far, next dose due around Xmas. - Methotrexate on hold - reportedly takes Mondays. Should clarify w/patient if is compliant. - Received a course of Zosyn, now stopped - Investigations to establish cause of flare have been unremarkable: * Stool culture negative, C. Diff negative * MRI Enterography negative - though GI had concerns of perirectal abscess, which the MRI did not evaluate. If his pain were to worsen, we can obtain a CT scan of the abdomen/pelvis to evaluate. - Receiving IV steroids, on Solumedrol 40mg BID IV - will transition to PO if tolerating his diet today and discuss w/Dr Veliz what taper to put him on. Abdominal pain, from Crohn's disease flare - Had previously required/requested IV dilaudid, was previously prescribed 1mg q2h. Yesterday he had about 10mg IV throughout the entire day. - At this point, as he is able to tolerate PO food, he will be switched to just PO pain medications. - Please contact us if his pain worsens Insomnia - Lunesta started in hospital, will continue that for now. VTE: SCDs, Heparin Dispo: Admitted to Med/Surg Code status: Full Resident Tracking Resident Involvement: Resident Care Provided Care Provided: Adult Hospital Medicine Reviewed: Pt Seen/Exam by Me History tolerating full liquid well. Constitutional: denies: fever Respiratory: negative: short of breath Cardiovascular: denies chest pain General Appearance: no apparent distress Respiratory: lungs clear, no respiratory distress Cardiovascular: regular rate, rhythm Gastrointestinal: normal bowel sounds, soft, tenderness (minimal) Neurologic/Psychiatric: alert, oriented x 3 Assessment/Plan Resident Physician Supervision Note: I independently interviewed and examined the patient and verified the zapata history and physical, reviewed labs and image studies, discussed the case with the resident Dr. Roberts and agree with the findings and care plan.
[2017-04-08] MEDS ORDERED: ONDANSETRON 4MG OD TAB PO PRN (10:45)
[2017-04-08 14:58] VITALS: BP 123/77; PULSE 56; TEMP 36.8; O2SAT 96
--- NOTE | 2017-04-08 19:15 | GASTROENTEROLOGY PROGRESS NOTE ---
DATE: 04/08/2017 GASTROENTEROLOGY INPATIENT PROGRESS NOTE The patient reports doing about the same. Chart reviewed, patient examined. The patient continues to have watery loose stools. He is tolerating puddings reasonably well. He would like to advance his diet and would like to go home as he does not believe much is happening here. There is no blood reported in his stool by the patient. An MR enterography show features consistent with chronic inflammatory bowel disease involving the neoterminal ileum. There are post surgical changes in the right lower quadrant consistent with his history of ileocecal resection. However, there is no significant small bowel wall thickening or perienteric inflammation to suggest active inflammation. Abscess is not appreciated. There is no fistula. The patient's liver tests have been normal since admission. However, the MR enterography suggest perhaps some intervening being stenosis within the intrahepatic ducts and segment 6 and 8. MEDICATIONS: Vitamin D 50,000 units, folic acid, Zofran, Boost, Gadavist, heparin, Lunesta, Solu-Medrol and p.r.n. meds. LABORATORY STUDIES: Today, white count is identical to yesterday at 12.48, his hemoglobin is increased slightly from yesterday and is up to 13.3 from 12.6, MCV is slightly low at 78.2, and platelets are 221,000. Serum chemistries today BUN and creatinine are 12 and 1.0. On admission, his LFTs and two other assessments, all showing normal bilirubin, AST, ALT and alkaline phosphatase. REVIEW OF SYSTEMS: Otherwise noncontributory based on 13-point exam except for mentioned above. PHYSICAL EXAMINATION: VITAL SIGNS: Today afebrile at 36.8, blood pressure 123/77, 96% on room air, heart rate 56 and respirations 16. He has been afebrile since admission. GENERAL: The patient is awake, alert and oriented x3, resting comfortably in bed. HEENT: Oral mucosa moist. HEART: Normal S1, S2. LUNGS: Clear to auscultation. ABDOMEN: Soft, flat, nontender and nondistended with good bowel sounds. EXTREMITIES: Without edema. RECTAL: Deferred. IMPRESSION AND PLAN: The patient is on Stelara for his Crohn's disease. Although overt activity is not identified on the MR enterography, there are persistent chronic changes of known Crohn's disease. The patient is eager to go home and I believe it is reasonable to advance his diet. The white count is of unclear origin but this may be related to his Solu-Medrol dosing. If there is any fever, worsening diarrhea, then I would consider retesting stool for C. diff, although this was a negative assay on 04/05/2017. In addition, routine cultures were also negative. If the patient is discharged tomorrow, we will make arrangements for the patient to follow up with Dr. Veliz in GI clinic as previously scheduled. Dr. Veliz will be covering the service over the weekend. DEEP
[2017-04-08] MEDS: ESZOPICLONE 3 MG TAB PO PRN (21:51)
[2017-04-08 22:45] VITALS: BP 119/75; PULSE 60; TEMP 36.7; O2SAT 96
[2017-04-09] MEDS: OXYCODONE HCL IR 5 MG TAB (IMMEDIATE RELEASE) PO PRN ×5 (04:20→11:34)
[2017-04-09 07:09] LABS: BASO % 0.1 %; BASO ABS # 0.01 K/uL (0-0.2); COMPLETE YES; EOS % 0.1 %; HEMATOCRIT 39.8 % (42-52); IG% 0.3 %; LYMPH % 16.1 %; LYMPH ABS # 2.26 K/uL (1.2-3.4); MEAN CELL VOLUME 77.9 fL (80-100); MEAN CORPUSCULAR HGB CONC 33.4 g/dl (32-36); MEAN PLATELET VOLUME 10.3 fL (7.4-10.4); NEUT % 77.4 %; PLATELET COUNT 238 K/uL (130-400); RED BLOOD COUNT 5.11 M/uL (4.7-6.1); WHITE BLOOD COUNT 14.08 K/uL (4.8-10.8)
[2017-04-09 07:15] VITALS: BP 124/83; PULSE 68; TEMP 36.8; O2SAT 97
[2017-04-09 07:19] VITALS: BP 107/69; PULSE 64; TEMP 36.6; O2SAT 100
[2017-04-09 07:29] LABS: BUN/CREATININE RATIO 16.6 (10-20); CALCIUM 8.9 mg/dl (8.5-10.1); CREATININE 0.92 mg/dl (0.60-1.40); POTASSIUM 3.6 mmol/L (3.5-5.1)
[2017-04-09] MEDS: BOOST PLUS VANILLA PO SCH ×2 (08:02)
[2017-04-09] MEDS: HEPARIN SOD 5000 UNIT/0.5 ML CARP SQ SCH (08:03)
[2017-04-09] MEDS: METHYLPREDNISOLONE IV 40 MG in SYRINGE 0 ML IV SCH (08:03)
[2017-04-09] MEDS ORDERED: PRED10TA PO (08:25)
--- NOTE | 2017-04-09 08:30 | Discharge Instructions ---
Discharge Instructions Date of Service Apr 09, 2017. Admission Reason for Admission: Inflamatory Bowel Disease, Dehydration Discharge Discharge Diagnosis / Problem: Crohn's exacerbation Discharge Goals Goal(s): Improve disease control Activity Recommendations Activity Limitations: resume your previous activity . Instructions / Follow-Up Instructions / Follow-Up you were admitted to the hospital for a Crohn's exacerbation. You were managed with IV pain control and steroids. Our plan is for a prolonged taper of steroids and we would like you to continue to advance your diet as tolerated. There was no indication that the flare up was secondary to a bacterial infection in your stool based on cultures. 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 Current Hospital Diet Patient's current hospital diet: Regular Diet Discharge Diet Recommended Diet: Regular Diet (Advance it as tolerated, please try to maintain small frequent meals ) Pending Studies Studies pending at discharge: no Medical Emergencies . Who to Call and When: Medical Emergencies: If at any time you feel your situation is an emergency, please call 911 immediately. . Non-Emergent Contact Non-Emergency issues call your: Primary Care Provider, Catalyst Supervisor Call Non-Emergent contact if: you have a fever, your pain is worsening, your pain is unusual for you, your pain is concerning you . . "Provider Documentation" section prepared by Mari Lowery. . VTE Core Measure Inpt VTE Proph given/why not?: Unfractionated heparin SQ, SCD's [place] Drug Monitoring Program Search Results: patient reviewed within database, no issues identified Drug Monitoring Findings: Oxycodone as prescribed without additional scripts
[2017-04-09] MEDS ORDERED: NURSING VERBAL MED ORDER ONE (09:30)
[2017-04-09 09:56] VITALS: BP 107/69; PULSE 64; TEMP 36.6; O2SAT 100
--- NOTE | 2017-04-09 11:39 | Discharge Summary ---
Discharge Summary Date of Service Apr 09, 2017. Discharge Summary Admission Date: Apr 04, 2017 at 20:18 Discharge Date: Apr 09, 2017 Discharge Disposition: Home Principal Diagnosis: Crohns disease Problems/Secondary Diagnoses: (1) Crohn's disease Status: Chronic Immunizations: Have You Had Influenza Vaccine: Unknown History of Tetanus Vaccine?: Unknown History of Pneumococcal: Unknown History of Hepatitis B Vaccine: Unknown Consultations: GI- Dr Veliz Medication Reconciliation New Medications: Prednisone (Prednisone) 10 Mg Tab 10 MG PO UD for 20 Days, #190 TAB 50 x 4 days 40 x 4 days 30 x 4 days 20 x 4 days 10 x 4 days and d/c Continued Medications: Ergocalciferol (Vitamin D 17285 Unit) 50,000 Unit Cap 03949 UNIT PO WK, CAP TAKES ON SUNDAYS Folic Acid (Folvite) 1 Mg Tab 1 MG PO 6XWK, TAB Ondansetron Hcl (Zofran) 8 Mg Tab 8 MG PO Q6H PRN for Nausea Oxycodone Hcl (Roxicodone) 15 Mg Tab 15 MG PO QID PRN for Pain Oxycodone Immediate Rel Tab (Roxicodone Ir) 5 Mg Tab 5 MG PO Q4H PRN for Severe Pain Discontinued Medications: Methotrexate (Methotrexate) 2.5 Mg Tab 6 TAB PO DAILY, TAB TAKES ON MONDAYS Prednisone Tab (Prednisone) 10 Mg Tab 20 MG PO DAILY, #60 TAB Discharge Exam Patient states that he has been tolerating the PO medication and food well and is ready for d/c home question addressed and patient reflected understanding of the d/c instructions Review of Systems: Constitutional: No fever, No chills, No sweats Eyes: No worsening of vision ENT: No hearing loss Respiratory: No cough, No sputum, No wheezing, No shortness of breath, No dyspnea on exertion, No dyspnea at rest Cardiovascular: No chest pain Abdomen: + pain (well controlled), No nausea, No vomiting, No diarrhea, No constipation, No GI bleeding Musculoskeletal: No joint pain, No muscle pain Genitourinary - Male: No hematuria, No dysuria Neurologic: No weakness, No numbness/tingling, No balance problems Psychiatric: No depression symptoms Endocrine: No fatigue Integumentary: No rash Physical Exam: General Appearance: no apparent distress Eyes: normal inspection ENT: normal ENT inspection Neck: supple Respiratory/Chest: normal breath sounds, no respiratory distress, no accessory muscle use Cardiovascular: regular rate, rhythm, no murmur, normal peripheral pulses Abdomen / GI: normal bowel sounds, soft, + tenderness (minimal tenderness to RLQ) Extremities: normal inspection, no calf tenderness, no pedal edema, normal range of motion Neurologic/Psychiatric: alert, normal mood/affect, oriented x 3 Skin: normal color, warm/dry, no rash Lymphatic: no adenopathy Hospital Course Param is a 41 yo M, day 5 of a Crohn's disease flare. Crohn's disease exacerbation - The patient was placed on NPO and treated with IV pain medications and steroids. Once patient was tolerating PO the patient was d/c home with a prednisone taper. - Will follow up with PCP in [address] Veliz as previously arranged - To continue Stelara - Investigations to establish cause of flare have been unremarkable: * Stool culture negative, C. Diff negative * MRI Enterography negative - stenosis in intrahepatic ducts was noted (LFT normal) and reflective of chronic changes VTE: SCDs, Heparin ( patient would refuse this) Code status: Full Total Time Spent: Less than 30 minutes This includes examination of the patient, discharge planning, medication reconciliation, and communication with other providers. Discharge Instructions Please refer to the electronic Patient Visit Report (Discharge Instructions) for additional information. Additional Copies To Arnulfo Arreaga D.O. Reviewed: Pt Seen/Exam by Me History abdominal pain much better controlled. tolerating regular diet Constitutional: denies: fever Respiratory: negative: short of breath Cardiovascular: denies chest pain General Appearance: no apparent distress Respiratory: lungs clear, no respiratory distress Cardiovascular: regular rate, rhythm Gastrointestinal: normal bowel sounds, non tender, soft Neurologic/Psychiatric: alert, oriented x 3 Assessment/Plan Resident Physician Supervision Note: I independently interviewed and examined the patient and verified the zapata history and physical, reviewed labs and image studies, discussed the case with the resident Dr. Lowery and agree with the findings and care plan.
--- NOTE | 2017-04-09 11:50 | GASTROENTEROLOGY PROGRESS NOTE ---
DATE: 04/09/2017 DATE: 04/09/2017 The patient is improving. The patient's MRI enterography did not show any evidence of stenosis or worsening of his neoterminal ileum. His white count was slightly elevated, which was attributed to his steroids. The patient is weaned off of his parenteral opiates and now his pain is controlled orally and will be discharged home on p.o. steroids. His next Stelara dose is 04/21/2017. This will be a subcutaneous injection. The patient will be followed up in the office after the next dose sometime in April. MTDD
[2017-04-10] MEDS ORDERED: ERGOCALCIFEROL 50,000 INTER.UNIT CAP PO SCH (09:00)
== END 2017-04-09 12:00 | disposition home or self-care (01) | DRG 387 ==
LOC: C.MS2W 20:18
PROVIDERS: ADMIT Internal Medicine; ATTEND Family Medicine
DX: K50.911 Crohn's disease, unspecified, with rectal bleeding (principal); K60.3 Anal fistula; G47.00 Insomnia, unspecified; Z79.52 Long term (current) use of systemic steroids; Z79.899 Other long term (current) drug therapy

== ENCOUNTER 2017-04-17 12:56 | Emergency (ER) | payer OTHER ==
[~2017-04-17] VITALS: Ht 180.3 cm; Wt 73.2 kg
[~2017-04-17 12:56] MED LIST changes: -METH2.5T PO
[2017-04-17 13:05] VITALS: TEMP 36.8; Ht 180.3 cm; Wt 73.2 kg
[2017-04-17] MEDS ORDERED: ONDANSETRON INJ 2 MG/ML 2 ML VIAL IV STA (13:17)
[2017-04-17] MEDS ORDERED: SODIUM CHLORIDE 0.9% 1000ML 1,000 ML IV STA (13:17)
[2017-04-17] MEDS ORDERED: PIPERACILLIN/TAZOBACTAM 4.5 GM/100ML D5W IV STA (13:17)
--- NOTE | 2017-04-17 13:29 | EMERGENCY ROOM VISIT NOTE ---
History Report prepared by Je: Sara Conway Under the Supervision of: Dr. Royce Fisher M.D. First contact with patient: 13:11 Chief Complaint: OTHER COMPLAINT Stated Complaint: ABCESS History of Present Illness The patient is a 41 year old male who presents to the Emergency Room with complaints of a perianal fistula. He reports that the fistula has been leaking. He states that he is able to move his bowels but that it is painful. He states that he has Crohn's disease and that he was admitted two weeks ago for 4-5 days because of increased symptoms. He states that his pain began when he left the hospital and that the pain has been worsening over the last 10 days. He reports having the chills but not fevers. He also reports having some vomiting but thinks that is from his Crohn's disease. Source of History: patient Onset: 10 days ago Position: other (perianal) Quality: other (fistula ) Associated Symptoms: + chills, + vomiting, No fevers Review of Systems See HPI for pertinent positives & negatives. A total of 10 systems reviewed and were otherwise negative. Past Medical & Surgical Medical Problems: (1) Crohn's disease (2) Exacerbation of Crohn's disease (3) Knee effusion, right (4) Knee pain (5) Knee swelling Surgical Problems: (1) H/O resection of small bowel (2) Hx of appendectomy Family History FH: Crohn's disease cousin cousin FH: suicide MOTHER Social History Smoking Status: Never Smoker Drug Use: none Marital Status: single Occupation Status: unemployed, disabled Current/Historical Medications Scheduled Ergocalciferol (Vitamin D 65682 Unit), 50,000 UNIT PO WK Folic Acid (Folvite), 1 MG PO 6XWK Prednisone (Prednisone), 10 MG PO UD Scheduled PRN Ondansetron Hcl (Zofran), 8 MG PO Q6H PRN for Nausea Oxycodone Hcl (Roxicodone), 15 MG PO Q4 PRN for Pain Oxycodone Immediate Rel Tab (Roxicodone Ir), 5 MG PO Q6 PRN for Severe Pain Allergies Coded Allergies: Vedolizumab (Verified Allergy, Severe, LEG SWOLLEN, 04/17/17) Azathioprine (Verified Allergy, Unknown, JOINTS SWELLING, 04/17/17) Infliximab (Verified Adverse Reaction, Unknown, "remicade stopped working for me", 04/17/17) Morphine (Verified Adverse Reaction, Unknown, "does not work for me;only dilaudid", 04/17/17) Physical Exam Vital Signs Date Time Temp Pulse Resp B/P (MAP) Pulse Ox O2 Delivery O2 Flow Rate FiO2 04/17/17 15:02 92 18 118/74 98 Room Air 04/17/17 13:05 36.8 114 20 128/77 98 Room Air Physical Exam GENERAL: Patient is in no acute distress. HEENT: No acute trauma, normocephalic atraumatic, mucous membranes moist, no nasal congestion, no scleral icterus. NECK: No stridor, no adenopathy, no meningismus, trachea is midline. LUNGS: Clear to auscultation bilaterally, no wheeze, no rhonchi, breath sounds equal. HEART: Tachycardic with a regular rhythm. No murmurs. ABDOMEN: Soft, nontender, bowel sounds positive, no hernias, no peritonitis. EXTREMITIES: No cyanosis or edema, full range of motion of all the joints without pain or difficulty, no signs for acute trauma. NEUROLOGIC: Oriented x 3, no acute motor or sensory deficits, no focal weakness. SKIN: No rash, no jaundice, no diaphoresis. RECTAL: Patient has erythema and swelling to the area of the left buttocks near the rectum. There is a drain in place. This area is tender and firm. Medical Decision & Procedures ER Provider Diagnostic Interpretation: Radiology results as stated below per my review and radiologist interpretation: CT ABD/PELVIS IV CONTRAST ONLY CLINICAL HISTORY: Rectal pain. History of Crohn's disease. COMPARISON STUDY: CT scan dated 10/01/2016, MRI dated 04/07/2017 TECHNIQUE: Following the IV administration of 115 mL of Optiray-320, CT scan of the abdomen and pelvis was performed from the lung bases to the proximal femurs. Images are reviewed in the axial, sagittal, and coronal planes. IV contrast was administered without complication. A dose lowering technique was utilized adhering to the principles of ALARA. CT DOSE: 360.16 mGy.cm FINDINGS: Lower chest: The heart is normal in size and configuration, without pericardial effusion. The lung bases and pleural spaces are clear. Liver: The contrast-enhanced liver is normal in size, contour, and attenuation. There is no intrahepatic biliary ductal dilatation. The hepatic veins and portal veins are patent. Gallbladder: Unremarkable. Spleen: Normal in size and attenuation. Pancreas: Unremarkable. Adrenal glands: Unremarkable. Kidneys: There is symmetric renal cortical enhancement. The kidneys are normal in size without hydronephrosis. Bowel: There are postsurgical changes of a prior distal ileal resection with ileocolonic anastomosis. There is mild distal ileal wall thickening consistent with the history of Crohn's disease. There are no transition zones indicate an abscess. There is no evidence of acute diverticulitis. There is mild to moderate colonic fecal retention. There is infiltration of the fat in the left perirectal/perianal anal region. There is an air bubble within the left ischio rectal fossa consistent with a small abscess. There is a perianal fistula extending to the left gluteal fold. There is a perianal suture. Peritoneum: There is no intraperitoneal free air or abdominal ascites. Vasculature: The abdominal aorta is normal in course and caliber. Adenopathy: None. Pelvic viscera: The bladder, and pelvic viscera are unremarkable. Skeletal structures: No destructive osseous lesions are seen. IMPRESSION: 1. Postsurgical changes of a distal ileal resection with ileocolonic anastomosis 2. Distal ileal bowel wall thickening consistent with the history of Crohn's disease 3. Infiltration the fat within the left ischio rectal fossa. There is a small gas bubble within the soft tissues consistent with an abscess. There is a left perianal fistula extending to the left gluteal fold. Postsurgical changes are visualized at this level. 4. Colonic fecal retention Electronically signed by: Lalo Aguilar M.D. 04/17/2017 2:55 PM Dictated Date/Time: 04/17/2017 2:46 PM Laboratory Results 04/17/17 13:40 Red Blood Count 4.87, Mean Corpuscular Volume 79.7, Mean Corpuscular Hemoglobin 26.7, Mean Corpuscular Hemoglobin Concent 33.5, Mean Platelet Volume 10.1, Neutrophils (%) (Auto) 74.7, Lymphocytes (%) (Auto) 12.8, Monocytes (%) (Auto) 10.3, Eosinophils (%) (Auto) 1.0, Basophils (%) (Auto) 0.1, Neutrophils # (Auto ) 16.00, Lymphocytes # (Auto) 2.75, Monocytes # (Auto) 2.20, Eosinophils # (Auto ) 0.22, Basophils # (Auto) 0.03 04/17/17 13:40 Test 04/17/17 13:40 White Blood Count 21.43 K/uL (4.8-10.8) Red Blood Count 4.87 M/uL (4.7-6.1) Hemoglobin 13.0 g/dL (14.0-18.0) Hematocrit 38.8 % (42-52) Mean Corpuscular Volume 79.7 fL (80-100) Mean Corpuscular Hemoglobin 26.7 pg (25-34) Mean Corpuscular Hemoglobin Concent 33.5 g/dl (32-36) Platelet Count 286 K/uL (130-400) Mean Platelet Volume 10.1 fL (7.4-10.4) Neutrophils (%) (Auto) 74.7 % Lymphocytes (%) (Auto) 12.8 % Monocytes (%) (Auto) 10.3 % Eosinophils (%) (Auto) 1.0 % Basophils (%) (Auto) 0.1 % Neutrophils # (Auto) 16.00 K/uL (1.4-6.5) Lymphocytes # (Auto) 2.75 K/uL (1.2-3.4) Monocytes # (Auto) 2.20 K/uL (0.11-0.59) Eosinophils # (Auto) 0.22 K/uL (0-0.5) Basophils # (Auto) 0.03 K/uL (0-0.2) RDW Standard Deviation 47.1 fL (36.4-46.3) RDW Coefficient of Variation 16.3 % (11.5-14.5) Immature Granulocyte % (Auto) 1.1 % Immature Granulocyte # (Auto) 0.23 K/uL (0.00-0.02) Anion Gap 11.0 mmol/L (3-11) Est Creatinine Clear Calc Drug Dose 95.0 ml/min Estimated GFR () 100.5 Estimated GFR (Non- 86.7 BUN/Creatinine Ratio 16.5 (10-20) Lactic Acid Level 3.1 mmol/L (0.4-2.0) Calcium Level 8.5 mg/dl (8.5-10.1) Total Bilirubin 0.3 mg/dl (0.2-1) Aspartate Amino Transf (AST/SGOT) 8 U/L (15-37) Alanine Aminotransferase (ALT/SGPT) 39 U/L (12-78) Alkaline Phosphatase 72 U/L (45-117) Total Protein 6.8 gm/dl (6.4-8.2) Albumin 3.2 gm/dl (3.4-5.0) Globulin 3.6 gm/dl (2.5-4.0) Albumin/Globulin Ratio 0.9 (0.9-2) Lipase 193 U/L (73-393) Laboratory results reviewed by me. Medications Administered Medications (Trade) Dose Ordered Sig/Alo Route Start Time Stop Time Status Last Admin Dose Admin Ondansetron HCl (Zofran Inj) 4 mg NOW STAT IV 04/17/17 13:17 04/17/17 13:21 DC 04/17/17 13:50 4 MG Sodium Chloride 1,000 ml @ 999 mls/hr Q1H1M STAT IV 04/17/17 13:17 04/17/17 14:17 DC 04/17/17 13:50 999 MLS/HR Hydromorphone HCl (Dilaudid Inj) 1 mg Q30M PRN IV 04/17/17 13:30 05/01/17 13:29 04/17/17 14:14 1 MG Piperacillin Sod/ Tazobactam Sod (Zosyn Iv) 4.5 gm NOW STAT IV 04/17/17 13:17 04/17/17 13:21 DC 04/17/17 13:51 4.5 GM Hydromorphone HCl (Dilaudid Inj) 1 mg STK-MED ONCE .ROUTE 04/17/17 13:43 04/17/17 13:44 DC 04/17/17 13:51 1 MG Vancomycin HCl (Vancomycin 1gm/ 270ml Nss) 1 gm NOW STAT IV 04/17/17 14:06 04/17/17 14:08 DC 04/17/17 14:56 1 GM Sodium Chloride 500 ml @ 999 mls/hr Q31M STAT IV 04/17/17 14:59 04/17/17 15:29 DC 04/17/17 15:22 999 MLS/HR Hydromorphone HCl (Dilaudid Inj) 1 mg STK-MED ONCE .ROUTE 04/17/17 15:15 04/17/17 15:16 DC 04/17/17 15:21 1 MG ED Course 1312: The patient was evaluated in room A11B. A complete history and physical exam was performed. 1317: Ordered Zosyn Iv 4.5 mg IV, Sodium Chloride 1,000 ml @ 999 mls/hr IV, Zofran Inj 4 mg IV. 1330: Ordered Dilaudid Inj 1 mg IV. 1501: Discussed the patient's case with Dr. Soriano. Dr. Soriano thinks that the patient will have to be transferred to [place]. 1520: Discussed the patient's case with Dr. Clay-Colorectal surgery [place]. 1530: Discussed the patient's case with Dr. Hopkins. Medical Decision The patient is a 41 year old male who presents to the ED with complaints of a perianal fistula. Differential diagnoses considered include rectal cellulitis, perirectal abscess, failed outpatient treatment, Crohn's flare, dehydration, electrolyte imbalance, anemia, and sepsis . There is a significant leukocytosis at 21,000, this is consistent with infection. No concerning anemia. No significant electrolyte abnormality, kidney failure or hepatitis. Lactic acid level is over 3, this is consistent with sepsis and/or infection. Abdominal and pelvis CT does suggest a small perirectal abscess. On exam, the patient appeared to have a perianal/buttock cellulitis. The patient received IV saline, IV Zosyn and IV vancomycin. He received IV Zofran for nausea and IV Dilaudid as needed for pain control. The patient is quite ill. He appears to have a perianal or perirectal abscess with a cellulitis in the same area. With his findings, I did speak with our on- call surgeon. The surgeon suggested a transfer to [facility] as the patient has been under their care in the past. I spoke to the on-call colorectal surgeon and ER physician at [facility]. The patient is being transferred by [facility] ambulance to their facility. I spoke to the patient, the paperwork for transfer was filled out. The patient is currently resting fairly comfortably. Medication Reconcilliation Current Medication List: was personally reviewed by me Blood Pressure Screening Patient's blood pressure: Normal blood pressure Consults Time Called: 3174 Consulting Physician: Dr. Soriano-[place] Returned Call: 1501 Discussed the patient's case with Dr. Soriano. Dr. Soriano thinks that the patient will have to be transferred to [facility]. Additional Consults: Time Called: 1440 Consulted Physician: Dr. Clay- [facility]orectal Surgery [place] Returned Call: 1520 Additional Comments: Discussed the patient's case with Dr. PersaudColorectal surgery [place]. Time Called: 1445 Consulted Physician: Dr. Hopkins Returned Call: 1530 Additional Comments: Discussed the patient's case with Dr. Hopkins. The patient will be evaluated for further management. Impression Primary Impression: Perirectal abscess Additional Impressions: Leukocytosis Exacerbation of Crohn's disease Critical Care I have personally spent greater than 30 minutes of critical care time in the direct management of this patient. This includes bedside care, interpretation of diagnostic studies and testing, discussion with consultants, the patient, and family members, and other required patient management activities. This 30 minutes is in excess of all separately billable procedures. Scribe Attestation The scribe's documentation has been prepared under my direction and personally reviewed by me in its entirety. I confirm that the note above accurately reflects all work, treatment, procedures, and medical decision making performed by me. Departure Information Dispostion Transfer Acute Care Facility Referrals Arnulfo Arreaga D.O. (PCP) Patient Instructions [facility] Problem Qualifiers
[2017-04-17] MEDS ORDERED: HYDROmorphone INJ 1 MG/ML SYR ONE ×2 (13:43→15:15)
[2017-04-17] MEDS: HYDROmorphone INJ 2 MG/ML SYR/VIAL IV PRN ×2 (13:51→14:14)
[2017-04-17 13:56] LABS: BASO % 0.1 %; BASO ABS # 0.03 K/uL (0-0.2); COMPLETE YES; HEMATOCRIT 38.8 % (42-52); IG% 1.1 %; LYMPH % 12.8 %; LYMPH ABS # 2.75 K/uL (1.2-3.4); MEAN CELL VOLUME 79.7 fL (80-100); MEAN CORPUSCULAR HEMOGLOBIN 26.7 pg (25-34); MEAN CORPUSCULAR HGB CONC 33.5 g/dl (32-36); MEAN PLATELET VOLUME 10.1 fL (7.4-10.4); MONO % 10.3 %; NEUT % 74.7 %; PLATELET COUNT 286 K/uL (130-400); RED BLOOD COUNT 4.87 M/uL (4.7-6.1); WHITE BLOOD COUNT 21.43 K/uL (4.8-10.8)
[2017-04-17] MEDS ORDERED: VANCOMYCIN 1GM/270ML NSS IV STA (14:06)
[2017-04-17 14:14] LABS: BUN/CREATININE RATIO 16.5 (10-20); CALCIUM 8.5 mg/dl (8.5-10.1); CREATININE 1.06 mg/dl (0.60-1.40); POTASSIUM 3.9 mmol/L (3.5-5.1)
[2017-04-17 14:17] LABS: ALB/GLOB RATIO 0.9 (0.9-2)
[2017-04-17] MEDS ORDERED: OPTIRAY 320 IV PRN (14:30)
--- NOTE | 2017-04-17 14:56 | DIAGNOSTIC IMAGING REPORT ---
CT ABD/PELVIS IV CONTRAST ONLY CLINICAL HISTORY: Rectal pain. History of Crohn's disease. COMPARISON STUDY: CT scan dated 10/01/2016, MRI dated 04/07/2017 TECHNIQUE: Following the IV administration of 115 mL of Optiray-320, CT scan of the abdomen and pelvis was performed from the lung bases to the proximal femurs. Images are reviewed in the axial, sagittal, and coronal planes. IV contrast was administered without complication. A dose lowering technique was utilized adhering to the principles of ALARA. CT DOSE: 360.16 mGy.cm FINDINGS: Lower chest: The heart is normal in size and configuration, without pericardial effusion. The lung bases and pleural spaces are clear. Liver: The contrast-enhanced liver is normal in size, contour, and attenuation. There is no intrahepatic biliary ductal dilatation. The hepatic veins and portal veins are patent. Gallbladder: Unremarkable. Spleen: Normal in size and attenuation. Pancreas: Unremarkable. Adrenal glands: Unremarkable. Kidneys: There is symmetric renal cortical enhancement. The kidneys are normal in size without hydronephrosis. Bowel: There are postsurgical changes of a prior distal ileal resection with ileocolonic anastomosis. There is mild distal ileal wall thickening consistent with the history of Crohn's disease. There are no transition zones indicate an abscess. There is no evidence of acute diverticulitis. There is mild to moderate colonic fecal retention. There is infiltration of the fat in the left perirectal/perianal anal region. There is an air bubble within the left ischio rectal fossa consistent with a small abscess. There is a perianal fistula extending to the left gluteal fold. There is a perianal suture. Peritoneum: There is no intraperitoneal free air or abdominal ascites. Vasculature: The abdominal aorta is normal in course and caliber. Adenopathy: None. Pelvic viscera: The bladder, and pelvic viscera are unremarkable. Skeletal structures: No destructive osseous lesions are seen. IMPRESSION: 1. Postsurgical changes of a distal ileal resection with ileocolonic anastomosis 2. Distal ileal bowel wall thickening consistent with the history of Crohn's disease 3. Infiltration the fat within the left ischio rectal fossa. There is a small gas bubble within the soft tissues consistent with an abscess. There is a left perianal fistula extending to the left gluteal fold. Postsurgical changes are visualized at this level. 4. Colonic fecal retention Electronically signed by: Lalo Augilar M.D. 04/17/2017 2:55 PM Dictated Date/Time: 04/17/2017 2:46 PM
[2017-04-17] MEDS ORDERED: SODIUM CHLORIDE 0.9% 500ML 500 ML IV STA (14:59)
[2017-04-17 15:49] VITALS: BP 124/92; PULSE 96; O2SAT 99
== END 2017-04-17 16:02 | disposition short-term general hospital (02) ==
LOC: C.EDB 12:57 → C.EDA 16:02
DX: K61.1 Rectal abscess (principal); D72.829 Elevated white blood cell count, unspecified; K50.914 Crohn's disease, unspecified, with abscess; Z83.79 Family history of other diseases of the digestive system; Z81.8 Family history of other mental and behavioral disorders

== ENCOUNTER → 2017-11-11 | Outpatient (CLI) | payer OTHER ==
[~2017-11-11] MED LIST changes: +ONDA-170 PO; -ONDA8TAB6 PO; +OPTIRAY 320 IV PRN; +OXYC-737 PO; -OXYC1TAB3 PO; -PRED10TA PO
--- NOTE | 2017-11-11 13:16 | DIAGNOSTIC IMAGING REPORT ---
ABD/PELVIS IV AND ORAL CONT CLINICAL HISTORY: 41 years-old Male presenting with CROHN DISEASE ENTEROGRAPHY STUDY. TECHNIQUE: Multidetector CT of the abdomen and pelvis was performed after the administration of oral and intravenous contrast. An enterography protocol was utilized. IV contrast: 93 mL of Optiray 320. A dose lowering technique was used consistent with the principles of ALARA (as low as reasonably achievable). COMPARISON: 04/17/2017. CT DOSE (mGy.cm): The estimated cumulative dose is 483.53 mGycm. FINDINGS: Geriatrician topogram: Unremarkable. Lung bases: Minimal basilar opacities, likely atelectasis. Normal heart size. No pericardial or pleural effusion. Liver: Normal morphology. No liver lesion. Patent hepatic vasculature. Biliary: Mild central prominence of intrahepatic bile ducts, unchanged. No extra hepatic biliary duct dilatation. Normal gallbladder. Pancreas: Normal. Spleen: Normal. Adrenal glands: Normal. Kidneys and ureters: Normal. No hydronephrosis. Bladder: Incompletely evaluated secondary to underdistention. Pelvic organs: Prostate and seminal vesicles normal. Bowel: Multiple setons in place with infiltration along the left aspect of the medial gluteal fold and infiltration of the left ischiorectal fossa. A small rim-enhancing 1.1 cm fluid collection is noted subjacent to the skin along the left aspect of the medial gluteal fold (series 3 image 462), consistent with abscess. Soft tissue tracking from the largest perianal fistula along the left aspect of the anus which is largely extrasphincteric. This is complex in its branching with a limb coursing inferiorly toward the medial gluteal cleft as well as a limb coursing superiorly in an in the ischiorectal fossa and blind-ending at the left obturator internus. Mucosal hyperenhancement of the rectum and sigmoid colon may be present. Moderate stool burden throughout the colon. Hyperenhancement also suggested of the right colon. Postsurgical changes of ileocecectomy with a patent ileocolic anastomosis in the right mid abdomen. The neoterminal ileum demonstrates mild wall thickening along extended segment. Previously, distal ileal bowel wall thickening was evident though this did not demonstrably involve the neoterminal ileum and may have been less of an extended length of involved bowel. No perienteric inflammatory change. No bowel obstruction. Peritoneal cavity: No free fluid or intraperitoneal gas. Lymph nodes: No enlarged lymph nodes in the abdomen or pelvis. Vasculature: Aorta and IVC patent and normal in caliber allowing for the phase of contrast. Abdominal wall: Normal. No evidence of enterocutaneous fistula. Musculoskeletal: Normal. IMPRESSION: 1. Evidence of a 1.1 cm abscess in the subcutaneous tissue along the left aspect of the medial gluteal fold. This was present to a similar degree on the prior exam. 2. Multiple setons in place with complex perianal fistula primarily along the left incompletely characterized on this CT examination. A branch of the most prominent fistula is blind-ending as it courses superiorly in the ischiorectal fossa. No new abscess. 3. Postsurgical changes of ileocecectomy with patent ileocolic anastomosis. Interval increase in the extent of wall thickening of the distal ileum, which now involves the neoterminal ileum. Given the absence of perienteric inflammatory change, this may represent a mild degree of inflammation. No evidence of penetrating or fibrostenotic disease. 4. Suggestion of mucosal hyperenhancement of the residual right colon as well as the sigmoid colon and rectum. Mucosal inflammatory change cannot be excluded. Electronically signed by: Joseph Perry M.D. 11/11/2017 1:14 PM Dictated Date/Time: 11/11/2017 1:01 PM
== END | disposition home or self-care (01) ==
LOC: C.CTS 11:15
PROVIDERS: ATTEND Colon & Rectal Surgery
DX: Z09 Encounter for follow-up examination after completed treatment for conditions other than malignant neoplasm (principal)